=== PATIENT | female | born 1950 | race Two or more races ===

== ENCOUNTER 2020-05-21 09:17 | Emergency (ER) | payer OTHER, SELFPAY ==
[2020-05-21 11:45] VITALS: BP 158/92; PULSE 84; RESP 18; TEMP 36.9; O2SAT 98; BMI 30.7
--- NOTE | 2020-06-07 08:42 | ED.GENADULT ---
HPI - General Adult General Chief complaint: General Medical Stated complaint: PAIN EVERYWHERE Related Data Previous Rx's Medication Instructions Recorded calcium carbonate 600 mg (1,500 1 tab PO DAILY 90 Days #90 tab 02/18/21 mg)-vitamin D3 200 unit tablet (Calcium 600 + D(3)) Allergies Allergy/AdvReac Type Severity Reaction Status Date / Time lisinopril [LISINOPRIL] Allergy Intermediate SWELLING Verified 02/18/21 09:53 morphine [Morphine] Allergy Mild pruritus Verified 02/18/21 09:53 acetaminophen [Percocet] AdvReac Intermediate stomach Verified 02/18/21 09:53 upset, headaches amitriptyline AdvReac Intermediate dizziness Verified 02/18/21 09:53 celecoxib [From Celebrex] AdvReac Intermediate Dizziness Verified 02/18/21 09:53 codeine [Tylenol-Codeine] AdvReac Intermediate dizziness Verified 02/18/21 09:53 ibuprofen [IBUPROFEN] AdvReac Intermediate DIZZY Verified 02/18/21 09:53 oxycodone [Percocet] AdvReac Intermediate stomach Verified 02/18/21 09:53 upset, headaches tramadol [TRAMADOL] AdvReac Intermediate DIZZY, Verified 02/18/21 09:53 dizziness PMFSH Past Medical History Medical History Impaired glucose tolerance Knee osteoarthritis Mild depression AMBRIZ (nonalcoholic steatohepatitis) Obese Pure hypercholesterolemia Shoulder pain Surgical History History of arthroscopy of right knee History of section History of cholecystectomy History of hemorrhoidectomy Family History Family History Father Lung cancer Mother No problems noted. Social History Social History Household Members: Spouse Housing: House Do you presently have visiting nurse or other home services: No Alcohol intake: never Patient Tobacco Use Status: Never used Tobacco Tobacco use type: Cigarette e-Cigarette/Vaping Use: Never Used Second Hand Smoke Exposure: No service: No Current occupational status: retired Sexual orientation: Straight/Heterosexual Gender identity: Female Physical Exam Vital Signs: Vital Signs: Body Mass Index 30.7 Discharge Plan Discharge Patient Disposition: Left Without Being Seen Discharge Date/Time: 05/21/20 12:12
== END 2020-05-21 12:12 | disposition left against medical advice (07) ==
PROVIDERS: Emergency Provider Emergency Medicine; PCP Internal Medicine
DX: R52 Pain, unspecified (principal)
CPT/HCPCS: 99282

== ENCOUNTER 2020-05-26 09:30 | Outpatient (REF) | payer OTHER, SELFPAY ==
[2020-05-26 11:01] LABS: Alanine Aminotransferase 30 U/L (0-31); Albumin Level 4.2 g/dL (3.5-5.0); Alkaline Phosphatase 128 U/L (39-117); Anion Gap 13 (12-20); Aspartate Amino Transferase 27 U/L (5-31); Bilirubin Total 0.3 mg/dL (0.0-1.0); Blood Urea Nitrogen 17 mg/dL (9-16); Calcium 9.4 mg/dL (8.4-10.2); Carbon Dioxide 25 mmol/L (22-29); Chloride 105 mmol/L (96-108); Cholesterol 187 mg/dL; Estimated Glomerular Filt Rate > 60; Glucose Fasting 117 mg/dL (60-99); HDL Cholesterol 49 mg/dL; LDL Cholesterol Calculated 104 mg/dl; Potassium 4.4 mmol/l (3.3-5.1); Sodium 139 mmol/L (135-145); Total Protein 8.1 g/dL (6.5-8.0); Triglycerides 173 mg/dL
== END 2020-05-26 09:31 | disposition home or self-care (01) ==
LOC: HO.LAB 09:30
PROVIDERS: Visit Provider Internal Medicine
DX: E78.00 Pure hypercholesterolemia, unspecified (principal)
CPT/HCPCS: 80053; 80061

== ENCOUNTER 2020-08-14 07:56 | Outpatient (REF) | payer OTHER, SELFPAY ==
[2020-08-15 11:32] LABS: BV Int Neg Control Negative (Negative); BV Int Pos Control Positive (Positive)
[2020-08-15 13:52] LABS: C. trachomatis RNA TMA NOT DETECTED (NOT DETECTED); N. gonorrhoeae RNA TMA NOT DETECTED (NOT DETECTED)
== END 2020-08-14 07:57 | disposition home or self-care (01) ==
LOC: HO.LAB 07:56
PROVIDERS: PCP Internal Medicine; Visit Provider Obstetrics & Gynecology
DX: Z01.419 Encounter for gynecological examination (general) (routine) without abnormal findings (principal); Z11.3 Encounter for screening for infections with a predominantly sexual mode of transmission
CPT/HCPCS: 36415; 87480; 87491; 87510; 87591; 87660

== ENCOUNTER 2020-08-16 11:05 | Emergency (ER) | payer OTHER, SELFPAY ==
--- NOTE | 2020-08-16 11:10 | ECG_ITS ---
Test Reason : CHEST Blood Pressure : / mmHG Vent. Rate : 080 BPM Atrial Rate : 080 BPM P-R Int : 136 ms QRS Dur : 074 ms QT Int : 384 ms P-R-T Axes : 023 -02 047 degrees QTc Int : 442 ms Normal sinus rhythm Normal ECG No previous ECGs available Referred By: Katarzyna Willingham Electronically Signed By:ELSY TITUS MD
--- NOTE | 2020-08-16 11:10 | XR_ITS ---
EXAMINATION: XR CHEST CLINICAL INFORMATION: Cough COMPARISON: Chest radiograph from 08/16/2017 TECHNIQUE: Frontal view of the chest was obtained. FINDINGS: No focal consolidation. There is no pneumothorax. The trachea is midline. Cardiomediastinal silhouette is not enlarged. Aorta mildly tortuous. There is no pleural effusion. Osseous structures are intact. Soft tissues are unremarkable. XR/XR chest 1V IMPRESSION: No acute cardiopulmonary process.
[2020-08-16 11:12] VITALS: BP 137/56; PULSE 79; RESP 21; TEMP 37.3; O2SAT 96; BMI 32.1
--- NOTE | 2020-08-16 11:13 | ED_ITS ---
HPI - General Adult General Chief complaint: General Medical Stated complaint: weakness, cough, fever Time Seen by Provider: 08/16/20 11:09 Source: patient Mode of arrival: EMS Limitations: no limitations History of Present Illness HPI narrative: Patient comes emergency room complaining of 1 week of weakness, cough, subjective fever, nausea vomiting and diarrhea. States that she has an episode of diarrhea or vomiting almost daily. Patient had a decreased p.o. intake. Patient denies shortness of breath or chest pain. MD complaint: Vomiting, diarrhea, cough Onset (ago): week(s) Related Data Previous Rx's Medication Instructions Recorded diclofenac sodium 50 mg 50 mg PO TID 90 Days #270 tab 05/26/20 tablet,delayed release venlafaxine 37.5 mg 37.5 mg PO BEDTIME 90 Days #90 cap 06/07/20 capsule,extended release 24 hr calcium carbonate 600 mg (1,500 1 cap PO DAILY #90 cap 08/14/20 mg)-vitamin D3 500 unit capsule fluconazole 150 mg tablet 150 mg PO ONCE #1 tab 08/14/20 nystatin 100,000 unit/gram topical 1 appl TOPICAL BID 14 Days #30 g 08/14/20 ointment cefpodoxime 100 mg PO BID #14 tab 08/16/20 Allergies Allergy/AdvReac Type Severity Reaction Status Date / Time celecoxib [From Celebrex] Allergy Unknown Dizziness Verified 08/14/20 08:07 ibuprofen [IBUPROFEN] Allergy Unknown DIZZY Verified 08/14/20 08:07 lisinopril [LISINOPRIL] Allergy Unknown SWELLING Verified 08/14/20 08:07 morphine [Morphine] Allergy Unknown pruritus Verified 08/14/20 08:07 acetaminophen [Percocet] AdvReac Unknown stomach Verified 08/14/20 08:07 upset, headaches amitriptyline AdvReac Unknown dizziness Verified 08/14/20 08:07 codeine [Tylenol-Codeine] AdvReac Unknown dizziness Verified 08/14/20 08:07 oxycodone [Percocet] AdvReac Unknown stomach Verified 08/14/20 08:07 upset, headaches tramadol [TRAMADOL] AdvReac Unknown DIZZY, Verified 08/14/20 08:07 dizziness Review of Systems Review of Systems: Constitutional : Patient reporting subjective fever, chills, fatigue and generalized malaise ENT/Mouth : No Hearing loss, No Ear Pain, No Nasal Congestion, No Sinus Pain, No Hoarseness, No sore throat, No Rhinorrhea, No Swallowing Difficulty Eyes: No Eye Pain, No Swelling, No Redness, No Foreign Body, No Discharge, No Vision Changes Cardiovascular : No Chest Pain, No SOB, No Dyspnea on Exertion, No Orthopnea, No Edema, No Palpitations Respiratory : Complaining of dry cough, No Sputum, No Wheezing, No Smoke Exposu re, No Dyspnea Gastrointestinal : Complaining of nausea, vomiting, diarrhea, No Constipation, No abdominal Pain, No Hematochezia, No Melena Genitourinary : no irregular bleeding, No Dysuria, No Urinary Frequency, No Hematuria, No Urinary Incontinence, No Urgency, No Flank Pain, No Urinary Flow Changes, No Hesitancy Musculoskeletal : No joint pain, No Myalgias, No Joint Swelling Skin : No Skin Lesions, No rash Neuro : No Weakness, No Numbness, No Paresthesias, No Loss of Consciousness, No Dizziness, No Headache Psych : No Anxiety/Panic, No Depression, No SI/HI/AH/VH, No Social Issues, Heme/Lymph: No Bruising, No Bleeding,No Lymphadenopathy Endocrine : No Polyuria, No Polydipsia, No Temperature Intolerance [facility] Past Medical History Medical History (Updated 08/16/20 @ 12:55 by Katarzyna Willingham MD) Knee osteoarthritis Mild depression AMBRIZ (nonalcoholic steatohepatitis) Pure hypercholesterolemia Surgical History History of arthroscopy of right knee History of section History of cholecystectomy History of hemorrhoidectomy Family History Family History Father Lung cancer Mother No problems noted. Social History Social History (Updated 08/14/20 @ 08:07 by DANIELLE Bahena) Alcohol intake: never Smoking Status: Never smoker Use of substances other than those prescribed or required for medical reasons: No Advance Directives: No Advance Directives Information Provided: No Sexual orientation: Straight/Heterosexual Gender identity: female Physical Exam Vital Signs: Vital Signs: Last Vital Signs Temp 99.1 F 08/16/20 11:12 Pulse 79 08/16/20 11:12 Resp 21 H 08/16/20 11:12 BP 137/56 L 08/16/20 11:12 Pulse Ox 96 08/16/20 11:12 Body Mass Index 32.1 Course Course Course Narrative: Patient's nurse and I walked the patient around the [facility] hallway, patient's oxygen saturations stayed at 96%, patient was able to ambulate without assistance Patient's symptoms likely secondary to COVID-19. Patient does have a UTI, white blood cell count within normal limits, no fever, not tachycardic. At this time sepsis is not suspected. Patient's oxygen saturation remains at 99% on room air, respiratory rate 20 Given the patient's age, weakness due to UTI, and COVID-19, I offered and recommended for the patient to be admitted. However patient says that she does not want to stay, states that although she is weak, she can take care of herself, and her can help her as well. Medical Decision Making Lab Data Result diagrams: 08/16/20 11:47 08/16/20 11:46 Labs: Lab Results 08/16/20 08/16/20 08/16/20 Range/Units 11:46 11:46 11:47 WBC 6.5 (4.8-10.8) X10*3/uL RBC 4.68 (4.20-5.50) X10*6/uL Hgb 12.8 (12.0-16.0) g/dl Hct 39.7 (37-47) % MCV 84.8 (80-98) fL MCH 27.4 (27.0-33.0) pg MCHC 32.2 (31.0-35.0) g/dl RDW 13.1 (11.0-16.0) % Plt Count 186 (160-400) X10*3/uL MPV 10.6 (9.4-12.3) fL Immature Gran % (Auto) 0.2 (0.0-0.4) % Neut % (Auto) 57.1 (45-73) % Lymph % (Auto) 30.7 (20-40) % Dickenson % (Auto) 11.8 H (2-11) % Eos % (Auto) 0.0 (0-4) % Baso % (Auto) 0.2 (0-2) % Lymph # (Auto) 2.0 (1.2-4.9) X10*3/uL [place]enson # (Auto) 0.8 (0.1-1.2) X10*3/uL Eos # (Auto) 0.0 (0.0-0.4) X10*3/uL Baso # (Auto) 0.0 (0.0-0.2) X10*3/uL Abs Immat Gran (auto) 0.01 (0.00-0.03) X10*3/uL Absolute Neuts (auto) 3.7 (2.0-8.3) X10*3/uL Absolute Nucleated RBC 0.000 (0.0-0.012) X10*3/uL Nucleated RBC % (auto) 0.0 (0.0-0.2) /100WBC Sodium 141 (135-145) mmol/L Potassium 4.4 (3.3-5.1) mmol/l Chloride 106 (96-108) mmol/L Carbon Dioxide 22 (22-29) mmol/L Anion Gap 17 (12-20) BUN 18 H (9-16) mg/dL Creatinine 0.93 (0.5-1.4) mg/dL Estim Creat Clear Calc 54.3 Estimated GFR 60 Random Glucose 136 H (60-115) mg/dL Calcium 8.7 D (8.4-10.2) mg/dL Total Bilirubin 0.5 (0.0-1.0) mg/dL Direct Bilirubin 0.2 (0.0-0.5) mg/dL AST 74 H (5-31) U/L ALT 48 H (0-31) U/L Alkaline Phosphatase 72 D (39-117) U/L B-Natriuretic Peptide < 10 (<100) pg/mL Total Protein 8.2 H (6.5-8.0) g/dL Albumin 4.1 (3.5-5.0) g/dL Urine Color Urine Appearance Urine pH (5.0-8.0) Ur Specific Metaline (1.005-1.025) Urine Protein (NEG-TRACE) MG/DL Urine Glucose (UA) (NEG) MG/DL Urine Ketones (NEG) MG/DL Urine Blood (NEG) Urine Nitrite (NEG) Ur Leukocyte Esterase (NEG) Urine RBC (0) /HPF Urine WBC (0-4) /HPF Ur Squamous Epith Cells /LPF Urine Bacteria /LPF Urine Mucus /LPF Coronavirus (PCR) (Negative) Influenza Type A (PCR) (Negative) Influenza Type B (PCR) (Negative) RSV RNA Qual (PCR) (Negative) 08/16/20 08/16/20 Range/Units 11:47 11:47 WBC (4.8-10.8) X10*3/uL RBC (4.20-5.50) X10*6/uL Hgb (12.0-16.0) g/dl Hct (37-47) % MCV (80-98) fL MCH (27.0-33.0) pg MCHC (31.0-35.0) g/dl RDW (11.0-16.0) % Plt Count (160-400) X10*3/uL MPV (9.4-12.3) fL Immature Gran % (Auto) (0.0-0.4) % Neut % (Auto) (45-73) % Lymph % (Auto) (20-40) % Dickenson % (Auto) (2-11) % Eos % (Auto) (0-4) % Baso % (Auto) (0-2) % Lymph # (Auto) (1.2-4.9) X10*3/uL Dickenson # (Auto) (0.1-1.2) X10*3/uL Eos # (Auto) (0.0-0.4) X10*3/uL Baso # (Auto) (0.0-0.2) X10*3/uL Abs Immat Gran (auto) (0.00-0.03) X10*3/uL Absolute Neuts (auto) (2.0-8.3) X10*3/uL Absolute Nucleated RBC (0.0-0.012) X10*3/uL Nucleated RBC % (auto) (0.0-0.2) /100WBC Sodium (135-145) mmol/L Potassium (3.3-5.1) mmol/l Chloride (96-108) mmol/L Carbon Dioxide (22-29) mmol/L Anion Gap (12-20) BUN (9-16) mg/dL Creatinine (0.5-1.4) mg/dL Estim Creat Clear Calc Estimated GFR Random Glucose (60-115) mg/dL Calcium (8.4-10.2) mg/dL Total Bilirubin (0.0-1.0) mg/dL Direct Bilirubin (0.0-0.5) mg/dL AST (5-31) U/L ALT (0-31) U/L Alkaline Phosphatase (39-117) U/L B-Natriuretic Peptide (<100) pg/mL Total Protein (6.5-8.0) g/dL Albumin (3.5-5.0) g/dL Urine Color DARK YELLOW Urine Appearance CLOUDY Urine pH 6.0 (5.0-8.0) Ur Specific Metaline >= 1.030 H (1.005-1.025) Urine Protein 2+ H (NEG-TRACE) MG/DL Urine Glucose (UA) NEG (NEG) MG/DL Urine Ketones 5 (NEG) MG/DL Urine Blood TRACE (NEG) Urine Nitrite POS H (NEG) Ur Leukocyte Esterase 1+ H (NEG) Urine RBC 0-2 (0) /HPF Urine WBC 5-9 H (0-4) /HPF Ur Squamous Epith Cells 3+ /LPF Urine Bacteria 2+ /LPF Urine Mucus TRACE /LPF Coronavirus (PCR) POSITIVE A (Negative) Influenza Type A (PCR) NEGATIVE (Negative) Influenza Type B (PCR) NEGATIVE (Negative) RSV RNA Qual (PCR) NEGATIVE (Negative) Imaging Data Chest x-ray: Radiologist's impression: No focal consolidation Discharge Plan Discharge Clinical Impression: COVID-19, Acute UTI Patient Disposition: Home, Self-Care Instructions: Dysuria (ED), COVID-19 (Coronavirus Disease 2019) (ED) Additional Instructions: You tested positive for COVID-19. You need to self quarantine for 14 days. If you have any shortness of breath, worsening symptoms, please return to emergency room or call 911. Prescriptions: New cefpodoxime 100 mg tablet 100 mg PO BID Qty: 14 RF: 0 No Action venlafaxine 37.5 mg capsule,extended release 24hr 37.5 mg PO BEDTIME 90 Days Qty: 90 RF: 3 diclofenac sodium 50 mg tablet,delayed release (DR/EC) 50 mg PO TID 90 Days Qty: 270 RF: 2 calcium carbonate-vitamin D3 [Calcium 600 with Vitamin D3] 600 mg(1,500mg) - 500 unit capsule 1 cap PO DAILY Qty: 90 RF: 3 fluconazole 150 mg tablet 150 mg PO ONCE Qty: 1 RF: 0 nystatin 100,000 unit/gram ointment 1 appl topical BID 14 Days Qty: 30 RF: 0
[2020-08-16 11:53] LABS: Basophils Percent Auto 0.2 % (0-2); Hematocrit 39.7 % (37-47); Hemoglobin 12.8 g/dl (12.0-16.0); Imm Gran Abs Auto 0.01 X10*3/uL (0.00-0.03); Imm Gran Pct Auto 0.2 % (0.0-0.4); Lymphocytes Percent Auto 30.7 % (20-40); MANUAL DIFF FLAG NO; Mean Corpuscular HGB Conc 32.2 g/dl (31.0-35.0); Mean Corpuscular Hemoglobin 27.4 pg (27.0-33.0); Mean Corpuscular Volume 84.8 fL (80-98); Mean Platelet Volume 10.6 fL (9.4-12.3); Monocytes Absolute Auto 0.8 X10*3/uL (0.1-1.2); Monocytes Percent Auto 11.8 % (2-11); Neutrophils Absolute Auto 3.7 X10*3/uL (2.0-8.3); Neutrophils Percent Auto 57.1 % (45-73); Platelet Count 186 X10*3/uL (160-400); Red Blood Count 4.68 X10*6/uL (4.20-5.50); Red Cell Distribution Width 13.1 % (11.0-16.0); White Blood Count 6.5 X10*3/uL (4.8-10.8)
[2020-08-16] MEDS: 0.9 % Sodium Chloride 1,000 ML 999 ML IVCONT (11:53)
[2020-08-16] MEDS: ondansetron HCL 4 MG/2 ML VIAL IVPUSH (11:53)
[2020-08-16] MEDS: Loperamide HCl 2 MG CAPSULE 4 MG PO (11:53)
[2020-08-16 11:56] LABS: Glucose Urine UA NEG (NEG); Leukocyte Esterase Urine 1+ (NEG); Nitrite Urine POS (NEG); Specific Gravity - Urine >= 1.030 (1.005-1.025); Urine Blood TRACE (NEG); Urine Ketones 5 MG/DL (NEG); Urine Protein 2+ MG/DL (NEG-TRACE)
[2020-08-16 12:01] LABS: Appearance Urine CLOUDY; Color Urine DARK YELLOW
[2020-08-16 12:08] LABS: Bacteria Urine 2+ /LPF; Mucus Urine TRACE /LPF; RBC Urine 0-2 /HPF (0); Squamous Epithelial Cell Urine 3+ /LPF
[2020-08-16 12:32] LABS: Influenza A PCR NEGATIVE (Negative); Influenza B PCR NEGATIVE (Negative); Resp Syncy Virus RNA Qual PCR NEGATIVE (Negative); SARS COV2 PCR INHOUSE POSITIVE (Negative)
[2020-08-16 12:41] LABS: Alanine Aminotransferase 48 U/L (0-31); Albumin Level 4.1 g/dL (3.5-5.0); Alkaline Phosphatase 72 U/L (39-117); Anion Gap 17 (12-20); Aspartate Amino Transferase 74 U/L (5-31); Bilirubin Direct 0.2 mg/dL (0.0-0.5); Bilirubin Total 0.5 mg/dL (0.0-1.0); Blood Urea Nitrogen 18 mg/dL (9-16); Calcium 8.7 mg/dL (8.4-10.2); Carbon Dioxide 22 mmol/L (22-29); Chloride 106 mmol/L (96-108); Creatinine Clr Calc Pharmacy 54.3; Estimated Glomerular Filt Rate 60; Glucose Random 136 mg/dL (60-115); Potassium 4.4 mmol/l (3.3-5.1); Sodium 141 mmol/L (135-145); Total Protein 8.2 g/dL (6.5-8.0)
[2020-08-16 12:46] LABS: B Type Natriuretic Peptide < 10 pg/mL (<100)
[2020-08-16] MEDS: cefTRIAXone sodium 1 GM in 0.9 % Sodium Chloride 50 ML IV (12:57)
[2020-08-16] MEDS: dexAMETHasone sod phosphate 4 MG/ML VIAL 6 MG IVPUSH (12:57)
[2020-08-16 13:37] LABS: Procalcitonin 0.07 ng/mL
== END 2020-08-16 13:41 | disposition home or self-care (01) ==
PROVIDERS: Emergency Provider Emergency Medicine
DX: U07.1 COVID-19 (principal); N39.0 Urinary tract infection, site not specified; R50.9 Fever, unspecified; Z79.899 Other long term (current) drug therapy
CPT/HCPCS: 0241U; 36415; 71045; 80048; 80076; 81001; 81003; 83880; 84145; 85025; 87086; 93005; 96361; 96365; 96375; 99284; J0696; J1100; J2405

== ENCOUNTER 2020-08-18 18:08 | Inpatient (IN) | payer OTHER, SELFPAY ==
[2020-08-18 18:18] VITALS: BP 120/46; PULSE 69; RESP 18; TEMP 36.9; O2SAT 100; BMI 32.1
--- NOTE | 2020-08-18 18:23 | ED_ITS ---
HPI - SOB/Dyspnea General Chief Complaint: Upper Respiratory Symptoms Stated Complaint: DIFFICULTY BREATHING,COVID+ Time Seen by Provider: 08/18/20 18:23 Source: patient Mode of arrival: EMS Limitations: no limitations History of Present Illness HPI Narrative: Patient with no history of lung disease in the past was seen 2 days ago for cough subjective fever nausea vomiting diagnosed as UTI and COVID positive without significant lung infiltrate was saturating 96% at that time and discharged home on cefpodoxime for UTI comes back as continued cough and more shortness of breath and weakness patient was saturating 93% at room air with frequent dry cough when EMS arrived MD elicited complaint: shortness of breath and cough Timing: constant Severity: moderate Exacerbating factors: exertion and coughing Relieving factors: oxygen Related Data Previous Rx's Medication Instructions Recorded diclofenac sodium 50 mg 50 mg PO TID 90 Days #270 tab 05/26/20 tablet,delayed release venlafaxine 37.5 mg 37.5 mg PO BEDTIME 90 Days #90 cap 06/07/20 capsule,extended release 24 hr calcium carbonate 600 mg (1,500 1 cap PO DAILY #90 cap 08/14/20 mg)-vitamin D3 500 unit capsule fluconazole 150 mg tablet 150 mg PO ONCE #1 tab 08/14/20 nystatin 100,000 unit/gram topical 1 appl TOPICAL BID 14 Days #30 g 08/14/20 ointment cefpodoxime 100 mg PO BID #14 tab 08/16/20 Allergies Allergy/AdvReac Type Severity Reaction Status Date / Time celecoxib [From Celebrex] Allergy Unknown Dizziness Verified 08/14/20 08:07 ibuprofen [IBUPROFEN] Allergy Unknown DIZZY Verified 08/14/20 08:07 lisinopril [LISINOPRIL] Allergy Unknown SWELLING Verified 08/14/20 08:07 morphine [Morphine] Allergy Unknown pruritus Verified 08/14/20 08:07 acetaminophen [Percocet] AdvReac Unknown stomach Verified 08/14/20 08:07 upset, headaches amitriptyline AdvReac Unknown dizziness Verified 08/14/20 08:07 codeine [Tylenol-Codeine] AdvReac Unknown dizziness Verified 08/14/20 08:07 oxycodone [Percocet] AdvReac Unknown stomach Verified 08/14/20 08:07 upset, headaches tramadol [TRAMADOL] AdvReac Unknown DIZZY, Verified 08/14/20 08:07 dizziness Review of Systems Review of Systems: Constitutional : No Weight loss, + Fever, No Chills ,malaise+ ENT/Mouth : No sore throat, No Rhinorrhea Eyes: No Eye Pain, No Swelling Cardiovascular : No Chest Pain, no palpitations Respiratory : ++Cough, No Sputum, ++ shortness of breath Gastrointestinal : no Nausea, No Vomiting, No Diarrhea, No abdominal Pain, no black stools Genitourinary : No Dysuria, No Urinary Frequency Musculoskeletal : No joint pain, No Myalgias, No Joint Swelling Skin : No Skin Lesions, No rash Neuro : No Weakness, No Numbness, No Dizziness, No Headache Psych : No Anxiety/Panic, No Depression Heme/Lymph: No Bruising, No Lymphadenopathy Endocrine : No Polyuria, No Polydipsia All other systems reviewed and are negative PMF Past Medical History Medical History Knee osteoarthritis Mild depression AMBRIZ (nonalcoholic steatohepatitis) Pure hypercholesterolemia Surgical History History of arthroscopy of right knee History of section History of cholecystectomy History of hemorrhoidectomy Family History Family History Father Lung cancer Mother No problems noted. Social History Social History Alcohol intake: never Smoking Status: Never smoker Advance Directives: No Advance Directives Information Provided: No Sexual orientation: Straight/Heterosexual Gender identity: female Physical Exam Vital Signs: Vital Signs: Last Vital Signs Temp 98.4 F 08/18/20 18:18 Pulse 68 08/18/20 19:49 Resp 18 08/18/20 19:49 BP 133/59 L 08/18/20 19:49 Pulse Ox 88 L 08/18/20 21:43 Body Mass Index 32.1 Appearance: Alert. Oriented X3. No acute distress. Eyes: Pupils equal, round and reactive to light. ENT: Pharynx normal. Neck: Normal inspection. Neck supple. CVS: Normal heart rate and rhythm. Pulses normal. Respiratory: Mild respiratory distress. Tachypnea+, no crackles, prolonged ex piration++ frequent dry cough Abdomen: Soft and nontender. Bowel sounds are present, no mass palpable, no CVA tenderness Skin: Skin warm and dry. Normal skin color. Normal skin turgor. Extremities: No lower extremity edema. No calf tenderness Neuro: Oriented X 3. No motor deficit. No sensory deficit. Course Course Course Narrative: Patient with COVID-19 CT scan showed diffuse infiltrate pat ient pulse ox at home was 93% at room air in the ER did drop to 88% at room air improved on 4 L to 94% will admit patient for COVID 19 infection with hypoxia also patient troponin elevated without any EKG changes MDM - SOB/Dyspnea Differential Diagnosis Differential diagnosis: Likely pneumonia Medical Records Attestation: I reviewed the patient's medical records. Lab Data Attestation: I reviewed the patient's lab results. Result diagrams: 08/18/20 19:33 08/18/20 19:33 Labs: Lab Results 08/18/20 08/18/20 08/18/20 Range/Units 19:33 19:33 19:33 WBC 7.5 (4.8-10.8) X10*3/uL RBC 4.30 (4.20-5.50) X10*6/uL Hgb 11.7 L (12.0-16.0) g/dl Hct 36.5 L (37-47) % MCV 84.9 (80-98) fL MCH 27.2 (27.0-33.0) pg MCHC 32.1 (31.0-35.0) g/dl RDW 13.3 (11.0-16.0) % Plt Count 216 (160-400) X10*3/uL MPV 10.8 (9.4-12.3) fL Immature Gran % (Auto) 0.3 (0.0-0.4) % Neut % (Auto) 58.7 (45-73) % Lymph % (Auto) 31.1 (20-40) % [place] % (Auto) 9.8 (2-11) % Eos % (Auto) 0.0 (0-4) % Baso % (Auto) 0.1 (0-2) % Lymph # (Auto) 2.3 (1.2-4.9) X10*3/uL [place] # (Auto) 0.7 (0.1-1.2) X10*3/uL Eos # (Auto) 0.0 (0.0-0.4) X10*3/uL Baso # (Auto) 0.0 (0.0-0.2) X10*3/uL Abs Immat Gran (auto) 0.02 (0.00-0.03) X10*3/uL Absolute Neuts (auto) 4.4 (2.0-8.3) X10*3/uL Absolute Nucleated RBC 0.000 (0.0-0.012) X10*3/uL Nucleated RBC % (auto) 0.0 (0.0-0.2) /100WBC PT 14.0 H (10.8-13.0) SEC INR 1.2 H (0.9-1.1) APTT 28.1 (24.1-38.0) SEC D-Dimer 342 NG/ML Sodium 142 (135-145) mmol/L Potassium 3.7 (3.3-5.1) mmol/l Chloride 107 (96-108) mmol/L Carbon Dioxide 24 (22-29) mmol/L Anion Gap 15 (12-20) BUN 14 (9-16) mg/dL Creatinine 0.84 (0.5-1.4) mg/dL Estim Creat Clear Calc 60.2 Estimated GFR > 60 Random Glucose 125 H (60-115) mg/dL Lactic Acid (0.5-2.0) mmol/L Calcium 8.2 L (8.4-10.2) mg/dL Lactate Dehydrogenase 390 H (122-220) U/L Troponin I High Sens (<3.5-17.0) ng/L Procalcitonin ng/mL 08/18/20 08/18/20 08/18/20 Range/Units 19:33 19:33 19:50 WBC (4.8-10.8) X10*3/uL RBC (4.20-5.50) X10*6/uL Hgb (12.0-16.0) g/dl Hct (37-47) % MCV (80-98) fL MCH (27.0-33.0) pg MCHC (31.0-35.0) g/dl RDW (11.0-16.0) % Plt Count (160-400) X10*3/uL MPV (9.4-12.3) fL Immature Gran % (Auto) (0.0-0.4) % Neut % (Auto) (45-73) % Lymph % (Auto) (20-40) % [place] % (Auto) (2-11) % Eos % (Auto) (0-4) % Baso % (Auto) (0-2) % Lymph # (Auto) (1.2-4.9) X10*3/uL [place] # (Auto) (0.1-1.2) X10*3/uL Eos # (Auto) (0.0-0.4) X10*3/uL Baso # (Auto) (0.0-0.2) X10*3/uL Abs Immat Gran (auto) (0.00-0.03) X10*3/uL Absolute Neuts (auto) (2.0-8.3) X10*3/uL Absolute Nucleated RBC (0.0-0.012) X10*3/uL Nucleated RBC % (auto) (0.0-0.2) /100WBC PT (10.8-13.0) SEC INR (0.9-1.1) APTT (24.1-38.0) SEC D-Dimer NG/ML Sodium (135-145) mmol/L Potassium (3.3-5.1) mmol/l Chloride (96-108) mmol/L Carbon Dioxide (22-29) mmol/L Anion Gap (12-20) BUN (9-16) mg/dL Creatinine (0.5-1.4) mg/dL Estim Creat Clear Calc Estimated GFR Random Glucose (60-115) mg/dL Lactic Acid 1.4 (0.5-2.0) mmol/L Calcium (8.4-10.2) mg/dL Lactate Dehydrogenase (122-220) U/L Troponin I High Sens 55.8 H (<3.5-17.0) ng/L Procalcitonin 0.04 ng/mL ECG Data Attestation: I personally reviewed and interpreted this ECG as follows: Interpretation: Normal sinus rhythm with heart rate 69 beats per minute normal axis normal intervals no acute ST T wave changes impression normal EKG Discharge Plan Discharge Clinical Impression: COVID-19, Hypoxia Patient Disposition: Admitted As Inpatient
--- NOTE | 2020-08-18 18:32 | CT_ITS ---
EXAMINATION: CT CHEST WITHOUT CONTRAST CLINICAL INFORMATION: Hypoxia COMPARISON: Chest x-ray 08/16/2020 TECHNIQUE: Multidetector volumetric CT imaging of the chest was done. Axial MIP volume rendering provided. Sagittal and coronal reformatted images were obtained. This CT examination was performed using dose optimization techniques as appropriate, variously including the following: *Automated exposure control *Adjustment of mA and/or kV according to patient size (this includes techniques or standardized protocols for targeted exams where dose is matched to indication/reason for exam; i.e. extremities or head) *Use of iterative reconstruction technique DLP: 299 mGy-cm FINDINGS: PE MANAGER: Well-expanded lungs. LUNGS: The lungs are well-expanded with extensive bilateral ill-defined patchy opacities seen in upper middle and lower lobe suggestive of Covid infection. There is a 3 mm calcified nodule right upper lobe MEDIASTINUM: Thyroid lobes are symmetrical and normal. The central trachea and bronchi widely patent. The heart size and the great vessels are normal caliber. There is calcified right middle mediastinal lymph nodes PLEURA: There is no pleural effusion or thickening. AXILLA: No lymphadenopathy. UPPER ABDOMEN: Visualized liver, spleen, pancreas and bilateral adrenal glands are unremarkable. The gallbladder has been surgically removed. OSSEOUS STRUCTURES: No lytic or sclerotic process seen. There is mild spondylosis mid and lower dorsal spine. No lytic process. CT/CT chest wo con IMPRESSION: Bilateral extensive ill-defined patchy opacity consistent with Covid infection. Calcification the right pericardial region likely lymph node and adjacent calcified nodule right upper lobe.
--- NOTE | 2020-08-18 18:34 | ECG_ITS ---
Test Reason : COUGH Blood Pressure : / mmHG Vent. Rate : 069 BPM Atrial Rate : 069 BPM P-R Int : 140 ms QRS Dur : 082 ms QT Int : 392 ms P-R-T Axes : 011 -07 032 degrees QTc Int : 420 ms Normal sinus rhythm Normal ECG When compared with ECG of 16-AUG-2020 11:35, No significant change was found Referred By: Carrington Castelan Electronically Signed By:ELSY TITUS MD
[2020-08-18 19:45] LABS: MANUAL DIFF FLAG NO
[2020-08-18 19:47] LABS: Basophils Percent Auto 0.1 % (0-2); Hematocrit 36.5 % (37-47); Hemoglobin 11.7 g/dl (12.0-16.0); Imm Gran Abs Auto 0.02 X10*3/uL (0.00-0.03); Imm Gran Pct Auto 0.3 % (0.0-0.4); Lymphocytes Absolute Auto 2.3 X10*3/uL (1.2-4.9); Lymphocytes Percent Auto 31.1 % (20-40); Mean Corpuscular HGB Conc 32.1 g/dl (31.0-35.0); Mean Corpuscular Hemoglobin 27.2 pg (27.0-33.0); Mean Corpuscular Volume 84.9 fL (80-98); Mean Platelet Volume 10.8 fL (9.4-12.3); Monocytes Absolute Auto 0.7 X10*3/uL (0.1-1.2); Monocytes Percent Auto 9.8 % (2-11); Neutrophils Absolute Auto 4.4 X10*3/uL (2.0-8.3); Neutrophils Percent Auto 58.7 % (45-73); Platelet Count 216 X10*3/uL (160-400); Red Cell Distribution Width 13.3 % (11.0-16.0); White Blood Count 7.5 X10*3/uL (4.8-10.8)
[2020-08-18 19:49] VITALS: BP 133/59; PULSE 68; RESP 18; O2SAT 97
[2020-08-18 19:55] LABS: INTERNATIONAL NORM RATIO 1.2 (0.9-1.1)
[2020-08-18 19:58] LABS: D Dimer 342 NG/ML; Partial Thromboplastin Time 28.1 SEC (24.1-38.0)
[2020-08-18 20:03] LABS: Lactic Acid 1.4 mmol/L (0.5-2.0)
[2020-08-18 20:06] LABS: Anion Gap 15 (12-20); Blood Urea Nitrogen 14 mg/dL (9-16); Calcium 8.2 mg/dL (8.4-10.2); Carbon Dioxide 24 mmol/L (22-29); Chloride 107 mmol/L (96-108); Creatinine Clr Calc Pharmacy 60.2; Estimated Glomerular Filt Rate > 60; Glucose Random 125 mg/dL (60-115); Lactate Dehydrogenase 390 U/L (122-220); Potassium 3.7 mmol/l (3.3-5.1); Sodium 142 mmol/L (135-145)
[2020-08-18 20:14] VITALS: PULSE 67; O2SAT 97
[2020-08-18 20:16] LABS: Troponin-I High Sensitivity 55.8 ng/L (<3.5-17.0)
[2020-08-18 20:31] LABS: Procalcitonin 0.04 ng/mL
[2020-08-18 21:43] VITALS: O2SAT 88
--- NOTE | 2020-08-18 21:44 | PC.NURSE ---
PT REMOVED HE NC/OXYGEN 4 LPM. SPO2 88% ROOM AIR. O2 PLACED BACK ON PT BY MD, SPO2 IMPROVED TO HIGH 90'S.
[2020-08-18 22:10] VITALS: BP 117/56; PULSE 76; RESP 20; TEMP 37.9; O2SAT 97
[2020-08-18 23:03] LABS: Troponin-I High Sensitivity 52.9 ng/L (<3.5-17.0)
--- NOTE | 2020-08-18 23:21 | PM.IMHP ---
History of Present Illness Date of Service: 08/18/20 Chief Complaint: Shortness of breath This is a 70-year-old female with past medical history of AMBRIZ, hypercholesterolemia, depression who presents to the hospital with complaints of worsening shortness of breath. Patient is Hebrew-speaking, no staff interpreter on site and therefore history is obtained mostly from staff and EMR. It appears the patient was diagnosed with COVID-19 on recent visit to ED new [facility], returns today stating that her symptoms have worsened including shortness of breath, coughing, and sputum production. She also had nausea vomiting complain of urinary symptoms. She was satting in the high 90s and therefore was sent home on p.o. antibiotics for UTI and was told to follow-up with her symptoms worsened. She returns today stating worsening shortness of breath and cough and overall feeling worse. Patient found to be satting 88% on room air. Vitals on arrival are significant for temp of a 100.2?, heart rate of 76, respiratory rate of 20, blood pressure 117/56, satting 88% on room air, currently on 2 L satting 97% Labs are significant for WBC count 7.5, hemoglobin of 11.7, hematocrit of 36.5, PT of 14, INR 1.2, lactic acid of 1.4, high sensitivity troponin of 55 which trended down to 52.9, denies any chest pain. Procalcitonin of 0.[address] shows bilateral extensive ill-defined patchy opacities consistent with COVID infection Past medical history: Osteoarthritis, hyperlipidemia,AMBRIZ, depression Past surgical history: Knee arthroscopy, , cholecystectomy, hemorrhoidectomy Family history: Lung cancer in father Social history: Comes from home, denies any tobacco alcohol or illicit drugs Review of Systems Review of Systems: Yes all other systems are reviewed and are negative [facility] Medical History Knee osteoarthritis Mild depression AMBRIZ (nonalcoholic steatohepatitis) Pure hypercholesterolemia Family History Father Lung cancer Mother No problems noted. Surgical History History of arthroscopy of right knee History of section History of cholecystectomy History of hemorrhoidectomy Social History Alcohol intake: never Smoking Status: Never smoker Use of substances other than those prescribed or required for medical reasons: No Advance Directives: No Advance Directives Information Provided: No Sexual orientation: Straight/Heterosexual Gender identity: female Meds Allergies Allergy/AdvReac Type Severity Reaction Status Date / Time celecoxib [From Celebrex] Allergy Unknown Dizziness Verified 08/14/20 08:07 ibuprofen [IBUPROFEN] Allergy Unknown DIZZY Verified 08/14/20 08:07 lisinopril [LISINOPRIL] Allergy Unknown SWELLING Verified 08/14/20 08:07 morphine [Morphine] Allergy Unknown pruritus Verified 08/14/20 08:07 acetaminophen [Percocet] AdvReac Unknown stomach Verified 08/14/20 08:07 upset, headaches amitriptyline AdvReac Unknown dizziness Verified 08/14/20 08:07 codeine [Tylenol-Codeine] AdvReac Unknown dizziness Verified 08/14/20 08:07 oxycodone [Percocet] AdvReac Unknown stomach Verified 08/14/20 08:07 upset, headaches tramadol [TRAMADOL] AdvReac Unknown DIZZY, Verified 08/14/20 08:07 dizziness Physical Exam Vital Signs and Narrative: Vital Signs: Last Vital Signs Temp 100.2 F 08/18/20 22:10 Pulse 76 08/18/20 22:10 Resp 20 08/18/20 22:10 BP 117/56 L 08/18/20 22:10 Pulse Ox 97 08/18/20 22:10 Body Mass Index 32.1 Const: General: cooperative, no acute distress, ill appearing and tired appearing Orientation/consciousness: patient oriented x3 Eyes: General: appearance normal, both eyes and all related structures Resp: Other: Tachypneic Effort & Inspection: normal respiratory effort Auscultation: rhonchi Cardio: Rate: regular rate Rhythm: regular rhythm GI: Palpation (GI): Soft to palpation Auscultation: normal bowel sounds Skin: General skin exam: no rashes or lesions noted Neuro: General: patient oriented x3 Cognition (Neuro): normal cognition Extrem: General: Yes normal to inspection and Yes no pedal edema Results Labs CBC and Chem 7: 08/18/20 19:33 08/18/20 19:33 Labs: Laboratory Results - last 24 hr 08/18/20 08/18/20 08/18/20 19:33 19:33 19:33 MCV 84.9 MCH 27.2 MCHC 32.1 RDW 13.3 Plt Count 216 MPV 10.8 Immature Gran % (Auto) 0.3 Neut % (Auto) 58.7 Lymph % (Auto) 31.1 [place] % (Auto) 9.8 Eos % (Auto) 0.0 Baso % (Auto) 0.1 Lymph # (Auto) 2.3 [place] # (Auto) 0.7 Eos # (Auto) 0.0 Baso # (Auto) 0.0 Abs Immat Gran (auto) 0.02 Absolute Neuts (auto) 4.4 Absolute Nucleated RBC 0.000 Nucleated RBC % (auto) 0.0 PT 14.0 H INR 1.2 H APTT 28.1 D-Dimer 342 Anion Gap 15 Estim Creat Clear Calc 60.2 Estimated GFR > 60 Random Glucose 125 H Lactic Acid Calcium 8.2 L Lactate Dehydrogenase 390 H Troponin I High Sens Procalcitonin 08/18/20 08/18/20 08/18/20 19:33 19:33 19:50 MCV MCH MCHC RDW Plt Count MPV Immature Gran % (Auto) Neut % (Auto) Lymph % (Auto) [place] % (Auto) Eos % (Auto) Baso % (Auto) Lymph # (Auto) [place] # (Auto) Eos # (Auto) Baso # (Auto) Abs Immat Gran (auto) Absolute Neuts (auto) Absolute Nucleated RBC Nucleated RBC % (auto) PT INR APTT D-Dimer Anion Gap Estim Creat Clear Calc Estimated GFR Random Glucose Lactic Acid 1.4 Calcium Lactate Dehydrogenase Troponin I High Sens 55.8 H Procalcitonin 0.04 08/18/20 22:17 MCV MCH MCHC RDW Plt Count MPV Immature Gran % (Auto) Neut % (Auto) Lymph % (Auto) [place] % (Auto) Eos % (Auto) Baso % (Auto) Lymph # (Auto) [place] # (Auto) Eos # (Auto) Baso # (Auto) Abs Immat Gran (auto) Absolute Neuts (auto) Absolute Nucleated RBC Nucleated RBC % (auto) PT INR APTT D-Dimer Anion Gap Estim Creat Clear Calc Estimated GFR Random Glucose Lactic Acid Calcium Lactate Dehydrogenase Troponin I High Sens 52.9 H Procalcitonin Imaging Radiologist's Impressions: Impressions Chest CT 08/18/20 18:32 IMPRESSION: Bilateral extensive ill-defined patchy opacity consistent with Covid infection. Calcification the right pericardial region likely lymph node and adjacent calcified nodule right upper lobe. Assessment and Plan (1) Pneumonia due to COVID-19 virus: Status: Acute (2) Sepsis: Qualifiers: Acute respiratory failure type: with hypoxia Sepsis acute organ dysfunction status: with acute organ dysfunction Sepsis type: sepsis due to unspecified organism Severe sepsis acute organ dysfunction type: acute respiratory failure Severe sepsis shock status: without septic shock Qualified Code(s): A41.9 - Sepsis, unspecified organism; R65.20 - Severe sepsis without septic shock; J96.01 - Acute respiratory failure with hypoxia Status: Acute (3) UTI (urinary tract infection): Qualifiers: Hematuria presence: without hematuria Urinary tract infection type: acute cystitis Qualified Code(s): N30.00 - Acute cystitis without hematuria Status: Acute (4) Respiratory failure with hypoxia: Status: Acute 62-year-old female presents to the hospital with worsening symptoms of COVID-19 infection # sepsis - secondary to COVID-19 pneumonia - has tachypnea, fever, no leukocytosis, no lactic acid elevation Plan: - procalcitonin low therefore unlikely to be bacterial therefore will hold off starting on antibiotics for pneumonia - was started on Decadron 6 mg daily given hypoxia - follow cultures # COVID-19 pneumonia - most COVID-19 positive and 08/16 presents with worsening symptoms - chest CT demonstrates bilateral infiltrates suggestive of COVID-19 Plan: - Decadron 6 mg daily - oxygen supplement - monitor respiratory status # UTI - presented on 08/16 with urinary track symptoms found to have UTI/acute cystitis - sent home on cefpodoxime - will start her on ceftriaxone given the fact the patient is in the hospital, - follow urine and blood cultures drawn on 08/16 # acute hypoxic respiratory failure - secondary to above - will give oxygen supplement - monitor she respiratory status - wean off oxygen as tolerated DVT prophylaxis: Lovenox
[2020-08-19] VITALS (8 sets, daily range): BP systolic 96–133; BP diastolic 44–63; PULSE 54–75; RESP 16–26; TEMP 36.1–37.2; O2SAT 92–100
[2020-08-19] MEDS: Acetaminophen 325 MG TABLET 650 MG PO (00:19)
[2020-08-19] MEDS: Enoxaparin Sodium 40 MG/0.4 ML SYRINGE SUBCUT ×2 (00:19→22:17)
[2020-08-19] MEDS: 0.9 % Sodium Chloride Flush 3 ML SYRINGE IVFLUSH ×3 (01:14→16:33)
[2020-08-19 05:39] LABS: Hematocrit 35.5 % (37-47); Hemoglobin 11.5 g/dl (12.0-16.0); Imm Gran Abs Auto 0.01 X10*3/uL (0.00-0.03); Imm Gran Pct Auto 0.2 % (0.0-0.4); Lymphocytes Percent Auto 21.9 % (20-40); MANUAL DIFF FLAG SCAN; Mean Corpuscular HGB Conc 32.4 g/dl (31.0-35.0); Mean Corpuscular Hemoglobin 27.4 pg (27.0-33.0); Mean Corpuscular Volume 84.7 fL (80-98); Mean Platelet Volume 10.7 fL (9.4-12.3); Monocytes Absolute Auto 0.1 X10*3/uL (0.1-1.2); Monocytes Percent Auto 3.1 % (2-11); Neutrophils Absolute Auto 3.4 X10*3/uL (2.0-8.3); Neutrophils Percent Auto 74.8 % (45-73); Platelet Count 214 X10*3/uL (160-400); Red Blood Count 4.19 X10*6/uL (4.20-5.50); Red Cell Distribution Width 13.2 % (11.0-16.0); SCAN SMEAR FLAG 1; White Blood Count 4.6 X10*3/uL (4.8-10.8)
[2020-08-19 06:15] LABS: Anion Gap 14 (12-20); Blood Urea Nitrogen 16 mg/dL (9-16); Calcium 8.1 mg/dL (8.4-10.2); Carbon Dioxide 23 mmol/L (22-29); Chloride 107 mmol/L (96-108); Creatinine Clr Calc Pharmacy 65.7; Estimated Glomerular Filt Rate > 60; Glucose Random 193 mg/dL (60-115); Potassium 3.8 mmol/l (3.3-5.1); Sodium 140 mmol/L (135-145)
[2020-08-19 06:30] LABS: SLIDE REVIEW VERIFIED
[2020-08-19] MEDS: cefTRIAXone sodium 1 GM in 0.9 % Sodium Chloride 50 ML IV (06:53)
[2020-08-19] MEDS: dexAMETHasone sod phosphate 4 MG/ML VIAL 6 MG IVPUSH (08:13)
--- NOTE | 2020-08-19 11:31 | MHC.CM.PN ---
Attempted to meet with patient in regards to discharge planning. Patient currently sleeping. Reached out to patient's brother, Thang via telephone. Patient's grandson, Prashant Bar spoke to T/W because Thang is currently home with [place] as well. Prashant is trying to care for him. Claudia lives alone on [address]. Thang lives on another floor. Claudia was very weak when she was transported to the hospital. Anticipate STR will be needed at this discharge. Patient will need a physical therapy eval when medically stable. PCP verified as Dr Zachary Guevara. Prashant is not sure if patient has a HCP. IMM explained and left bedside. Continue to monitor for d/c needs.
--- NOTE | 2020-08-19 12:53 | PC.NURSE ---
REPORT GIVEN, PT TO BE TRANSFERRED SHORTLY
--- NOTE | 2020-08-19 15:44 | HO.PM.IMPN ---
Subjective Subjective Date of Service: 08/19/20 Interval History: Patient feels better less short of breath still requiring oxygen, patient recently diagnosed to have COVID-19 infection and urinary tract infection, patient denies fever chills, denies headache, has persistent cough, no chest pain. Review of Systems General no headache , no dizziness no fever chills. CVS no chest pain, no palpitation. Respiratory cough with sputum production, mild shortness of breath, no respiratory distress. Gastrointestinal no nausea,no vomiting, no abdominal pain Physical Exam Vital Signs: Vital Signs: Last Vital Signs Temp 98.0 F 08/19/20 15:23 Pulse 62 08/19/20 15:23 Resp 18 08/19/20 15:23 BP 119/48 L 08/19/20 15: Pulse Ox 94 08/19/20 15:23 Body Mass Index 32.1 General no acute distress. Neck supple no JVD. CVS regular rate rhythm, Respiratory bilateral expiratory rhonchi, no respiratory distress Gastrointestinal abdomen soft, nontender, bowel sounds audible, no guarding , no rigidity. Extremities no clubbing cyanosis or edema. Neuro nonfocal,speech clear. Skin no rash Objective Data Current Medications Generic Name Dose Route Start Last Admin Trade Name Freq PRN Reason Stop Dose Admin Acetaminophen 650 mg 08/18/20 23:17 Acetaminophen 325 Mg Tablet PO Q6H PRN Pain, Mild (Pain Scale 1-3) Dexamethasone Sodium Phosphate 6 mg 08/19/20 09:00 08/19/20 08:13 Dexamethasone Sod Phosphate 4 Mg/Ml Vial IVPUSH 6 mg DAILY KEN Administration Docusate Sodium 100 mg 08/18/20 23:17 Docusate Sodium 100 Mg Capsule PO DAILY PRN Constipation Enoxaparin Sodium 40 mg 08/18/20 23:17 08/19/20 00:19 Enoxaparin Sodium 40 Mg/0.4 Ml Syringe SUBCUT 40 mg Q24H KEN Administration Ceftriaxone Sodium 1 gm/ 50 mls @ 100 mls/hr 08/19/20 06:00 08/19/20 07:31 Sodium Chloride IV Infused Q24H KEN Infusion Ondansetron HCl 4 mg 08/18/20 23:17 Ondansetron Hcl 4 Mg/2 Ml Vial IVPUSH Q8H PRN Nausea and Vomiting Sodium Chloride 3 ml 08/19/20 00:00 08/19/20 08:13 0.9 % Sodium Chloride Flush 3 Ml Syringe IVFLUSH 3 ml QSHIFT KNE Administration Labs CBC & Chem 7: 08/19/20 05:33 08/19/20 05:33 Assessment and Plan (1) Respiratory failure with hypoxia: Status: Acute (2) UTI (urinary tract infection): Status: Acute (3) Sepsis: Status: Acute (4) Pneumonia due to COVID-19 virus: Status: Acute (5) COVID-19: Status: Acute (6) AMBRIZ (nonalcoholic steatohepatitis): Status: Acute (7) Pure hypercholesterolemia: Status: Acute Assessment and Plan: 62-year-old female presents to the hospital with worsening symptoms of COVID-19 infection # Sepsis secondary to COVID-19 pneumonia tachypnea, fever,on admission, no leukocytosis, mild leukopenia, no lactic acid elevation, procalcitonin low therefore unlikely to be bacterial therefore will hold antibiotics Continue IV Decadron 6 mg daily given hypoxia,wean oxygen gradually close clinical follow-up, follow blood cultures COVID-19 positive 08/[address] demonstrates bilateral infiltrates suggestive of COVID-19, LDH 390, troponin 55.8/52.9 remains flat, D-dimer 342 Add cough syrup, encourage incentive spirometry out of bed to chair as tolerated recommend to change position in bed frequently. # UTI - presented on 08/16 with urinary tract symptoms found to have UTI/acute cystitis, sent home on cefpodoxime Urine culture grew mixed bacterial yamileth agree contamination,on iv ceftriaxone follow blood culture if negative will discontinue antibiotics # acute hypoxic respiratory failure - secondary to COVID-19 continue oxygen supplement, monitor respiratory status closely DVT prophylaxis: Lovenox
[2020-08-19] MEDS: guaiFENesin DM 200/20/10 ML 10 ML SYRUP PO ×2 (16:33→20:00)
[2020-08-20] MEDS: 0.9 % Sodium Chloride Flush 3 ML SYRINGE IVFLUSH ×3 (00:03→15:39)
[2020-08-20 03:23] VITALS: BP 134/69; PULSE 76; RESP 20; TEMP 37; O2SAT 94
[2020-08-20] MEDS: guaiFENesin DM 200/20/10 ML 10 ML SYRUP PO ×4 (03:27→21:24)
[2020-08-20] MEDS: cefTRIAXone sodium 1 GM in 0.9 % Sodium Chloride 50 ML IV (05:01)
[2020-08-20 07:59] VITALS: BP 149/73; PULSE 65; RESP 17; TEMP 36.2; O2SAT 93
[2020-08-20] MEDS: dexAMETHasone sod phosphate 4 MG/ML VIAL 6 MG IVPUSH (08:16)
--- NOTE | 2020-08-20 11:23 | HO.PM.IMPN ---
Subjective Subjective Date of Service: 08/20/20 Interval History: Patient being followed for hypoxic respiratory failure due to COVID-19 patient continued to feel weak, short of breath requiring 2.5 L of oxygen at present, no acute issues overnight. Review of Systems General generalized weakness, fatigue, no headache , no dizziness no fever chills. CVS no chest pain, no palpitation. Respiratory cough with sputum production, mild shortness of breath, no respiratory distress. Gastrointestinal no nausea,no vomiting, no abdominal pain Physical Exam Vital Signs: Vital Signs: Last Vital Signs Temp 97.2 F 08/20/20 07:59 Pulse 65 08/20/20 07:59 Resp 17 08/20/20 07:59 BP 149/73 H 08/20/20 07:59 Pulse Ox 93 08/20/20 07:59 Body Mass Index 32.1 General no acute distress, appears ill. Neck supple no JVD. CVS regular rate rhythm, Respiratory diminished, with coarse breath sounds, no respiratory distress Gastrointestinal abdomen soft, nontender, bowel sounds audible, no guarding , no rigidity. Extremities no clubbing cyanosis or edema. Neuro nonfocal,speech clear. Skin no rash Objective Data Current Medications Generic Name Dose Route Start Last Admin Trade Name Freq PRN Reason Stop Dose Admin Acetaminophen 650 mg 08/18/20 23:17 Acetaminophen 325 Mg Tablet PO Q6H PRN Pain, Mild (Pain Scale 1-3) Dexamethasone Sodium Phosphate 6 mg 08/19/20 09:00 08/20/20 08:16 Dexamethasone Sod Phosphate 4 Mg/Ml Vial IVPUSH 6 mg DAILY KEN Administration Docusate Sodium 100 mg 08/18/20 23:17 Docusate Sodium 100 Mg Capsule PO DAILY PRN Constipation Enoxaparin Sodium 40 mg 08/18/20 23:17 08/19/20 22:17 Enoxaparin Sodium 40 Mg/0.4 Ml Syringe SUBCUT 40 mg Q24H KEN Administration Guaifenesin/Dextromethorphan 10 ml 08/19/20 16:00 08/20/20 08:16 Guaifenesin Dm 200/20/10 Ml 10 Ml Syrup PO 10 ml Q6H KEN Administration Ceftriaxone Sodium 1 gm/ 50 mls @ 100 mls/hr 08/19/20 06:00 08/20/20 05:36 Sodium Chloride IV Infused Q24H KEN Infusion Ondansetron HCl 4 mg 08/18/20 23:17 Ondansetron Hcl 4 Mg/2 Ml Vial IVPUSH Q8H PRN Nausea and Vomiting Sodium Chloride 3 ml 08/19/20 00:00 08/20/20 08:16 0.9 % Sodium Chloride Flush 3 Ml Syringe IVFLUSH 3 ml QSHIFT KEN Administration Labs CBC & Chem 7: 08/19/20 05:33 08/19/20 05:33 Microbiology Microbiology Results: Microbiology 08/19/20 05:33 Blood - Venous Blood Culture - Preliminary No growth after 24 hours. 08/19/20 05:33 Blood - Venous Blood Culture - Preliminary No growth after 24 hours. 08/18/20 19:44 Blood - Venous Blood Culture - Preliminary No growth after 24 hours. 08/18/20 19:35 Blood - Venous Blood Culture - Preliminary No growth after 24 hours. Assessment and Plan (1) Respiratory failure with hypoxia: Status: Acute (2) UTI (urinary tract infection): Status: Acute (3) Sepsis: Status: Acute (4) Pneumonia due to COVID-19 virus: Status: Acute (5) COVID-19: Status: Acute (6) AMBRIZ (nonalcoholic steatohepatitis): Status: Acute (7) Pure hypercholesterolemia: Status: Acute Assessment and Plan: 62-year-old female presents to the hospital with worsening symptoms of COVID-19 infection # Sepsis secondary to COVID-19 pneumonia Patient feels better since admission but still weak and shortness of breath with activity tachypnea, fever,on admission resolved, Continue IV Decadron 6 mg 10/14 given hypoxia,wean oxygen gradually not on home oxygen, close clinical follow-up, negative blood cultures COVID-19 positive 08/[address] demonstrates bilateral infiltrates suggestive of COVID-19, LDH 390, troponin 55.8/52.9 remains flat, D-dimer 342, low procalcitonin encourage incentive spirometry , out of bed to chair as tolerated recommend to change position in bed frequently. Spoke with and informed about progress # UTI - presented on 08/16 with urinary tract symptoms found to have UTI/acute cystitis, sent home on cefpodoxime Urine culture grew mixed bacterial yamileth likely contamination,on iv ceftriaxone , blood cultures negative will discontinue antibiotic # acute hypoxic respiratory failure - secondary to COVID-19 continue oxygen supplement, monitor respiratory status closely DVT prophylaxis: Lovenox
[2020-08-20 11:44] VITALS: BP 127/60; PULSE 63; RESP 25; TEMP 36.9; O2SAT 94
[2020-08-20 12:20] VITALS: BMI 32.1
--- NOTE | 2020-08-20 13:05 | MHC.CM.PN ---
Pt remains in the [facility] unit with COVID - weak and on 2.5 liters of O2. Pt may require STR prior to return to home. Discussed PT eval with MD at rounds. Order to be placed when pt is more medically stable and able to participate in assessment. D/C plan TBD: home with [facility] [employer] and RN visits vs STR.
[2020-08-20 15:50] VITALS: BP 155/69; PULSE 73; RESP 26; TEMP 36.2; O2SAT 91
[2020-08-20 19:19] VITALS: BP 132/61; PULSE 65; RESP 22; TEMP 37.1; O2SAT 92
[2020-08-20] MEDS: Enoxaparin Sodium 40 MG/0.4 ML SYRINGE SUBCUT (21:24)
[2020-08-20] MEDS: Acetaminophen 325 MG TABLET 650 MG PO (21:24)
[2020-08-21] VITALS (8 sets, daily range): BP systolic 102–157; BP diastolic 52–83; PULSE 47–64; RESP 14–26; TEMP 36.1–36.6; O2SAT 92–96
[2020-08-21] MEDS: 0.9 % Sodium Chloride Flush 3 ML SYRINGE IVFLUSH ×4 (00:07→19:41)
[2020-08-21] MEDS: guaiFENesin DM 200/20/10 ML 10 ML SYRUP PO ×4 (04:14→19:40)
[2020-08-21 06:46] LABS: MANUAL DIFF FLAG NO
[2020-08-21 07:17] LABS: Basophils Percent Auto 0.1 % (0-2); Hematocrit 34.3 % (37-47); Imm Gran Abs Auto 0.05 X10*3/uL (0.00-0.03); Imm Gran Pct Auto 0.6 % (0.0-0.4); Lymphocytes Absolute Auto 1.5 X10*3/uL (1.2-4.9); Lymphocytes Percent Auto 17.9 % (20-40); Mean Corpuscular HGB Conc 32.1 g/dl (31.0-35.0); Mean Corpuscular Volume 84.3 fL (80-98); Mean Platelet Volume 11.1 fL (9.4-12.3); Monocytes Absolute Auto 0.8 X10*3/uL (0.1-1.2); Monocytes Percent Auto 9.5 % (2-11); Neutrophils Percent Auto 71.9 % (45-73); Platelet Count 293 X10*3/uL (160-400); Red Blood Count 4.07 X10*6/uL (4.20-5.50); Red Cell Distribution Width 13.1 % (11.0-16.0); White Blood Count 8.4 X10*3/uL (4.8-10.8)
[2020-08-21 07:18] LABS: Anion Gap 14 (12-20); Blood Urea Nitrogen 24 mg/dL (9-16); Calcium 8.3 mg/dL (8.4-10.2); Carbon Dioxide 22 mmol/L (22-29); Chloride 111 mmol/L (96-108); Creatinine Clr Calc Pharmacy 68.3; Estimated Glomerular Filt Rate > 60; Glucose Random 172 mg/dL (60-115); Potassium 3.8 mmol/l (3.3-5.1); Sodium 143 mmol/L (135-145)
[2020-08-21] MEDS: dexAMETHasone sod phosphate 4 MG/ML VIAL 6 MG IVPUSH (08:59)
--- NOTE | 2020-08-21 13:02 | PC.NURSE ---
Pt is up to chair, had difficulty following directions to use incentive spirometer. Reinforced directions, had pt practice. She continues to make poor effort with device. Will continue to reeducate, reinforce and monitor
--- NOTE | 2020-08-21 13:19 | HO.PM.IMPN ---
Subjective Subjective Date of Service: 08/21/20 Interval History: Patient seen and examined at bedside patient reported feeling weak and short of breath Review of Systems General generalized weakness, fatigue, no headache , no dizziness no fever chills. CVS no chest pain, no palpitation. Respiratory cough with sputum production, mild shortness of breath, no respiratory distress. Gastrointestinal no nausea,no vomiting, no abdominal pain Physical Exam Vital Signs: Vital Signs: Last Vital Signs Temp 96.9 F 08/21/20 11:51 Pulse 64 08/21/20 11:51 Resp 17 08/21/20 11:51 BP 102/63 08/21/20 11:51 Pulse Ox 94 08/21/20 11:51 Body Mass Index 32.1 Const: General: cooperative, no acute distress, ill appearing and tired appearing Orientation/consciousness: patient oriented x3 Eyes: General: appearance normal, both eyes and all related structures Resp: Other: Tachypneic Effort & Inspection: normal respiratory effort Auscultation: rhonchi Cardio: Rate: regular rate Rhythm: regular rhythm GI: Palpation (GI): Soft to palpation Auscultation: normal bowel sounds Skin: General skin exam: no rashes or lesions noted Neuro: General: patient oriented x3 Cognition (Neuro): normal cognition Extrem: General: Yes normal to inspection and Yes no pedal edema Objective Data Current Medications Generic Name Dose Route Start Last Admin Trade Name Freq PRN Reason Stop Dose Admin Acetaminophen 650 mg 08/18/20 23:17 08/20/20 21:24 Acetaminophen 325 Mg Tablet PO 650 mg Q6H PRN Administration Pain, Mild (Pain Scale 1-3) Dexamethasone Sodium Phosphate 6 mg 08/19/20 09:00 08/21/20 08:59 Dexamethasone Sod Phosphate 4 Mg/Ml Vial IVPUSH 6 mg DAILY KEN Administration Docusate Sodium 100 mg 08/18/20 23:17 Docusate Sodium 100 Mg Capsule PO DAILY PRN Constipation Enoxaparin Sodium 40 mg 08/18/20 23:17 08/20/20 21:24 Enoxaparin Sodium 40 Mg/0.4 Ml Syringe SUBCUT 40 mg Q24H KEN Administration Guaifenesin/Dextromethorphan 10 ml 08/19/20 16:00 08/21/20 11:10 Guaifenesin Dm 200/20/10 Ml 10 Ml Syrup PO 10 ml Q6H KEN Administration Ondansetron HCl 4 mg 08/18/20 23:17 Ondansetron Hcl 4 Mg/2 Ml Vial IVPUSH Q8H PRN Nausea and Vomiting Sodium Chloride 3 ml 08/19/20 00:00 08/21/20 08:59 0.9 % Sodium Chloride Flush 3 Ml Syringe IVFLUSH 3 ml QSHIFT KEN Administration Labs CBC & Chem 7: 08/21/20 06:37 08/21/20 06:37 Microbiology Microbiology Results: Microbiology 08/19/20 05:33 Blood - Venous Blood Culture - Preliminary No growth after 48 hours. 08/19/20 05:33 Blood - Venous Blood Culture - Preliminary No growth after 48 hours. 08/18/20 19:44 Blood - Venous Blood Culture - Preliminary No growth after 48 hours. 08/18/20 19:35 Blood - Venous Blood Culture - Preliminary No growth after 48 hours. Assessment and Plan (1) Respiratory failure with hypoxia: Status: Acute (2) UTI (urinary tract infection): Status: Acute (3) Sepsis: Status: Acute (4) Pneumonia due to COVID-19 virus: Status: Acute (5) COVID-19: Status: Acute (6) AMBRIZ (nonalcoholic steatohepatitis): Status: Acute (7) Pure hypercholesterolemia: Status: Acute Assessment and Plan: 62-year-old female presents to the hospital with worsening symptoms of COVID-19 infection Sepsis secondary to COVID-19 pneumonia Patient reported weakness and shortness of breath with activity Continue IV Decadron 6 mg 11/14 given hypoxia,wean oxygen gradually not on home oxygen, close clinical follow-up, negative blood cultures COVID-19 positive 08/[address] demonstrates bilateral infiltrates suggestive of COVID-19, LDH 390, troponin 55.8/52.9 remains flat, D-dimer 342, low procalcitonin Encourage incentive spirometry , out of bed to chair as tolerated recommend to change position in bed frequently. UTI - presented on 08/16 with urinary tract symptoms found to have UTI/acute cystitis, sent home on cefpodoxime Urine culture grew mixed bacterial yamileth likely contamination,on iv ceftriaxone , blood cultures negative antibiotic discontinued Acute hypoxic respiratory failure Secondary to COVID-19 continue oxygen supplement, currently requiring 3-4 L of oxygen DVT prophylaxis: Lovenox
[2020-08-21] MEDS: Enoxaparin Sodium 40 MG/0.4 ML SYRINGE SUBCUT (19:40)
[2020-08-22] VITALS (7 sets, daily range): BP systolic 122–167; BP diastolic 42–86; PULSE 47–84; RESP 14–22; TEMP 36.4–37.1; O2SAT 94–98
--- NOTE | 2020-08-22 00:15 | PC.NURSE ---
Patients heart rate has noted to be kyrie in the 50's and occasionally 40's since admission. At around 0000, the patients heart rate dropped to a rate of 38-39. Upon assessment patient was asymptomatic and resting comfortably. Hospitalist was made aware of patients decrease in heart rate and no further orders placed.
--- NOTE | 2020-08-22 07:41 | PC.NURSE ---
worked with pt on incentive spirometry. She was able to return demonstrate proper use of device and has done 5 rounds, able to get voulme of 750ml on device and oxygen saturation of 97. will continue to encourage and supervise use.
[2020-08-22] MEDS: 0.9 % Sodium Chloride Flush 3 ML SYRINGE IVFLUSH ×3 (07:43→19:53)
[2020-08-22] MEDS: guaiFENesin DM 200/20/10 ML 10 ML SYRUP PO ×3 (11:15→19:50)
--- NOTE | 2020-08-22 11:42 | P.PNIM_ITS ---
Subjective Subjective Date of Service: 08/22/20 Interval History: Patient seen and examined at bedside patient reported feeling weak and short of breath little improved Review of Systems General generalized weakness, fatigue, no headache , no dizziness no fever chills. CVS no chest pain, no palpitation. Respiratory cough with sputum production, mild shortness of breath, no respiratory distress. Gastrointestinal no nausea,no vomiting, no abdominal pain Physical Exam Vital Signs: Vital Signs: Last Vital Signs Temp 98.3 F 08/22/20 07:36 Pulse 55 08/22/20 07:36 Resp 22 H 08/22/20 07:36 BP 133/72 08/22/20 07:36 Pulse Ox 95 08/22/20 03:08 Body Mass Index 32.1 Const: General: cooperative, no acute distress, ill appearing and tired appearing Orientation/consciousness: patient oriented x3 Eyes: General: appearance normal, both eyes and all related structures Resp: Other: Tachypneic Effort & Inspection: normal respiratory effort Auscultation: rhonchi Cardio: Rate: regular rate Rhythm: regular rhythm GI: Palpation (GI): Soft to palpation Auscultation: normal bowel sounds Skin: General skin exam: no rashes or lesions noted Neuro: General: patient oriented x3 Cognition (Neuro): normal cognition Extrem: General: Yes normal to inspection and Yes no pedal edema Objective Data Current Medications Generic Name Dose Route Start Last Admin Trade Name Freq PRN Reason Stop Dose Admin Acetaminophen 650 mg 08/18/20 23:17 08/20/20 21:24 Acetaminophen 325 Mg Tablet PO 650 mg Q6H PRN Administration Pain, Mild (Pain Scale 1-3) Dexamethasone Sodium Phosphate 6 mg 08/23/20 09:00 Dexamethasone Sod Phosphate/Pf 10 Mg/Ml Vial IVPUSH DAILY KEN Docusate Sodium 100 mg 08/18/20 23:17 Docusate Sodium 100 Mg Capsule PO DAILY PRN Constipation Enoxaparin Sodium 40 mg 08/18/20 23:17 08/21/20 19:40 Enoxaparin Sodium 40 Mg/0.4 Ml Syringe SUBCUT 40 mg Q24H KEN Administration Guaifenesin/Dextromethorphan 10 ml 08/19/20 16:00 08/22/20 11:15 Guaifenesin Dm 200/20/10 Ml 10 Ml Syrup PO 10 ml Q6H KEN Administration Ondansetron HCl 4 mg 08/18/20 23:17 Ondansetron Hcl 4 Mg/2 Ml Vial IVPUSH Q8H PRN Nausea and Vomiting Sodium Chloride 3 ml 08/19/20 00:00 08/22/20 07:43 0.9 % Sodium Chloride Flush 3 Ml Syringe IVFLUSH 3 ml QSHIFT KEN Administration Labs CBC & Chem 7: 08/21/20 06:37 08/21/20 06:37 Microbiology Microbiology Results: Microbiology 08/19/20 05:33 Blood - Venous Blood Culture - Preliminary No growth after 48 hours. 08/19/20 05:33 Blood - Venous Blood Culture - Preliminary No growth after 48 hours. 08/18/20 19:44 Blood - Venous Blood Culture - Preliminary No growth after 48 hours. 08/18/20 19:35 Blood - Venous Blood Culture - Preliminary No growth after 48 hours. Assessment and Plan (1) Respiratory failure with hypoxia: Status: Acute (2) UTI (urinary tract infection): Status: Acute (3) Sepsis: Status: Acute (4) Pneumonia due to COVID-19 virus: Status: Acute (5) COVID-19: Status: Acute (6) AMBRIZ (nonalcoholic steatohepatitis): Status: Acute (7) Pure hypercholesterolemia: Status: Acute Assessment and Plan: 62-year-old female presents to the hospital with worsening symptoms of COVID-19 infection Sepsis secondary to COVID-19 pneumonia Patient reported weakness and shortness of breath with activity Continue IV Decadron 6 mg 11/14 given hypoxia,wean oxygen gradually not on home oxygen, close clinical follow-up, negative blood cultures COVID-19 positive 08/[address] demonstrates bilateral infiltrates suggestive of COVID-19, LDH 390, troponin 55.8/52.9 remains flat, D-dimer 342, low procalci tonin Encourage incentive spirometry , out of bed to chair as tolerated recommend to change position in bed frequently. UTI - presented on 08/16 with urinary tract symptoms found to have UTI/acute cystitis, sent home on cefpodoxime Urine culture grew mixed bacterial yamileth likely contamination,on iv ceftriaxone , blood cultures negative antibiotic discontinued Acute hypoxic respiratory failure Secondary to COVID-19 continue oxygen supplement, currently requiring 3-4 L of oxygen Continue aggressive incentive spirometry DVT prophylaxis: Lovenox Likely discharge tomorrow if improved further
[2020-08-22] MEDS: Docusate Sodium 100 MG CAPSULE PO (18:16)
[2020-08-22] MEDS: Enoxaparin Sodium 40 MG/0.4 ML SYRINGE SUBCUT (19:51)
[2020-08-23 02:55] VITALS: BP 141/71; PULSE 63; RESP 20; TEMP 36.6; O2SAT 93
[2020-08-23] MEDS: guaiFENesin DM 200/20/10 ML 10 ML SYRUP PO ×2 (03:06→09:30)
[2020-08-23 08:00] VITALS: BP 121/69; PULSE 63; RESP 16; TEMP 36.4; O2SAT 93
--- NOTE | 2020-08-23 08:42 | MHC.CM.PN ---
dc plan is home c mix chemist and vna - rn visits vs. str pending a PT eval. cm to cont to follow.
[2020-08-23] MEDS: 0.9 % Sodium Chloride Flush 3 ML SYRINGE IVFLUSH (09:30)
--- NOTE | 2020-08-23 10:44 | PM.DS ---
DS: Providers Provider Date of Service: 08/24/20 Date of admission: 08/18/20 23:17 Primary care physician: Unknown Physician DS: Diagnosis Discharge Diagnosis (1) Respiratory failure with hypoxia: Status: Resolved (2) UTI (urinary tract infection): Status: Resolved (3) Sepsis: Status: Resolved (4) Pneumonia due to COVID-19 virus: Status: Resolved (5) COVID-19: Status: Resolved (6) AMBRIZ (nonalcoholic steatohepatitis): Status: Acute (7) Pure hypercholesterolemia: Status: Acute DS: Medications Discharge Medications Home Medications: Home Medications Medication Instructions Recorded Confirmed calcium carbonate-vitamin D3 1 tab PO DAILY 08/19/20 08/19/20 [Calcium 600 + D(3)] Previous Rx's Medication Instructions Recorded diclofenac sodium 50 mg 50 mg PO TID 90 Days #270 tab 05/26/20 tablet,delayed release venlafaxine 37.5 mg 37.5 mg PO BEDTIME 90 Days #90 cap 06/07/20 capsule,extended release 24 hr nystatin 100,000 unit/gram topical 1 appl TOPICAL BID 14 Days #30 g 08/14/20 ointment cefpodoxime 100 mg PO BID #14 tab 08/16/20 DS: Summary Hospital Course Hospital Course: HPI 70-year-old female with past medical history of AMBRIZ, hypercholesterolemia, depression who presents to the hospital with complaints of worsening shortness of breath. Patient is Turkmen-speaking, no academic program specialist on site and therefore history is obtained mostly from staff and EMR. It appears the patient was diagnosed with COVID-19 on recent visit to ED new 110, returns today stating that her symptoms have worsened including shortness of breath, coughing, and sputum production. She also had nausea vomiting complain of urinary symptoms. She was satting in the high 90s and therefore was sent home on p.o. antibiotics for UTI and was told to follow-up with her symptoms worsened. She returns today stating worsening shortness of breath and cough and overall feeling worse. Patient found to be satting 88% on room air. Vitals on arrival are significant for temp of a 100.2?, heart rate of 76, respiratory rate of 20, blood pressure 117/56, satting 88% on room air, currently on 2 L satting 97% Labs are significant for WBC count 7.5, hemoglobin of 11.7, hematocrit of 36.5, PT of 14, INR 1.2, lactic acid of 1.4, high sensitivity troponin of 55 which trended down to 52.9, denies any chest pain. Procalcitonin of 0.[address] shows bilateral extensive ill-defined patchy opacities consistent with COVID infection Hospital course 70-year-old female admitted with COVID pneumonia and acute hypoxic respiratory failure patient was started on dexamethasone and supportive management and oxygen supplemental, patient's symptoms improved slowly patient was weaned down to room air and was saturating well, patient was evaluated for home oxygen and patient did not qualify for home oxygen, patient was stable and discharged home. Time Spent with Patient Time attestation: Total time spent providing and/or coordinating discharge services: Discharge coordination time: Greater than 30 minutes Physical Exam Vital Signs: Vital Signs: Last Vital Signs Temp 97.6 F 08/23/20 08:00 Pulse 63 08/23/20 08:00 Resp 16 08/23/20 08:00 BP 121/69 08/23/20 08:00 Pulse Ox 93 08/23/20 08:00 Body Mass Index 32.1 DS: Data Data Completed and Pending Labs on day of discharge: Laboratory Tests 08/18/20 08/18/20 08/18/20 19:33 19:33 19:33 WBC 7.5 RBC 4.30 Hgb 11.7 L Hct 36.5 L MCV 84.9 MCH 27.2 MCHC 32.1 RDW 13.3 Plt Count 216 MPV 10.8 Immature Gran % (Auto) 0.3 Neut % (Auto) 58.7 Lymph % (Auto) 31.1 [place] % (Auto) 9.8 Eos % (Auto) 0.0 Baso % (Auto) 0.1 Lymph # (Auto) 2.3 [place] # (Auto) 0.7 Eos # (Auto) 0.0 Baso # (Auto) 0.0 Abs Immat Gran (auto) 0.02 Absolute Neuts (auto) 4.4 Absolute Nucleated RBC 0.000 Nucleated RBC % (auto) 0.0 Smear Tech's Comments PT 14.0 H INR 1.2 H APTT 28.1 D-Dimer 342 Sodium 142 Potassium 3.7 Chloride 107 Carbon Dioxide 24 Anion Gap 15 BUN 14 Creatinine 0.84 Estim Creat Clear Calc 60.2 Estimated GFR > 60 Random Glucose 125 H Lactic Acid Calcium 8.2 L Lactate Dehydrogenase 390 H Troponin I High Sens Procalcitonin 08/18/20 08/18/20 08/18/20 19:33 19:33 19:50 WBC RBC Hgb Hct MCV MCH MCHC RDW Plt Count MPV Immature Gran % (Auto) Neut % (Auto) Lymph % (Auto) Jess[place] % (Auto) Eos % (Auto) Baso % (Auto) Lymph # (Auto) [place] # (Auto) Eos # (Auto) Baso # (Auto) Abs Immat Gran (auto) Absolute Neuts (auto) Absolute Nucleated RBC Nucleated RBC % (auto) Smear Tech's Comments PT INR APTT D-Dimer Sodium Potassium Chloride Carbon Dioxide Anion Gap BUN Creatinine Estim Creat Clear Calc Estimated GFR Random Glucose Lactic Acid 1.4 Calcium Lactate Dehydrogenase Troponin I High Sens 55.8 H Procalcitonin 0.04 08/18/20 08/19/20 08/19/20 22:17 05:33 05:33 WBC 4.6 L RBC 4.19 L Hgb 11.5 L Hct 35.5 L MCV 84.7 MCH 27.4 MCHC 32.4 RDW 13.2 Plt Count 214 MPV 10.7 Immature Gran % (Auto) 0.2 Neut % (Auto) 74.8 H Lymph % (Auto) 21.9 Jess[place] % (Auto) 3.1 Eos % (Auto) 0.0 Baso % (Auto) 0.0 Lymph # (Auto) 1.0 L [place] # (Auto) 0.1 Eos # (Auto) 0.0 Baso # (Auto) 0.0 Abs Immat Gran (auto) 0.01 Absolute Neuts (auto) 3.4 Absolute Nucleated RBC 0.000 Nucleated RBC % (auto) 0.0 Smear Tech's Comments VERIFIED PT INR APTT D-Dimer Sodium 140 Potassium 3.8 Chloride 107 Carbon Dioxide 23 Anion Gap 14 BUN 16 Creatinine 0.77 Estim Creat Clear Calc 65.7 Estimated GFR > 60 Random Glucose 193 H D Lactic Acid Calcium 8.1 L Lactate Dehydrogenase Troponin I High Sens 52.9 H Procalcitonin 08/21/20 08/21/20 06:37 06:37 WBC 8.4 RBC 4.07 L Hgb 11.0 L Hct 34.3 L MCV 84.3 MCH 27.0 MCHC 32.1 RDW 13.1 Plt Count 293 D MPV 11.1 Immature Gran % (Auto) 0.6 H Neut % (Auto) 71.9 Lymph % (Auto) 17.9 L [place] % (Auto) 9.5 Eos % (Auto) 0.0 Baso % (Auto) 0.1 Lymph # (Auto) 1.5 [place] # (Auto) 0.8 Eos # (Auto) 0.0 Baso # (Auto) 0.0 Abs Immat Gran (auto) 0.05 H Absolute Neuts (auto) 6.0 Absolute Nucleated RBC 0.000 Nucleated RBC % (auto) 0.0 Smear Tech's Comments PT INR APTT D-Dimer Sodium 143 Potassium 3.8 Chloride 111 H Carbon Dioxide 22 Anion Gap 14 BUN 24 H Creatinine 0.74 Estim Creat Clear Calc 68.3 Estimated GFR > 60 Random Glucose 172 H Lactic Acid Calcium 8.3 L Lactate Dehydrogenase Troponin I High Sens Procalcitonin Preliminary micro results at discharge 08/19/20 05:33 Blood Culture - Preliminary Blood - Venous No growth after 48 hours. 08/19/20 05:33 Blood Culture - Preliminary Blood - Venous No growth after 48 hours. 08/18/20 19:44 Blood Culture - Preliminary Blood - Venous No growth after 48 hours. 08/18/20 19:35 Blood Culture - Preliminary Blood - Venous No growth after 48 hours. Discharge Plan Discharge Anticipated Discharge Date/Time: 08/23/20 10:10 Patient Disposition: Home, Self-Care Referrals: Physician,Unknown [Primary Care Provider] - Discharge Medications: New dexamethasone 6 mg tablet 6 mg PO DAILY Qty: 4 RF: 0 Continued venlafaxine 37.5 mg capsule,extended release 24hr 37.5 mg PO BEDTIME 90 Days Qty: 90 RF: 3 cefpodoxime 100 mg tablet 100 mg PO BID Qty: 14 RF: 0 calcium carbonate-vitamin D3 [Calcium 600 + D(3)] 600 mg(1,500mg) -200 unit Tablet 1 tab PO DAILY RF: 0 diclofenac sodium 50 mg tablet,delayed release (DR/EC) 50 mg PO TID 90 Days Qty: 270 RF: 2 nystatin 100,000 unit/gram ointment 1 appl topical BID 14 Days Qty: 30 RF: 0 Discharge Orders: Discharge Order (Routine); Ordered 08/23/20 Ordered By: Jose M Allen Diet: advance to usual diet Activity on Discharge: As tolerated Discharge Date/Time: 08/23/20 13:39 Visit Report Forms: Patient Portal Discharge page Care Plan Goals: treat covid Health Concerns: covid pneumonia Plan of Treatment: po steroids
[2020-08-23 11:39] VITALS: PULSE 765; PULSE 86; PULSE 90; O2SAT 90; O2SAT 91; O2SAT 92
[2020-08-23 12:00] VITALS: BP 111/58; PULSE 61; RESP 18; TEMP 36.6; O2SAT 96
== END 2020-08-23 13:39 | disposition home or self-care (01) | DRG 871 ==
LOC: HO.ED 21:57 → HO.EDOVER 23:36 → HO.ISO 08-19 12:35
PROVIDERS: Hospitalist; Admitting Provider Internal Medicine; Emergency Provider Internal Medicine; PCP Internal Medicine; Visit Provider Internal Medicine
DX: A41.9 Sepsis, unspecified organism (principal); U07.1 COVID-19; J12.82 Pneumonia due to coronavirus disease 2019; J96.01 Acute respiratory failure with hypoxia; N39.0 Urinary tract infection, site not specified; R65.20 Severe sepsis without septic shock; K75.81 Nonalcoholic steatohepatitis (NASH); E78.00 Pure hypercholesterolemia, unspecified; F32.9 Major depressive disorder, single episode, unspecified; Z88.5 Allergy status to narcotic agent; Z88.6 Allergy status to analgesic agent; Z79.899 Other long term (current) drug therapy
CPT/HCPCS: 0241U; 11104; 36415; 71045; 71250; 80048; 80076; 81001; 83605; 83615; 83880; 84145; 84484; 85025; 85379; 85610; 85730; 87040; 87086; 93005; 96361; 96365; 96374; 96375; 97162; 99284; 99285; J0696; J1100; J1650; J2405

== ENCOUNTER 2020-11-09 10:25 | Outpatient (REF) | payer MEDICARE, SELFPAY ==
[2020-11-09 11:38] LABS: MANUAL DIFF FLAG NO
[2020-11-09 11:47] LABS: Basophils Percent Auto 0.6 % (0-2); Eosinophils Absolute Auto 0.1 X10*3/uL (0.0-0.4); Eosinophils Percent Auto 1.3 % (0-4); Hemoglobin 13.1 g/dl (12.0-16.0); Imm Gran Abs Auto 0.02 X10*3/uL (0.00-0.03); Imm Gran Pct Auto 0.3 % (0.0-0.4); Lymphocytes Absolute Auto 3.2 X10*3/uL (1.2-4.9); Lymphocytes Percent Auto 45.3 % (20-40); Mean Corpuscular HGB Conc 32.8 g/dl (31.0-35.0); Mean Corpuscular Hemoglobin 28.1 pg (27.0-33.0); Mean Corpuscular Volume 85.8 fL (80-98); Mean Platelet Volume 11.1 fL (9.4-12.3); Monocytes Absolute Auto 0.5 X10*3/uL (0.1-1.2); Monocytes Percent Auto 7.7 % (2-11); Neutrophils Absolute Auto 3.1 X10*3/uL (2.0-8.3); Neutrophils Percent Auto 44.8 % (45-73); Platelet Count 272 X10*3/uL (160-400); Red Blood Count 4.66 X10*6/uL (4.20-5.50); Red Cell Distribution Width 12.8 % (11.0-16.0)
[2020-11-09 12:24] LABS: Alanine Aminotransferase 28 U/L (0-31); Albumin Level 4.2 g/dL (3.5-5.0); Alkaline Phosphatase 94 U/L (39-117); Anion Gap 14 (12-20); Aspartate Amino Transferase 25 U/L (5-31); Bilirubin Total 0.7 mg/dL (0.0-1.0); Blood Urea Nitrogen 19 mg/dL (9-16); Calcium 9.6 mg/dL (8.4-10.2); Carbon Dioxide 22 mmol/L (22-29); Chloride 107 mmol/L (96-108); Cholesterol 185 mg/dL; Estimated Glomerular Filt Rate > 60; Glucose Fasting 111 mg/dL (60-99); HDL Cholesterol 54 mg/dL; LDL Cholesterol Calculated 101 mg/dl; Potassium 4.2 mmol/L (3.3-5.1); Sodium 139 mmol/L (135-145); Total Protein 7.6 g/dL (6.5-8.0); Triglycerides 153 mg/dL
== END 2020-11-09 10:26 | disposition home or self-care (01) ==
LOC: HO.LAB 10:25
PROVIDERS: PCP Internal Medicine; Visit Provider Internal Medicine
DX: R73.02 Impaired glucose tolerance (oral) (principal); E78.5 Hyperlipidemia, unspecified; D64.9 Anemia, unspecified; M25.519 Pain in unspecified shoulder
CPT/HCPCS: 36415; 80053; 80061; 85025

== ENCOUNTER 2020-11-13 10:52 | Outpatient (REF) | payer MEDICARE, SELFPAY ==
--- NOTE | ~2020-11-13 | MM_ITS ---
EXAMINATION: MM SCREENING DIGITAL BREAST TOMOSYNTHESIS, BILATERAL CLINICAL INFORMATION: Screening. Asymptomatic. The lifetime risk of breast cancer based on the Tyrer-Cuzick Model is 3%. COMPARISON: Mammography: 08/14/2019, 05/15/2018, 04/21/2017 TECHNIQUE: Digital breast tomosynthesis is performed in both the craniocaudal and mediolateral oblique views along with computer-aided detection (CAD). Synthesized 2D images are generated from the tomosynthesis. FINDINGS: There are scattered areas of fibroglandular density (ACR BI-RADS breast composition Category b). There are no significant masses, abnormal calcifications, or other abnormalities. Parenchymal pattern is similar to prior studies. No significant changes. MM/MM tomosynthesis screening BI IMPRESSION: No mammographic evidence of malignancy. ASSESSMENT: BI-RADS 1: Negative RECOMMENDATION: Routine annual mammography screening. This patient's information was entered into a reminder system with a target due date for their next mammogram.
== END 2020-11-13 10:53 | disposition home or self-care (01) ==
LOC: HO.MAMMO 10:52
PROVIDERS: Visit Provider Internal Medicine
DX: Z12.31 Encounter for screening mammogram for malignant neoplasm of breast (principal)
CPT/HCPCS: 77063; 77067

== ENCOUNTER 2020-12-11 08:35 | Outpatient (REF) | payer MEDICARE, SELFPAY ==
--- NOTE | ~2020-12-11 | MM_ITS ---
EXAMINATION: BONE DENSITOMETRY CLINICAL INDICATION: Other specified personal risk factors. Screening for osteoporosis. COMPARISON: Previous BD dated 12/18/2012 and baseline BD dated 09/12/2006. TECHNIQUE: Using a [employer]boundWriter DXA System (software version: 13.1) manufactured by [employer], dual-energy x-ray absorptiometry was performed of the lumbar spine and left hip. The images are of good technical quality. Summary results are attached. FINDINGS: AP SPINE L1-L3 (excluding L4): The data of L1-L4 has been changed to exclude the L4 vertebral body, because degenerative changes at this level may cause overestimation of lumbar spine density. Current: BMD 1.145 g/cm2, Z-score 1.1, T-score -0.2, normal, 1.6% increase from previous, 2.7% decrease from baseline (<5% change is not significant). Prior: BMD 1.127 g/cm2. Baseline: BMD 1.177 g/cm2. LEFT FEMUR, NECK: Current: BMD 0.835 g/cm2, Z-score -0.1, T-score -1.5, osteopenia. Prior: BMD 0.945 g/cm2. Baseline: BMD 0.941 g/cm2. LEFT FEMUR, TOTAL: Current: BMD 0.865 g/cm2, Z-score 0.0, T-score -1.1, osteopenia, 7.8% decrease from previous, 18.1% decrease from baseline (<5% change is not significant). Prior: BMD 0.938 g/cm2. Baseline: BMD 1.056 g/cm2. IDENTIFIED RISK FACTORS: Early menopause, secondary osteoporosis, rheumatoid arthritis. HISTORY OF FRACTURE: None listed. MEDICATIONS: Calcium supplements or multivitamin. MM/XR DEXA axial skeleton IMPRESSION: 1. DIAGNOSIS: Osteopenia based on the lowest T-score value of -1.5 in the femoral neck applying World Health Organization criteria. 2. 10-YEAR FRACTURE RISK PREDICTION, FRAX: Major osteoporotic fracture (clinical spine, forearm, hip or shoulder) 6.7%. Hip fracture 0.9%. 3. Treatment Recommendations: NOF guidelines recommend consideration for treatment in postmenopausal women and men age 50 and older presenting with the following: -A hip or vertebral (clinical or morphometric) fracture. -T-score less than or equal to -2.5 at the femoral neck or spine after appropriate evaluation to exclude secondary causes. -Low bone mass at the hip or spine and a 10-year fracture probability by FRAX of greater than or equal to 3% for hip fracture or greater than or equal to 20% for major osteoporotic fracture based on the [place] adapted WHO algorithm. 4. Other Recommendations: All treatment decisions require clinical judgment and consideration of individual patient factors, including patient preferences, comorbidities, previous drug use, risk factors not captured in the FRAX model (e.g. frailty, falls, vitamin D deficiency, increased bone turnover, interval significant decline in bone density) and possible under or overestimation of fracture risk by FRAX. Additional medical evaluation for secondary cause of low bone mineral density may be appropriate. FUTURE SCAN RECOMMENDATION: People with diagnosed cases of osteoporosis or at high risk for fracture should have regular bone mineral density tests. For patients eligible for Medicare, routine testing is allowed once every 2 years. The testing frequency can be increased to one year for patients who have rapidly progressing disease, those who are receiving or discontinuing medical therapy to restore bone mass, or have additional risk factors.
== END 2020-12-11 08:36 | disposition home or self-care (01) ==
LOC: HO.MAMMO 08:35
PROVIDERS: PCP Internal Medicine; Visit Provider Obstetrics & Gynecology
DX: Z13.820 Encounter for screening for osteoporosis (principal); M85.80 Other specified disorders of bone density and structure, unspecified site; M06.9 Rheumatoid arthritis, unspecified; Z78.0 Asymptomatic menopausal state; Z91.89 Other specified personal risk factors, not elsewhere classified; Z79.899 Other long term (current) drug therapy
CPT/HCPCS: 77080

== ENCOUNTER 2020-12-23 11:00 | Outpatient (RCR) | payer MEDICARE, SELFPAY ==
[2020-11-10 11:01] VITALS: BP 138/74
--- NOTE | 2020-11-10 12:52 | MHC.PT.EP ---
[facility] [place] Office [place] Office [place] Office [address] Shavonne Sullivan [address] [phone] F: [phone] F: [phone] F: [phone] F: [phone] Physical Therapy Plan of Care Date of Evaluation: 11/10/20 Date of Surgery: N/A Diagnosis: Unilateral Primary Osteoarthritis Knees Assessment: Claudia is a 70-year-old female presenting to physical therapy with a diagnosis of BL knee osteoarthritis. She demonstrates impaired BL LE strength, BL knee ROM, impaired gait mechanics, and impaired posture. Claudia would benefit from skilled physical therapy to address the aforementioned impairments and increase her tolerance to sitting, standing, walking, squatting, dressing, and bathing as needed for ADLs and IADLs. Claudia is motivated to participate in physical therapy to reduce her pain and return to her PLOF. Frequency and Duration: The patient will be seen 2 visits per week for 6 weeks Short Term Goals: -Pt will reports <2/10 pain at rest to allow her to sleep through the night without pain within 3 weeks. -Pt will be independent with HEP to allow her to progress towards functional goals and increase independence with ADLs and IADLs within 3 weeks. Senior Living Goals: -Pt will demonstrate >110 degrees of B Knee Flexion in order for her to be able to get into the tub within 6 weeks. -Pt will be able to dress lower body with less than 20% help from her within 6 weeks. -Pt will be independent with HEPs for symptom management and maintenance following discharge in 6 weeks. Treatment Plan: Modalities to reduce pain, spasms and effusion. Manual therapy to restore motion and function. Therapeutic exercise to improve strength and flexibility. Neuromuscular re-education for posture and balance. Therapeutic activities to return to functional activities of daily living. Electronically signed by: Komal Truong PT, DPT Please sign and return to therapist. Thank you for your referral.
--- NOTE | 2020-12-23 12:21 | MHC.PT.DC ---
[facility] [place] Office [place] Office [place] Office [address] Shavonne Sullivan [address] [phone] F: [phone] F: [phone] F: [phone] F: [phone] Physical Therapy Discharge Report Diagnosis: Unilateral Primary Osteoarthritis Knees Date of Surgery: N/A Date of Evaluation: 11/10/20 Date of Discharge: 12/23/20 Treatments to Date: 12 Cancellations to Date: 0 No Shows to Date: 0 Discharge Status: Improved Function Independent with HEP Discharge Summary: 12/23/20- Claudia arrived stating she feels good in her knees but has pain in R shoulder for which she would coming in as a new eval in January. She has completed 12 PT visits and shown improved function, met STG, LTG and is independent with all HEPs. Due to this Claudia was d/c from therapy. She was in agreement with the plan. Today's session was focused on reviewing all HEPs. Standing exercises were trailed. They were discontinued due to increased knee pain with standing exercises. She was advised to perform OKC exercises only as HEP. Pt distributed updated HEP and TB. Electronically signed by: Komal Truong, PT, DPT Please sign and return to therapist. Thank you for your referral.
== END 2020-12-23 12:23 | disposition other institution (70) ==
LOC: HO.PT 11:00
PROVIDERS: PCP Internal Medicine; Visit Provider Internal Medicine
DX: M17.10 Unilateral primary osteoarthritis, unspecified knee (principal)
CPT/HCPCS: 97110; 97140; 97161; 97530

== ENCOUNTER 2021-02-11 11:00 | Outpatient (RCR) | payer MEDICARE, SELFPAY ==
--- NOTE | 2021-01-12 11:58 | MHC.PT.EP ---
[facility] [place] Office [place] Office [place] Office [address] [phone] F: [phone] F: [phone] F: [phone] F: [phone] Physical Therapy Plan of Care Date of Evaluation: Date of Surgery: NA Diagnosis: bilateral shoulder pain Assessment: The patient arrived reporting generalized shoulder pain. She demonstrates decreased ROM, strength, poor sitting and sleeping posture and generally poor activity tolerance. She would benefit from general shoulder and scapular strengthening, postural education, and general exercise to help with activity tolerance. She was educated on use of lumbar roll and to avoid recliner use for extended periods of time to improve spine support. Frequency and Duration: The patient will be seen 2x/week x 4 weeks Short Term Goals: . Pt to be able to report 50% improvement in functional reaching. - Pt to be able to report 50% less pain with getting dressed. Custodial Goals: weeks - The patient to have greater than 160 degrees of flexion and abduction to show improved functional ROM. 4 weeks ? The patient to have 5/5 strength with flexion and abduction to demonstrate functional strength 4 weeks ? The patient to be able to return to all functional reaching, self care ADL's without any limitation from pain or loss of ROM. Treatment Plan: Modalities to reduce pain, spasms and effusion. Manual therapy to restore motion and function. Therapeutic exercise to improve strength and flexibility. Neuromuscular re-education for posture and balance. Therapeutic activities to return to functional activities of daily living. Electronically signed by: Sharee Johns PT DPT Please sign and return to therapist. Thank you for your referral.
== END 2021-03-08 08:40 | disposition home or self-care (01) ==
LOC: HO.PT 11:00
PROVIDERS: PCP Internal Medicine; Visit Provider Internal Medicine
DX: M25.511 Pain in right shoulder (principal); M25.512 Pain in left shoulder
CPT/HCPCS: 97110; 97112; 97140; 97162

== ENCOUNTER → 2021-02-16 11:34 | Outpatient (BNVA) | payer MEDICARE, SELFPAY | PROVIDERS: PCP Internal Medicine; Visit Provider Obstetrics & Gynecology | DX: M85.80 Other specified disorders of bone density and structure, unspecified site (principal) | CPT/HCPCS: Q3014 ==

== ENCOUNTER 2021-04-14 13:06 | Emergency (ER) | payer MEDICARE, SELFPAY ==
[2021-04-14 13:24] VITALS: BP 146/65; PULSE 68; RESP 16; TEMP 36.3; O2SAT 98; BMI 31.7
--- NOTE | 2021-04-14 15:08 | ED.BACK ---
HPI - Back Pain/Injury General Chief Complaint: Back Pain/Injury Stated Complaint: BODY PAIN Time Seen by Provider: 04/14/21 13:58 Source: patient Mode of arrival: ambulatory Limitations: no limitations History of Present Illness HPI Narrative: 71 y/o female with history of osteoarthritis, AMBRIZ, HLD, obesity, depression, chronic joint pain who presents to the ER with acute on chronic pain in her joints as well as well as lower back pain. 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 She has allergies to multiple pain medications and is limited on what she can take. She has had joint injections before with adverse side effects. She denies any new injury to her shoulders or knees. No numbness, tingling, weakness or incontinence. MD elicited complaint: back pain and other (multiple joint aches) Pertinent past history: prior back pain Onset (ago): day(s) (3) Timing: progressively worsening Severity: moderate Similar Symptoms Previously: Yes Quality: aching and spasming Location: right lower back and left lower back Radiation: none Exacerbating factors: movement and lifting Relieving factors: none Context: turning/twisting Associated symptoms: denies other symptoms Treatments prior to arrival: acetaminophen Work related injury: Yes Related Data Previous Rx's Medication Instructions Recorded calcium carbonate 600 mg (1,500 1 tab PO DAILY 90 Days #90 tab 02/18/21 mg)-vitamin D3 200 unit tablet (Calcium 600 + D(3)) cyclobenzaprine 5 mg tablet 5 mg PO TID PRN #14 tab 04/14/21 Allergies Allergy/AdvReac Type Severity Reaction Status Date / Time lisinopril [LISINOPRIL] Allergy Intermediate SWELLING Verified 02/18/21 09:53 morphine [Morphine] Allergy Mild pruritus Verified 02/18/21 09:53 amitriptyline AdvReac Intermediate dizziness Verified 02/18/21 09:53 celecoxib [From Celebrex] AdvReac Intermediate Dizziness Verified 02/18/21 09:53 codeine [Tylenol-Codeine] AdvReac Intermediate dizziness Verified 02/18/21 09:53 ibuprofen [IBUPROFEN] AdvReac Intermediate DIZZY Verified 02/18/21 09:53 oxycodone [Percocet] AdvReac Intermediate stomach Verified 02/18/21 09:53 upset, headaches tramadol [TRAMADOL] AdvReac Intermediate DIZZY, Verified 02/18/21 09:53 dizziness Review of Systems Review of Systems: Constitutional: No Fever, No Chills ENT/Mouth: No sore throat, No Rhinorrhea, No Swallowing Difficulty Cardiovascular: No Chest Pain, No SOB Respiratory: No Cough, No Sputum Gastrointestinal: No Nausea, No Vomiting, No Diarrhea, No abdominal Pain Genitourinary: No Dysuria, No Urinary Frequency, No Hematuria Musculoskeletal: + joint pain, + Myalgias Skin: No Skin Lesions, No rash Neuro: No Weakness, No Numbness, No Dizziness, No Headache Psych: No Anxiety/Panic, No Depression Heme/Lymph: No Bruising, No Lymphadenopathy PMFSH Past Medical History Medical History Impaired glucose tolerance Knee osteoarthritis Mild depression AMBRIZ (nonalcoholic steatohepatitis) Obese Pure hypercholesterolemia Shoulder pain Surgical History History of arthroscopy of right knee History of section History of cholecystectomy History of hemorrhoidectomy Family History Family History Father Lung cancer Mother No problems noted. Social History Social History Household Members: Spouse Housing: House Do you presently have visiting nurse or other home services: No Alcohol intake: never Patient Tobacco Use Status: Never used Tobacco Tobacco use type: Cigarette e-Cigarette/Vaping Use: Never Used Second Hand Smoke Exposure: No Advance Directives: Yes Advance Directives Information Provided: Yes Advance Directives on File: No service: No Current occupational status: retired Sexual orientation: Straight/Heterosexual Gender identity: Female Physical Exam Vital Signs: Vital Signs: Last Vital Signs Temp 97.4 F 04/14/21 13:24 Pulse 68 04/14/21 13:24 Resp 16 04/14/21 13:24 BP 146/65 H 04/14/21 13:24 Pulse Ox 98 04/14/21 13:24 Body Mass Index 31.7 Appearance: Alert. Oriented X3. No acute distress. HEENT: Normal inspection Neck: Normal inspection. Neck supple. CVS: Normal heart rate and rhythm. Pulses normal. Respiratory: No respiratory distress. Breath sounds normal. Abdomen: Soft and nontender. +BS x4 Skin: Skin warm and dry. Normal skin color. Normal skin turgor. No rashes. Extremities: No lower extremity edema. Normal inspection and palpation of bilateral knees. Tender bilateral shoulder joints anteriorly and posteriorly without swelling or effusion Neuro: Oriented X 3. No motor deficit. No sensory deficit. Ambulates with steady gait Course Course Course Narrative: 71 y/o female presenting wtih acute on chronic joint pains. She has not called her PCP yet and is not due to see her until next year. We discussed the importance of close outpatient follow up. Her back pains are somewhat new and exacerbated by twisting episode. No red flag symptoms of LBP. Will give short course of low dose muscle relaxer. She agrees with plan. Referral to Pain Management made. Stable for d/c. Critical Care Time Critical Care Time Critical Care Time: No Discharge Plan Discharge Clinical Impression: Strain of lumbar region Qualifiers: Encounter type: initial encounter Qualified Code(s): S39.012A - Strain of muscle, fascia and tendon of lower back, initial encounter Shoulder pain Qualifiers: Chronicity: chronic Laterality: bilateral Qualified Code(s): M25.511 - Pain in right shoulder Chronic knee pain Qualifiers: Laterality: bilateral Qualified Code(s): M25.561 - Pain in right knee Patient Disposition: Home, Self-Care Instructions: Pain Management in Older Adults (DC), Chronic Pain (ED), Chronic Back Pain (DC) Additional Instructions: Recommend taking Tylenol 975 mg every 6 hours for the next 2 days. Do not exceed 4,000 mg in a 24 hour period. Follow up with Dr. Sharma this week. Recommend following up with Dr. Jo in Pain Management as well given your chronic symptoms. No bending, lifting or twisting. Use ice several times per day for 20 minutes at a time for the next 48 hours and then change to heat. Take medications as prescribed to help with pain and discomfort. If your pain worsens, if you develop new numbness, tingling, weakness, loss of function or incontinence call 911 or come back to the ER right away for evaluation. Prescriptions: New cyclobenzaprine 5 mg tablet 5 mg PO TID PRN (Reason: muscle spasm) Qty: 14 RF: 0 No Action calcium carbonate-vitamin D3 [Calcium 600 + D(3)] 600 mg(1,500mg) -200 unit tablet 1 tab PO DAILY 90 Days Qty: 90 RF: 3 Referrals: Maciej Jo MD [Physician] - 2 days (chronic pain)
== END 2021-04-14 15:34 | disposition home or self-care (01) ==
PROVIDERS: Emergency Provider Emergency Medicine Emergency Medical Services; PCP Internal Medicine
DX: S39.012A Strain of muscle, fascia and tendon of lower back, initial encounter (principal); M25.511 Pain in right shoulder; M25.561 Pain in right knee; F17.210 Nicotine dependence, cigarettes, uncomplicated; X50.0XXA Overexertion from strenuous movement or load, initial encounter; Y93.F2 Activity, caregiving, lifting; Y92.009 Unspecified place in unspecified non-institutional (private) residence as the place of occurrence of the external cause; Y99.9 Unspecified external cause status; Z71.6 Tobacco abuse counseling; Z79.899 Other long term (current) drug therapy
CPT/HCPCS: 99283

== ENCOUNTER 2021-08-17 08:43 | Outpatient (REF) | payer MEDICARE, SELFPAY ==
[2021-08-17 11:23] LABS: Alanine Aminotransferase 44 U/L (0-31); Albumin Level 4.2 g/dL (3.5-5.0); Alkaline Phosphatase 119 U/L (39-117); Anion Gap 12 (12-20); Aspartate Amino Transferase 35 U/L (5-31); Bilirubin Total 0.5 mg/dL (0.0-1.0); Blood Urea Nitrogen 18 mg/dL (9-16); Calcium 9.9 mg/dL (8.4-10.2); Carbon Dioxide 23 mmol/L (22-29); Chloride 110 mmol/L (96-108); Estimated Glomerular Filt Rate > 60; Glucose Fasting 141 mg/dL (60-99); Potassium 4.2 mmol/L (3.3-5.1); Sodium 141 mmol/L (135-145); Total Protein 7.8 g/dL (6.5-8.0)
[2021-08-17 13:38] LABS: CT PCR NOT DETECTED (Not Detect.); NG PCR NOT DETECTED (Not Detect.)
[2021-08-19 22:52] LABS: HPV mRNA E6/E7 rflx Not Detected (Not Detected)
== END 2021-08-17 08:44 | disposition home or self-care (01) ==
LOC: HO.LAB 08:43
PROVIDERS: Absent Provider Internal Medicine; PCP Internal Medicine; Visit Provider Advanced Practice Midwife
DX: Z01.419 Encounter for gynecological examination (general) (routine) without abnormal findings (principal); Z11.51 Encounter for screening for human papillomavirus (HPV); Z20.2 Contact with and (suspected) exposure to infections with a predominantly sexual mode of transmission; M17.10 Unilateral primary osteoarthritis, unspecified knee
CPT/HCPCS: 36415; 80053; 87491; 87591; 87624; 88142

== ENCOUNTER 2021-10-06 12:22 | Outpatient (REF) | payer MEDICARE, SELFPAY ==
[2021-10-06 13:56] LABS: Alanine Aminotransferase 49 U/L (0-31); Albumin Level 4.1 g/dL (3.5-5.0); Alkaline Phosphatase 120 U/L (39-117); Anion Gap 13 (12-20); Aspartate Amino Transferase 41 U/L (5-31); Bilirubin Total 0.7 mg/dL (0.0-1.0); Blood Urea Nitrogen 16 mg/dL (9-16); Calcium 9.9 mg/dL (8.4-10.2); Carbon Dioxide 26 mmol/L (22-29); Chloride 106 mmol/L (96-108); Cholesterol 187 mg/dL; Estimated Glomerular Filt Rate > 60; Glucose Fasting 131 mg/dL (60-99); HDL Cholesterol 49 mg/dL; LDL Cholesterol Calculated 107 mg/dl; Potassium 4.2 mmol/L (3.3-5.1); Sodium 141 mmol/L (135-145); Total Protein 7.5 g/dL (6.5-8.0); Triglycerides 156 mg/dL
== END 2021-10-06 12:23 | disposition home or self-care (01) ==
LOC: HO.LAB 12:22
PROVIDERS: PCP Internal Medicine; Visit Provider Internal Medicine
DX: R73.02 Impaired glucose tolerance (oral) (principal); E78.5 Hyperlipidemia, unspecified
CPT/HCPCS: 36415; 80053; 80061

== ENCOUNTER → 2021-10-27 09:03 | Outpatient (BNVA) | payer MEDICARE, SELFPAY | PROVIDERS: PCP Internal Medicine; Visit Provider Advanced Practice Midwife | DX: N95.1 Menopausal and female climacteric states (principal) | CPT/HCPCS: 99212 ==

== ENCOUNTER 2021-11-15 12:39 | Outpatient (REF) | payer OTHER, SELFPAY ==
--- NOTE | ~2021-11-15 | MM_ITS ---
EXAMINATION: MM SCREENING DIGITAL BREAST TOMOSYNTHESIS, BILATERAL CLINICAL INFORMATION: Screening. Asymptomatic. The lifetime risk of breast cancer based on the Tyrer-Cuzick Model is 3%. COMPARISON: Mammography: 11/13/2020, 08/14/2019, 05/15/2018 TECHNIQUE: Digital breast tomosynthesis is performed in both the craniocaudal and mediolateral oblique views along with computer-aided detection (CAD). Synthesized 2D images are generated from the tomosynthesis. FINDINGS: There are scattered areas of fibroglandular density (ACR BI-RADS breast composition Category b). There are no significant masses, abnormal calcifications, or other abnormalities. There is no significant change from prior exams. No developing density. Skin contours are smooth. MM/MM tomosynthesis screening BI IMPRESSION: No mammographic evidence of malignancy. ASSESSMENT: BI-RADS 1: Negative RECOMMENDATION: Routine annual mammography screening. This patient's information was entered into a reminder system with a target due date for their next mammogram.
== END 2021-11-15 12:40 | disposition home or self-care (01) ==
LOC: HO.MAMMO 12:39
PROVIDERS: PCP Internal Medicine; Visit Provider Advanced Practice Midwife
DX: Z12.31 Encounter for screening mammogram for malignant neoplasm of breast (principal)
CPT/HCPCS: 77063; 77067

== ENCOUNTER 2021-12-24 07:13 | Outpatient (REF) | payer OTHER, SELFPAY ==
--- NOTE | ~2021-12-24 | XR_ITS ---
EXAMINATION: XR KNEE-BILATERAL CLINICAL INFORMATION: Bilateral knee pain. COMPARISON: Radiographs of both knees done on 10/20/2019. TECHNIQUE: AP upright frontal views of both knees and lateral and patellofemoral views of both knees were obtained. FINDINGS: Right knee: Marked decreased joint space, subchondral sclerosis, osteophyte formations, consistent with moderate to severe medial compartmental and patellofemoral compartmental and mild lateral compartmental osteoarthrosis is present, similar to prior study. No evidence of any joint effusion. Left knee: Marked decrease joint space, subchondral sclerosis, osteophyte formation, consistent with moderate to severe medial and patellofemoral compartmental osteoarthrosis is present. Mild osteoarthrosis is noted at the lateral compartment. No evidence of any joint effusion. No evidence of any acute fracture and/or subluxation. Overall, no significant change. XR/XR knee RT 2V IMPRESSION: Persistent stable moderate to severe bilateral medial and patellofemoral compartmental osteoarthrosis and mild osteoarthrosis of the lateral compartment, appears relatively stable since 10/19/2021.
--- NOTE | ~2021-12-24 | XR_ITS ---
EXAMINATION: XR KNEE-BILATERAL CLINICAL INFORMATION: Bilateral knee pain. COMPARISON: Radiographs of both knees done on 10/20/2019. TECHNIQUE: AP upright frontal views of both knees and lateral and patellofemoral views of both knees were obtained. FINDINGS: Right knee: Marked decreased joint space, subchondral sclerosis, osteophyte formations, consistent with moderate to severe medial compartmental and patellofemoral compartmental and mild lateral compartmental osteoarthrosis is present, similar to prior study. No evidence of any joint effusion. Left knee: Marked decrease joint space, subchondral sclerosis, osteophyte formation, consistent with moderate to severe medial and patellofemoral compartmental osteoarthrosis is present. Mild osteoarthrosis is noted at the lateral compartment. No evidence of any joint effusion. No evidence of any acute fracture and/or subluxation. Overall, no significant change. XR/XR knee standing BI IMPRESSION: Persistent stable moderate to severe bilateral medial and patellofemoral compartmental osteoarthrosis and mild osteoarthrosis of the lateral compartment, appears relatively stable since 10/19/2021.
--- NOTE | ~2021-12-24 | XR_ITS ---
EXAMINATION: XR KNEE-BILATERAL CLINICAL INFORMATION: Bilateral knee pain. COMPARISON: Radiographs of both knees done on 10/20/2019. TECHNIQUE: AP upright frontal views of both knees and lateral and patellofemoral views of both knees were obtained. FINDINGS: Right knee: Marked decreased joint space, subchondral sclerosis, osteophyte formations, consistent with moderate to severe medial compartmental and patellofemoral compartmental and mild lateral compartmental osteoarthrosis is present, similar to prior study. No evidence of any joint effusion. Left knee: Marked decrease joint space, subchondral sclerosis, osteophyte formation, consistent with moderate to severe medial and patellofemoral compartmental osteoarthrosis is present. Mild osteoarthrosis is noted at the lateral compartment. No evidence of any joint effusion. No evidence of any acute fracture and/or subluxation. Overall, no significant change. XR/XR knee LT 2V IMPRESSION: Persistent stable moderate to severe bilateral medial and patellofemoral compartmental osteoarthrosis and mild osteoarthrosis of the lateral compartment, appears relatively stable since 10/19/2021.
== END 2021-12-24 07:14 | disposition home or self-care (01) ==
LOC: HO.HOSX 07:13
PROVIDERS: Visit Provider Physician Assistant
DX: M17.0 Bilateral primary osteoarthritis of knee (principal)
CPT/HCPCS: 20610; 73560; 73565; 99202; J1020

== ENCOUNTER 2022-02-15 09:51 | Outpatient (REF) | payer OTHER, SELFPAY ==
[2022-02-15 11:06] LABS: Alanine Aminotransferase 40 U/L (0-31); Albumin Level 4.2 g/dL (3.5-5.0); Alkaline Phosphatase 107 U/L (39-117); Anion Gap 14 (12-20); Aspartate Amino Transferase 34 U/L (5-31); Bilirubin Total 0.7 mg/dL (0.0-1.0); Blood Urea Nitrogen 18 mg/dL (9-16); Calcium 9.3 mg/dL (8.4-10.2); Carbon Dioxide 22 mmol/L (22-29); Chloride 107 mmol/L (96-108); Cholesterol 195 mg/dL; Estimated Glomerular Filt Rate > 60; Glucose Fasting 131 mg/dL (60-99); HDL Cholesterol 51 mg/dL; LDL Cholesterol Calculated 108 mg/dl; Potassium 4.2 mmol/L (3.3-5.1); Sodium 139 mmol/L (135-145); Total Protein 7.5 g/dL (6.5-8.0); Triglycerides 182 mg/dL
[2022-02-15 11:25] LABS: Vitamin D 25-OH Total 31.9 ng/mL (>30)
[2022-02-15 13:56] LABS: Creatinine Urine 231.72 mg/dL; Microalbum/Creatinine Ratio Ur 9.9 ug/mg cr
== END 2022-02-15 09:52 | disposition home or self-care (01) ==
LOC: HO.LAB 09:51
PROVIDERS: PCP Internal Medicine; Visit Provider Internal Medicine
DX: Z00.00 Encounter for general adult medical examination without abnormal findings (principal); E55.9 Vitamin D deficiency, unspecified; M85.89 Other specified disorders of bone density and structure, multiple sites; E11.9 Type 2 diabetes mellitus without complications; E78.5 Hyperlipidemia, unspecified
CPT/HCPCS: 36415; 80053; 80061; 82043; 82306

== ENCOUNTER → 2022-04-01 09:15 | Outpatient (BNVA) | payer OTHER, SELFPAY | PROVIDERS: PCP Internal Medicine; Visit Provider Orthopaedic Surgery | DX: M17.0 Bilateral primary osteoarthritis of knee (principal); E11.9 Type 2 diabetes mellitus without complications | CPT/HCPCS: 20610; 99212; J1100 ==

== ENCOUNTER 2022-04-14 13:10 | Emergency (ER) | payer OTHER, SELFPAY ==
[2022-04-14 13:28] VITALS: BP 160/75; PULSE 92; RESP 16; TEMP 37.3; O2SAT 99; BMI 34.2
[2022-04-14 14:05] LABS: MANUAL DIFF FLAG NO
[2022-04-14 14:07] LABS: Basophils Percent Auto 0.4 % (0-2); Eosinophils Percent Auto 0.4 % (0-4); Hematocrit 36.1 % (37.0-47.0); Hemoglobin 11.9 g/dl (12.0-16.0); Imm Gran Abs Auto 0.03 X10*3/uL (0.00-0.03); Imm Gran Pct Auto 0.3 % (0.0-0.4); Lymphocytes Absolute Auto 1.8 X10*3/uL (1.2-4.9); Lymphocytes Percent Auto 17.8 % (20-40); Mean Corpuscular Hemoglobin 27.9 pg (27.0-33.0); Mean Corpuscular Volume 84.5 fL (80.0-98.0); Mean Platelet Volume 10.6 fL (9.4-12.3); Monocytes Percent Auto 10.5 % (2-11); Neutrophils Percent Auto 70.6 % (45-73); Platelet Count 205 X10*3/uL (160-400); Red Blood Count 4.27 X10*6/uL (4.20-5.50); Red Cell Distribution Width 12.8 % (11.0-16.0); White Blood Count 9.9 X10*3/uL (4.8-10.8)
[2022-04-14 14:23] LABS: Anion Gap 17 (12-20); Blood Urea Nitrogen 12 mg/dL (9-16); Calcium 8.6 mg/dL (8.4-10.2); Carbon Dioxide 22 mmol/L (22-29); Chloride 104 mmol/L (96-108); Estimated Glomerular Filt Rate > 60; Glucose Random 194 mg/dL (60-115); Potassium 3.7 mmol/L (3.3-5.1); Sodium 139 mmol/L (135-145)
== END 2022-04-14 21:24 | disposition left against medical advice (07) ==
PROVIDERS: Emergency Provider Emergency Medicine; PCP Internal Medicine
DX: R50.9 Fever, unspecified (principal); R05.9 Cough, unspecified; Z79.899 Other long term (current) drug therapy
CPT/HCPCS: 36415; 80048; 85025; 99281; 99283

== ENCOUNTER 2022-04-15 11:02 | Outpatient (REF) | payer OTHER, SELFPAY ==
[2022-04-15 11:31] LABS: COVID-19 Test Positive (Negative); IDNOW Serial# 16C4AD1C
== END 2022-04-15 11:03 | disposition home or self-care (01) ==
LOC: HO.LAB 11:02
PROVIDERS: Visit Provider Internal Medicine
DX: Z20.822 Contact with and (suspected) exposure to COVID-19 (principal)
CPT/HCPCS: 87635; C9803

== ENCOUNTER 2022-06-21 12:59 | Outpatient (REF) | payer OTHER, SELFPAY ==
[2022-06-21 14:34] LABS: Creatinine Urine 206.42 mg/dL; Microalbum/Creatinine Ratio Ur 21.8 ug/mg cr
[2022-06-21 14:37] LABS: Alanine Aminotransferase 47 U/L (0-31); Albumin Level 4.1 g/dL (3.5-5.0); Alkaline Phosphatase 129 U/L (39-117); Anion Gap 14 (12-20); Aspartate Amino Transferase 37 U/L (5-31); Bilirubin Total 0.7 mg/dL (0.0-1.0); Blood Urea Nitrogen 16 mg/dL (9-16); Calcium 9.8 mg/dL (8.4-10.2); Carbon Dioxide 25 mmol/L (22-29); Chloride 106 mmol/L (96-108); Cholesterol 166 mg/dL; Estimated Glomerular Filt Rate > 60; Glucose Fasting 115 mg/dL (60-99); HDL Cholesterol 47 mg/dL; LDL Cholesterol Calculated 93 mg/dl; Potassium 4.4 mmol/L (3.3-5.1); Sodium 141 mmol/L (135-145); Total Protein 7.7 g/dL (6.5-8.0); Triglycerides 133 mg/dL
== END 2022-06-21 13:00 | disposition home or self-care (01) ==
LOC: HO.LAB 12:59
PROVIDERS: PCP Internal Medicine; Visit Provider Internal Medicine
DX: E11.9 Type 2 diabetes mellitus without complications (principal); E78.5 Hyperlipidemia, unspecified
CPT/HCPCS: 36415; 80053; 80061; 82043

== ENCOUNTER 2022-12-02 10:59 | Outpatient (REF) | payer OTHER, SELFPAY ==
--- NOTE | ~2022-12-02 | MM_ITS ---
EXAMINATION: MM SCREENING DIGITAL BREAST TOMOSYNTHESIS, BILATERAL CLINICAL INFORMATION: Screening. Asymptomatic. The lifetime risk of breast cancer based on the Tyrer-Cuzick Model is 3%. COMPARISON: Mammography: 11/15/2021, 11/13/2020, 08/14/2019 TECHNIQUE: Digital breast tomosynthesis is performed in both the craniocaudal and mediolateral oblique views along with computer-aided detection (CAD). Synthesized 2D images are generated from the tomosynthesis. FINDINGS: There are scattered areas of fibroglandular density (ACR BI-RADS breast composition Category b). There are no significant masses, abnormal calcifications, or other abnormalities. Parenchymal pattern is similar to prior studies. There is no developing density or architectural abnormality. The axilla and skin contours are unremarkable. No significant changes. MM/MM tomosynthesis screening BI IMPRESSION: No mammographic evidence of malignancy. ASSESSMENT: BI-RADS 1: Negative RECOMMENDATION: Routine annual mammography screening. This patient's information was entered into a reminder system with a target due date for their next mammogram.
== END 2022-12-02 11:00 | disposition home or self-care (01) ==
LOC: HO.MAMMO 10:59
PROVIDERS: PCP Internal Medicine; Visit Provider Advanced Practice Midwife
DX: Z12.31 Encounter for screening mammogram for malignant neoplasm of breast (principal)
CPT/HCPCS: 77063; 77067

== ENCOUNTER 2022-12-12 10:32 | Outpatient (REF) | payer OTHER, SELFPAY ==
--- NOTE | ~2022-12-12 | MM_ITS ---
EXAMINATION: BONE DENSITOMETRY CLINICAL INDICATION: Unspecified menopausal and perimenopausal disorder. COMPARISON: Previous BD dated 12/11/2020 and baseline BD dated 09/12/2006. TECHNIQUE: Using a [employer] DXA system (software version: 14.10) manufactured by [employer], dual-energy x-ray absorptiometry was performed of the lumbar spine and left hip. The images are of good technical quality. Summary results are attached. FINDINGS: AP SPINE L1-L3 (excluding L4): The data of L1-L4 has been changed to exclude the L4 vertebral body, because degenerative changes at this level may cause overestimation of lumbar spine density. Current: BMD 1.190 g/cm2, Z-score 1.5, T-score 0.2, normal, 3.9% increase from previous, 1.1% increase from baseline (<5% change is not significant). Prior: BMD 1.145 g/cm2. Baseline: BMD 1.177 g/cm2. LEFT FEMUR, NECK: Current: BMD 0.801 g/cm2, Z-score -0.2, T-score -1.7, osteopenia. Prior: BMD 0.835 g/cm2. Baseline: BMD 0.941 g/cm2. LEFT FEMUR, TOTAL: Current: BMD 0.855 g/cm2, Z-score 0.0, T-score -1.2, osteopenia, 1.2% decrease from previous, 19.0% decrease from baseline (<5% change is not significant). Prior: BMD 0.865 g/cm2. Baseline: BMD 1.056 g/cm2. IDENTIFIED RISK FACTORS: Early menopause, secondary osteoporosis, hysterectomy. HISTORY OF FRACTURE: None listed. MEDICATIONS: Calcium supplements or multivitamin, vitamin D. MM/XR DEXA axial skeleton IMPRESSION: 1. DIAGNOSIS: Osteopenia based on the lowest T-score value of -1.7 in the femoral neck applying World Health Organization criteria. 2. 10-YEAR FRACTURE RISK PREDICTION, FRAX: Major osteoporotic fracture (clinical spine, forearm, hip or shoulder) 5.7%. Hip fracture 0.9%. 3. Treatment Recommendations: NOF guidelines recommend consideration for treatment in postmenopausal women and men age 50 and older presenting with the following: -A hip or vertebral (clinical or morphometric) fracture. -T-score less than or equal to -2.5 at the femoral neck or spine after appropriate evaluation to exclude secondary causes. -Low bone mass at the hip or spine and a 10-year fracture probability by FRAX of greater than or equal to 3% for hip fracture or greater than or equal to 20% for major osteoporotic fracture based on the [place] adapted WHO algorithm. 4. Other Recommendations: All treatment decisions require clinical judgment and consideration of individual patient factors, including patient preferences, comorbidities, previous drug use, risk factors not captured in the FRAX model (e.g. frailty, falls, vitamin D deficiency, increased bone turnover, interval significant decline in bone density) and possible under or overestimation of fracture risk by FRAX. Additional medical evaluation for secondary cause of low bone mineral density may be appropriate. FUTURE SCAN RECOMMENDATION: People with diagnosed cases of osteoporosis or at high risk for fracture should have regular bone mineral density tests. For patients eligible for Medicare, routine testing is allowed once every 2 years. The testing frequency can be increased to one year for patients who have rapidly progressing disease, those who are receiving or discontinuing medical therapy to restore bone mass, or have additional risk factors.
== END 2022-12-12 10:33 | disposition home or self-care (01) ==
LOC: HO.MAMMO 10:32
PROVIDERS: PCP Internal Medicine; Visit Provider Internal Medicine
DX: Z13.820 Encounter for screening for osteoporosis (principal); Z78.0 Asymptomatic menopausal state
CPT/HCPCS: 77080

== ENCOUNTER 2023-03-22 10:44 | Outpatient (AMB) | payer OTHER, SELFPAY ==
--- NOTE | 2023-03-22 10:59 | A.OFFPC_ITS ---
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 Accompanied by: Self / Same As Patient Allergies lisinopril [LISINOPRIL] Allergy (Intermediate, Verified 03/22/23 11:14) SWELLING morphine [Morphine] Allergy (Mild, Verified 03/22/23 11:14) pruritus amitriptyline Adverse Reaction (Intermediate, Verified 03/22/23 11:14) dizziness celecoxib [From Celebrex] Adverse Reaction (Intermediate, Verified 03/22/23 11:14) Dizziness codeine [Tylenol-Codeine] Adverse Reaction (Intermediate, Verified 03/22/23 11:14) dizziness ibuprofen [IBUPROFEN] Adverse Reaction (Intermediate, Verified 03/22/23 11:14) DIZZY oxycodone [Percocet] Adverse Reaction (Intermediate, Verified 03/22/23 11:14) stomach upset, headaches tramadol [TRAMADOL] Adverse Reaction (Intermediate, Verified 03/22/23 11:14) DIZZY, dizziness Medication List - Last Reconciled 03/22/23 by June Guevara MD [adult diapers pull-ups As directed] blood sugar diagnostic (FreeStyle Lite Strips) Use 1 test strip once a day blood-glucose meter (FreeStyle Lite Meter kit) As directed calcium carbonate-vitamin D3 600 mg-5 mcg (200 unit) (Calcium 600 + D(3)) 1 tab PO DAILY 90 days diclofenac sodium 1% (Arthritis Pain (diclofenac)) 2 grams topical QID PRN 30 days lancets (FreeStyle Lancets) Use 1 lancet once a day losartan 25 mg PO DAILY 90 days metformin 1,000 mg PO BID 90 days rosuvastatin 20 mg PO DAILY 90 days underpads (Certainty Underpads) As directed Tobacco use date assessed: 11/09/22 Fall risk assessment: No Falls in past year Last assessed Fall Risk: 03/22/23 Dental Screening Dental Screen Date: 03/22/23 Did you have a dental visit in the last 12 months?: No Did you have a dental problem in the last 6 months where you did not have access to dental care?: No Was dental information given to patient?: Yes HPI HPI Comments History of Present Illness Details This is a 72-year-old female with diabetes mellitus type 2, hypertension, hyperlipidemia and mild major depression and osteopenia comes today for follow-up on her conditions. A1c slightly elevated and I will add Actos to control her diabetes. Blood pressure borderline normal to elevated and blood pressure will be recheck in 3 weeks by nurse navigator. Lipid panel will be order and her LDL goal should be less than 70. Has mild major depression that has been in remission. Bone density done December 2022 shows osteopenia and her treatment is calcium with vitamin-D which she has been taking it. No chest pain or shortness of breath. [facility] Medical History (Updated 11/09/22 @ 10:55 by June Guevara MD) Diabetes mellitus Knee osteoarthritis Mild depression AMBRIZ (nonalcoholic steatohepatitis) Obese Physical exam Pure hypercholesterolemia Shoulder pain Urge urinary incontinence Surgical History H/O arthroscopy of left knee History of arthroscopy of right knee History of section History of cholecystectomy History of hemorrhoidectomy Family History Father Lung cancer Mother No problems noted. Social History Household Members: Spouse Housing: House Do you presently have visiting nurse or other home services: No Alcohol intake: never Patient Tobacco Use Status: Never used Tobacco e-Cigarette/Vaping Use: Never Used Second Hand Smoke Exposure: No service: No Current occupational status: retired Sexual orientation: Straight/Heterosexual Gender identity: Female Cognitive needs: No Hearing needs: No Vision needs: Yes (reading glasses) Questionnaire Thrive Questionnaire Date Thrive assessed: 11/09/22 MINNIE-7 AMB Questionnaire MINNIE-7 Date MINNIE - 7 assessed: 11/09/22 Source: Developed by Drs. Krish Anderson, Jenae Pelaez, Dwight Johns and colleagues, with an educational deirdre from [employer] Review of Systems Const All systems reviewed & are unremarkable except as noted in HPI and below Eyes Reports no additional complaints, Denies change in vision and Denies other visual disturbances Card Denies chest pain at rest, Denies chest pain with activity, Denies edema, Denies irregular heart rhythm, Denies claudication, Denies dyspnea, Denies dyspnea on exertion, Denies orthopnea, Denies paroxysmal nocturnal dyspnea and Denies slow heart rate Resp Denies cough, Denies dyspnea and Denies dyspnea on exertion GI Denies abdominal pain, Denies change in bowel habits, Denies excessive flatus, Denies nausea and Denies vomiting Denies urinary incontinence, Denies urinary hesitancy and Denies urinary urgency Musc Reports abnormal gait, Denies atrophy, Denies deformity, Reports arthralgias and Reports limited range of motion Skin/Breast Denies bleeding lesions, Denies changing lesions and Denies rash Neuro Reports abnormal gait and Denies lack of coordination Physical exam (Primary Care) Vital Signs: Last Vital Signs Pulse 65 03/22/23 11:00 BP 140/96 H 03/22/23 11:00 Pulse Ox 98 03/22/23 11:00 Oxygen Delivery Method Room Air 03/22/23 11:00 BMI result Body Mass Index 34.8 Tobacco/Smoking Status: Tobacco use Status Tobacco use date assessed 11/09/22 03/22/23 10:59 Patient Tobacco Use Status Never used Tobacco 03/22/23 10:59 Tobacco use type 11/11/21 13:16 e-Cigarette/Vaping Use Never Used 03/22/23 10:59 Thrive Assessment: Date of Thrive Assessment Date Thrive assessed 11/09/22 03/22/23 10:59 Eyes General: appearance normal, both eyes and all related structures Eyelids: Yes eyelids normal Conjunctivae: conjunctivae normal Neck Neck: Yes normal visual inspection and Yes supple Resp Effort & Inspection: normal respiratory effort Auscultation: clear to auscultation bilaterally Cardio Jugular venous distension: no JVD Rate: regular rate Rhythm: regular rhythm Heart sounds: S1 normal heart sound present and S2 normal heart sound present Results AMB Hemoglobin A1c AMB Hemoglobin A1c 7.1 % Last Edit by LINDA Cardenas on 03/22/23 11:24 Assessment and Plan Assessment & Plan (1) Diabetes mellitus: Code(s): E11.9 - Type 2 diabetes mellitus without complications Plan: Continue metformin. Start Actos. A1c goal is equal or less than 7%. (2) Mild depression: Code(s): F32.0 - Major depressive disorder, single episode, mild Plan: In remission. (3) Essential hypertension: Code(s): I10 - Essential (primary) hypertension Plan: Continue losartan. Blood pressure goal is equal or less than 130/80. Recheck blood pressure with nurse navigator in 3 weeks. (4) Hyperlipidemia LDL goal <70: Code(s): E78.5 - Hyperlipidemia, unspecified Plan: Continue statins. LDL goal is less than 70. (5) Osteopenia: Code(s): M85.80 - Other specified disorders of bone density and structure, unspecified site Qualifiers: Osteopenia location: multiple sites Qualified Code(s): M85.89 - Other specified disorders of bone density and structure, multiple sites Plan: Continue calcium with vitamin-D. Repeat bone density 2024. Orders: Orders Lipid Panel Today E78.5 - Hyperlipidemia, unspecified Microalbumin, Random (w Creat) Today E11.9 - Type 2 diabetes mellitus without complications Vitamin D 25-OH Total Today E55.9 - Vitamin D deficiency, unspecified Comprehensive [place]. Panel Fast Today E78.5 - Hyperlipidemia, unspecified AMB Hemoglobin A1c Today E11.9 - Type 2 diabetes mellitus without complications Medications: New doxycycline hyclate 100 mg PO BID 5 days 10 tabs 0RF pioglitazone 15 mg PO DAILY 90 days 90 tabs 1RF E11.9 - Type 2 diabetes mellitus without complications Refilled blood sugar diagnostic (FreeStyle Lite Strips) Use 1 test strip once a day 100 ea 3RF E11.9 - Type 2 diabetes mellitus without complications Coding Level of Care Code Est Pt Level 4 (55844) Diagnoses Diabetes mellitus E11.9 Mild depression F32.0 Essential hypertension I10 Hyperlipidemia LDL goal <70 E78.5 Osteopenia M85.89 Osteopenia location: multiple sites Time Spent (min) 23
[2023-03-22 11:00] VITALS: BP 140/96; PULSE 65; O2SAT 98; BMI 34.8
[2023-03-22 11:30] VITALS: BP 140/90
== END 2023-03-22 11:29 | disposition home or self-care (01) ==
PROVIDERS: Visit Provider Internal Medicine
DX: E11.9 Type 2 diabetes mellitus without complications (principal); F32.0 Major depressive disorder, single episode, mild; I10 Essential (primary) hypertension; E78.5 Hyperlipidemia, unspecified; M85.89 Other specified disorders of bone density and structure, multiple sites
CPT/HCPCS: 83036; 99214

== ENCOUNTER 2023-07-20 10:31 | Outpatient (REF) | payer OTHER, SELFPAY ==
[2023-07-20 11:52] LABS: Alanine Aminotransferase 46 U/L (0-31); Albumin Level 4.1 g/dL (3.5-5.0); Alkaline Phosphatase 112 U/L (39-117); Anion Gap 14 (12-20); Aspartate Amino Transferase 46 U/L (5-31); Bilirubin Total 0.7 mg/dL (0.0-1.0); Blood Urea Nitrogen 15 mg/dL (9-16); Calcium 9.7 mg/dL (8.4-10.2); Carbon Dioxide 23 mmol/L (22-29); Chloride 106 mmol/L (96-108); Cholesterol 183 mg/dL (<200); Estimated Glomerular Filt Rate > 60; Glucose Fasting 155 mg/dL (60-99); HDL Cholesterol 53 mg/dL (>40); LDL Cholesterol Calculated 104 mg/dL (<100); Potassium 3.9 mmol/L (3.3-5.1); Sodium 139 mmol/L (135-145); Total Protein 8.2 g/dL (6.5-8.0); Triglycerides 130 mg/dL (<150)
[2023-07-20 12:08] LABS: Vitamin D 25-OH Total 37.8 ng/mL (>30)
[2023-07-20 13:10] LABS: Microalbum/Creatinine Ratio Ur 39.4 ug/mg cr (<30)
== END 2023-07-20 10:32 | disposition home or self-care (01) ==
LOC: HO.LAB 10:31
PROVIDERS: PCP Internal Medicine; Visit Provider Internal Medicine
DX: E55.9 Vitamin D deficiency, unspecified (principal); I10 Essential (primary) hypertension; E78.5 Hyperlipidemia, unspecified; E11.9 Type 2 diabetes mellitus without complications
CPT/HCPCS: 36415; 80053; 80061; 82043; 82306; 82570

== ENCOUNTER 2023-07-25 12:54 | Outpatient (AMB) | payer OTHER, SELFPAY ==
--- NOTE | 2023-07-25 12:58 | A.OFFPC_ITS ---
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 Accompanied by: Self / Same As Patient Allergies lisinopril [LISINOPRIL] Allergy (Intermediate, Verified 07/25/23 13:19) SWELLING morphine [Morphine] Allergy (Mild, Verified 07/25/23 13:19) pruritus amitriptyline Adverse Reaction (Intermediate, Verified 07/25/23 13:19) dizziness celecoxib [From Celebrex] Adverse Reaction (Intermediate, Verified 07/25/23 13:19) Dizziness codeine [Tylenol-Codeine] Adverse Reaction (Intermediate, Verified 07/25/23 13:19) dizziness ibuprofen [IBUPROFEN] Adverse Reaction (Intermediate, Verified 07/25/23 13:19) DIZZY oxycodone [Percocet] Adverse Reaction (Intermediate, Verified 07/25/23 13:19) stomach upset, headaches tramadol [TRAMADOL] Adverse Reaction (Intermediate, Verified 07/25/23 13:19) DIZZY, dizziness Medication List - Last Reconciled 07/25/23 by June Guevara MD [adult diapers pull-ups As directed] blood sugar diagnostic (FreeStyle Lite Strips) Use 1 test strip once a day blood-glucose meter (FreeStyle Lite Meter kit) As directed calcium carbonate-vitamin D3 600 mg-5 mcg (200 unit) (Calcium 600 + D(3)) 1 tab PO DAILY 90 days diclofenac sodium 1% (Arthritis Pain (diclofenac)) 2 grams topical QID PRN 30 days lancets (FreeStyle Lancets) Use 1 lancet once a day losartan 25 mg PO DAILY 90 days metformin 1,000 mg PO BID 90 days pioglitazone 15 mg PO DAILY 90 days rosuvastatin 20 mg PO DAILY 90 days underpads (Certainty Underpads) As directed Tobacco use date assessed: 11/09/22 Fall risk assessment: No Falls in past year Last assessed Fall Risk: 07/25/23 Dental Screening Dental Screen Date: 07/25/23 Did you have a dental visit in the last 12 months?: Yes Did you have a dental problem in the last 6 months where you did not have access to dental care?: No Was dental information given to patient?: Patient has dentist HPI HPI Comments History of Present Illness Details This is a 73-year-old female with diabetes mellitus type 2, hypertension, hyperlipidemia and osteopenia that comes today for follow-up on her conditions. A1c elevated and I will increase Actos to 30 mg. Blood pr essure stable. LDL not on goal and I will increase statins. Bone density done showing osteopenia and she is on calcium with vitamin-D. No chest pain or shortness of breath. Has urge urinary incontinence and use diapers. No need for gloves or wipes for this matter because she cleans herself. [facility] Medical History (Updated 11/09/22 @ 10:55 by June Guevara MD) Diabetes mellitus Physical exam Urge urinary incontinence Shoulder pain Obese Mild depression Knee osteoarthritis AMBRIZ (nonalcoholic steatohepatitis) Pure hypercholesterolemia Surgical History H/O arthroscopy of left knee History of hemorrhoidectomy History of arthroscopy of right knee History of cholecystectomy History of section Family History Father Lung cancer Mother No problems noted. Social History Household Members: Spouse Housing: House Do you presently have visiting nurse or other home services: No Alcohol intake: never Patient Tobacco Use Status: Never used Tobacco e-Cigarette/Vaping Use: Never Used Second Hand Smoke Exposure: No service: No Current occupational status: retired Sexual orientation: Straight/Heterosexual Gender identity: Female Cognitive needs: No Hearing needs: No Vision needs: Yes (reading glasses) Questionnaire Thrive Questionnaire Date Thrive assessed: 11/09/22 MINNIE-7 AMB Questionnaire MINNIE-7 Date MINNIE - 7 assessed: 11/09/22 Source: Developed by Drs. Krish Anderson, Jenae Pelaez, Dwight Johns and colleagues, with an educational deirdre from [employer]. Review of Systems Const All systems reviewed & are unremarkable except as noted in HPI and below Eyes Reports no additional complaints, Denies change in vision and Denies other visual disturbances Card Denies chest pain at rest, Denies chest pain with activity, Denies edema, Denies irregular heart rhythm, Denies claudication, Denies dyspnea, Denies dyspnea on exertion, Denies orthopnea, Denies paroxysmal nocturnal dyspnea and Denies slow heart rate Resp Denies cough, Denies dyspnea and Denies dyspnea on exertion GI Denies abdominal pain, Denies change in bowel habits, Denies excessive flatus, Denies nausea and Denies vomiting Denies urinary incontinence, Denies urinary hesitancy and Denies urinary urgency Musc Denies abnormal gait, Denies atrophy, Denies deformity and Denies limited range of motion Skin/Breast Denies bleeding lesions, Denies changing lesions and Denies rash Neuro Denies abnormal gait, Denies behavioral changes, Denies confusion and Denies lack of coordination Psych Denies behavioral changes and Denies confusion Physical exam (Primary Care) Vital Signs: Last Vital Signs BP 118/80 07/25/23 13:01 BMI result Body Mass Index 34.5 Tobacco/Smoking Status: Tobacco use Status Tobacco use date assessed 11/09/22 07/25/23 13:00 Patient Tobacco Use Status Never used Tobacco 07/25/23 13:00 Tobacco use type 11/11/21 13:16 e-Cigarette/Vaping Use Never Used 07/25/23 13:00 Thrive Assessment: Date of Thrive Assessment Date Thrive assessed 11/09/22 07/25/23 13:00 Const General: No confusion Orientation/consciousness: patient oriented x3 and No confusion HENMT Head: Yes normal to inspection, Yes normocephalic and Yes atraumatic Ears: external ears normal Eyes General: appearance normal, both eyes and all related structures Eyelids: Yes eyelids normal Conjunctivae: conjunctivae normal Neck Neck: Yes normal visual inspection and Yes supple Resp Effort & Inspection: normal respiratory effort Auscultation: clear to auscultation bilaterally Cardio Jugular venous distension: no JVD Rate: regular rate Rhythm: regular rhythm Heart sounds: S1 normal heart sound present and S2 normal heart sound present GI Inspection: Yes normal to inspection Palpation (GI): Soft to palpation and nontender Auscultation: normal bowel sounds Skin General skin exam: no rashes or lesions noted Neuro General: patient oriented x3, no focal motor deficits and No confusion Extrem General: Yes full ROM Psych Appearance: grossly normal Office Procedures Flu Questionnaire Does the patient have a severe egg allergy?: No Results AMB Hemoglobin A1c AMB Hemoglobin A1c 8.2 % Last Edit by DANIELLE Huggins on 07/25/23 13:0 8 Immunizations flu vacc [id number] 6mos up(PF) 60 mcg(15 mcgx4)/0.5 mL IM syringe Performing Provider: June Guevara MD [facility] Documented (not given) by: DANIELLE Huggins on 07/25/23 13:05 Reason Not Given: Patient Refused Results Reviewed Results Reviewed: Laboratory Last Values Hgb A1c (Clinic) 8.2 % (4.0-6.0) H 07/25/23 12:58 Assessment and Plan Assessment & Plan (1) Diabetes mellitus: Code(s): E11.9 - Type 2 diabetes mellitus without complications Plan: Continue metformin. Increase Actos. A1c goal is equal or less than 7%. (2) Essential hypertension: Code(s): I10 - Essential (primary) hypertension Plan: Continue losartan. Blood pressure goal is equal or less than 130/80. (3) Hyperlipidemia LDL goal <70: Code(s): E78.5 - Hyperlipidemia, unspecified Plan: Continue statins. LDL goal is less than 70. (4) Osteopenia: Code(s): M85.80 - Other specified disorders of bone density and structure, unspecified site Qualifiers: Osteopenia location: multiple sites Qualified Code(s): M85.89 - Other specified disorders of bone density and structure, multiple sites Plan: Continue calcium with vitamin-D. Orders: Orders AMB Hemoglobin A1c Today E11.9 - Type 2 diabetes mellitus without complications Lipid Panel 4 Months E78.5 - Hyperlipidemia, unspecified Microalbumin, Random (w Creat) 4 Months E11.9 - Type 2 diabetes mellitus without complications Vitamin D 25-OH Total 4 Months E55.9 - Vitamin D deficiency, unspecified Influenza [id number] Immunization Today Z23 - Encounter for immunization Comprehensive [place]. Panel Fast 4 Months E78.5 - Hyperlipidemia, unspecified Medications: New pioglitazone 30 mg PO DAILY 90 tabs 1RF 90 days rosuvastatin 40 mg PO DAILY 90 tabs 1RF 90 days Refilled metformin 1,000 mg PO BID 180 tabs 1RF 90 days E11.9 - Type 2 diabetes mellitus without complications blood sugar diagnostic (FreeStyle Lite Strips) Use 1 test strip once a day 100 ea 3RF E11.9 - Type 2 diabetes mellitus without complications lancets (FreeStyle Lancets) Use 1 lancet once a day 100 ea 3RF E11.9 - Type 2 diabetes mellitus without complications [adult diapers pull-ups] As directed 240 ea 11RF N39.41 - Urge incontinence Discontinued rosuvastatin Discontinued Reason: Patient Completed Course 20 mg PO DAILY 90 days 90 tabs 0RF Coding Level of Care Code Est Pt Level 4 (07960) Diagnoses Diabetes mellitus E11.9 Essential hypertension I10 Hyperlipidemia LDL goal <70 E78.5 Osteopenia of multiple sites M85.89 Osteopenia location: multiple sites Time Spent (min) 24
[2023-07-25 13:01] VITALS: BP 118/80; BMI 34.5
== END 2023-07-25 13:26 | disposition home or self-care (01) ==
PROVIDERS: PCP Internal Medicine; Visit Provider Internal Medicine
DX: E11.9 Type 2 diabetes mellitus without complications (principal); I10 Essential (primary) hypertension; E78.5 Hyperlipidemia, unspecified; M85.89 Other specified disorders of bone density and structure, multiple sites
CPT/HCPCS: 83036; 99214

== ENCOUNTER 2023-12-08 09:02 | Outpatient (REF) | payer OTHER, SELFPAY | END 2023-12-08 09:03 | disposition home or self-care (01) | LOC: HO.MAMMO 09:02 | PROVIDERS: PCP Internal Medicine; Visit Provider Internal Medicine | DX: Z12.31 Encounter for screening mammogram for malignant neoplasm of breast (principal) | CPT/HCPCS: 77063; 77067 ==

== ENCOUNTER → 2023-12-08 10:45 | Outpatient (BNV) | payer OTHER, SELFPAY | PROVIDERS: PCP Internal Medicine; Visit Provider Radiology Diagnostic Radiology | DX: Z12.31 Encounter for screening mammogram for malignant neoplasm of breast (principal) | CPT/HCPCS: 77063; 77067 ==

== ENCOUNTER 2024-03-29 11:53 | Outpatient (REF) | payer OTHER, SELFPAY ==
[2024-03-29 13:09] LABS: Alanine Aminotransferase 60 U/L (0-31); Albumin Level 4.1 g/dL (3.5-5.0); Alkaline Phosphatase 118 U/L (39-117); Anion Gap 15 (12-20); Aspartate Amino Transferase 44 U/L (5-31); Bilirubin Total 0.6 mg/dL (0.0-1.0); Blood Urea Nitrogen 15 mg/dL (9-16); Calcium 9.9 mg/dL (8.4-10.2); Carbon Dioxide 20 mmol/L (22-29); Chloride 109 mmol/L (96-108); Cholesterol 181 mg/dL (<200); Estimated Glomerular Filt Rate > 60; Glucose Fasting 180 mg/dL (60-99); HDL Cholesterol 52 mg/dL (>40); LDL Cholesterol Calculated 101 mg/dL (<100); Sodium 140 mmol/L (135-145); Total Protein 7.9 g/dL (6.5-8.0); Triglycerides 144 mg/dL (<150)
[2024-03-29 13:24] LABS: Vitamin D 25-OH Total 36.7 ng/mL (>30)
[2024-03-29 13:32] LABS: Creatinine Urine 222.73 mg/dL; Microalbum/Creatinine Ratio Ur 15.7 ug/mg cr (<30)
== END 2024-03-29 11:54 | disposition home or self-care (01) ==
LOC: HO.LAB 11:53
PROVIDERS: PCP Internal Medicine; Visit Provider Internal Medicine
DX: E55.9 Vitamin D deficiency, unspecified (principal); E11.9 Type 2 diabetes mellitus without complications; I10 Essential (primary) hypertension; E78.5 Hyperlipidemia, unspecified
CPT/HCPCS: 36415; 80053; 80061; 82043; 82306; 82570

== ENCOUNTER 2024-04-03 12:59 | Outpatient (AMB) | payer OTHER, SELFPAY ==
[2024-04-03 13:11] VITALS: BP 120/80; BMI 34.9
--- NOTE | 2024-04-03 13:11 | A.OFFPC_ITS ---
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 Accompanied by: Self / Same As Patient Allergies lisinopril [LISINOPRIL] Allergy (Intermediate, Verified 04/03/24 13:29) SWELLING morphine [Morphine] Allergy (Mild, Verified 04/03/24 13:29) pruritus amitriptyline Adverse Reaction (Intermediate, Verified 04/03/24 13:29) dizziness celecoxib [From Celebrex] Adverse Reaction (Intermediate, Verified 04/03/24 13:29) Dizziness codeine [Tylenol-Codeine] Adverse Reaction (Intermediate, Verified 04/03/24 13:29) dizziness ibuprofen [IBUPROFEN] Adverse Reaction (Intermediate, Verified 04/03/24 13:29) DIZZY oxycodone [Percocet] Adverse Reaction (Intermediate, Verified 04/03/24 13:29) stomach upset, headaches tramadol [TRAMADOL] Adverse Reaction (Intermediate, Verified 04/03/24 13:29) DIZZY, dizziness Medication List - Last Reconciled 04/03/24 by June Guevara MD [adult diapers pull-ups As directed] blood sugar diagnostic (FreeStyle Lite Strips) Use 1 test strip once a day blood-glucose meter (FreeStyle Lite Meter kit) As directed lancets (FreeStyle Lancets) Use 1 lancet once a day losartan 25 mg PO DAILY 90 days metformin 1,000 mg PO BID 90 days pioglitazone 30 mg PO DAILY 90 days rosuvastatin 40 mg PO DAILY 90 days underpads (Certainty Underpads) As directed Tobacco use date assessed: 04/03/24 Fall risk assessment: No Falls in past year Last assessed Fall Risk: 04/03/24 Dental Screening Dental Screen Date: 04/03/24 Did you have a dental visit in the last 12 months?: No Did you have a dental problem in the last 6 months where you did not have access to dental care?: No Was dental information given to patient?: Patient has dentist HPI HPI Comments History of Present Illness Details This is a 73-year-old female with mild depression and diabetes mellitus type 2 that comes for her physical exam. Depression is in remission. A1c elevated and I will add Jardiance. Mammogram done 2023 was normal. Pap smear done 2021 was normal. DEXA scan done 2022 showing osteopenia and she has with calcium with vitamin-D. Colonoscopy done less than 10 years ago and was normal. No chest pain or shortness on breath. [facility] Medical History (Updated 04/03/24 @ 20:01 by June Guevara MD) Diabetes mellitus Physical exam Urge urinary incontinence Shoulder pain Obese Mild depression Knee osteoarthritis AMBRIZ (nonalcoholic steatohepatitis) Pure hypercholesterolemia Surgical History H/O arthroscopy of left knee History of hemorrhoidectomy History of arthroscopy of right knee History of cholecystectomy History of section Family History Father Lung cancer Mother No problems noted. Social History Household Members: Spouse Housing: House Do you presently have visiting nurse or other home services: No Alcohol intake: never Patient Tobacco Use Status: Never used Tobacco e-Cigarette/Vaping Use: Never Used Second Hand Smoke Exposure: No service: No Current occupational status: retired Sexual orientation: Straight/Heterosexual Gender identity: Female Cognitive needs: No Hearing needs: No Vision needs: Yes (reading glasses) Questionnaire PHQ-9 Over the last 2 weeks, how often have you been bothered by any of the following problems? 1. Little interest or pleasure in doing things: not at all 2. Feeling down, depressed, or hopeless: not at all 3. Trouble falling or staying asleep, or sleeping too much: not at all 4. Feeling tired or having little energy: not at all 5. Poor appetite or overeating: not at all 6. Feeling bad about yourself - or that you are a failure or have let yourself or your family down: not at all 7. Trouble concentrating on things, such as reading the newspaper or watching television: not at all 8. Moving or speaking so slowly that other people could have noticed. Or the opposite - being so fidgety or restless that you have been moving around a lot more than usual: not at all 9. Thoughts that you would be better off or of hurting yourself in some way: not at all Total score: 0 Depression Screening Interpretation: Negative Depression Screening Done: Yes 69659 - PHQ-9 Billing: Yes Source: Developed by Drs. Krish Anderson, Jenae Pelaez, Dwight Johns and colleagues, with an educational deirdre from [employer]. Thrive Questionnaire Date Thrive assessed: 11/09/22 I am a: Patient What is your living situation today?: I have a steady place to live Within the past 12 months, did the food you bought not last and you didn't have the money to get more?: I choose not to answer this question Within the past 12 months, did you worry whether your food would run out before you got money to buy more?: I choose not to answer this question Do you have trouble paying for medicines?: No Do you have trouble getting transportation to medical appointments?: No Do you have trouble paying your heating and electricity bill?: No Do you have trouble taking care of your child, family member or friend?: No Do you have trouble with day-to-day activities such as bathing, preparing meals, shopping, managing finances, etc.?: No Are you currently unemployed and looking for a job?: Yes Are you interested in more education?: No Please select the resources that you would like help with: None Currently or been in a relationship where the following occur: No concerns repo rted THRIVE Score: 0 AUDIT C Alcohol Use Questionnaire (AUDIT-C) 1. How often do you have a drink containing alcohol?: Never Total Score: 0 Score Reviewed/Action Taken: No MINNIE-7 AMB Questionnaire MINNIE-7 Date MINNIE - 7 assessed: 11/09/22 Feeling nervous, anxious, or on edge: 0 = Not at all Not being able to stop or control worryin = Not at all Worrying too much about different things: 0 = Not at all Trouble relaxin = Not at all Being so restless that it is hard to sit still: 0 = Not at all Becoming easily annoyed or irritable: 0 = Not at all Feeling afraid as if something awful might happen: 0 = Not at all Total MINNIE-7 score (0-4 normal; 5-9 mild; 10-14 moderate; 15-21 severe): 0 Source: Developed by Drs. Krish Anderson, Jenae Pelaez, Dwight Johns and colleagues, with an educational deirdre from [employer]. MINNIE-7 Assessment Billing MINNIE-7 Assessment Tool: MINNIE-7 Assessment 83718 Review of Systems Const All systems reviewed & are unremarkable except as noted in HPI and below Card Denies chest pain at rest, Denies chest pain with activity, Denies edema, Denies irregular heart rhythm, Denies claudication, Denies dyspnea, Denies dyspnea on exertion, Denies orthopnea, Denies paroxysmal nocturnal dyspnea and Denies slow heart rate Resp Denies cough, Denies dyspnea and Denies dyspnea on exertion GI Denies abdominal pain, Denies change in bowel habits, Denies excessive flatus, Denies nausea and Denies vomiting Denies urinary incontinence, Denies urinary hesitancy and Denies urinary urgency Musc Denies abnormal gait, Denies atrophy, Denies deformity and Denies limited range of motion Skin/Breast Denies bleeding lesions, Denies changing lesions and Denies rash Neuro Denies abnormal gait, Denies behavioral changes and Denies lack of coordination Psych Denies behavioral changes Physical exam (Primary Care) Vital Signs: Last Vital Signs BP 120/80 04/03/24 13:11 BMI result Body Mass Index 34.9 Tobacco/Smoking Status: Tobacco use Status Tobacco use date assessed 04/03/24 04/03/24 13:15 Patient Tobacco Use Status Never used Tobacco 04/03/24 13:15 Tobacco use type 11/11/21 13:16 e-Cigarette/Vaping Use Never Used 04/03/24 13:15 PHQ-9: PHQ-9 Score PHQ-9: Total score 0 04/03/24 13:47 Depression Screening Interpretation: Negative Thrive Assessment: Date of Thrive Assessment Date Thrive assessed 11/09/22 04/03/24 13:15 Currently or been in a relationship where the following occur: No concerns reported HENMT Head: Yes normal to inspection, Yes normocephalic and Yes atraumatic Ears: external ears normal Eyes General: appearance normal, both eyes and all related structures Eyelids: Yes eyelids normal Conjunctivae: conjunctivae normal Neck Neck: Yes normal visual inspection and Yes supple Resp Effort & Inspection: normal respiratory effort Auscultation: clear to auscultation bilaterally Cardio Jugular venous distension: no JVD Rate: regular rate Rhythm: regular rhythm Heart sounds: S1 normal heart sound present and S2 normal heart sound present GI Inspection: Yes normal to inspection Palpation (GI): Soft to palpation and nontender Auscultation: normal bowel sounds Skin General skin exam: no rashes or lesions noted Neuro General: no focal motor deficits Extrem General: Yes full ROM Psych Appearance: grossly normal Results AMB Hemoglobin A1c AMB Hemoglobin A1c 8.3 % Last Edit by DANIELLE Huggins on 04/03/24 13:2 7 Immunizations pneumoc 20-yunier conj-dip cr(PF) 0.5 mL IM syringe Performing Provider: June Guevara MD [facility] Administered by: DANIELLE Huggins on 04/03/24 13:48 Dose Route Admin Location Dispensed Lot Number Expiration Date [employer] 0.5 mL IM Left Deltoid 0.5 mL [id number] 04/07/25 5587-4715-02 [employer] VIS Given Date VIS Provided VIS Publication Date 04/03/24 Single Vaccine 21 Eligibility Eligibility Date Funding Source Not VFC Eligible 04/03/24 Private Results Reviewed Results Reviewed: Laboratory Last Values Hgb A1c (Clinic) 8.3 % (4.0-6.0) H 04/03/24 13:20 Assessment and Plan Assessment & Plan (1) Physical exam: Code(s): Z00.00 - Encounter for general adult medical examination without abnormal fin dings Plan: Repeat in a year. (2) Diabetes mellitus: Code(s): E11.9 - Type 2 diabetes mellitus without complications Plan: Continue pioglitazone and metformin. A1c goal is equal or less than 7%. (3) Mild depression: Code(s): F32.0 - Major depressive disorder, single episode, mild Plan: In remission. Orders: Orders AMB Hemoglobin A1c Today E11.9 - Type 2 diabetes mellitus without complications Pneumococcal 20 Immunization Today Z23 - Encounter for immunization Medications: New ezetimibe 10 mg PO DAILY 90 days 90 tabs 1RF E78.5 - Hyperlipidemia, unspecified empagliflozin (Jardiance) 10 mg PO DAILY 90 days 90 tabs 1RF Refilled 2 losartan 25 mg PO DAILY 90 days 90 tabs 1RF I10 - Essential (primary) hypertension rosuvastatin 40 mg PO DAILY 90 days 90 tabs 1RF pioglitazone 30 mg PO DAILY 90 days 90 tabs 1RF metformin 1,000 mg PO BID 90 days 180 tabs 1RF E11.9 - Type 2 diabetes mellitus without complications Coding Level of Care Code Est Pt Prev Care >65y(55338) Diagnoses Physical exam Z00.00 Diabetes mellitus E11.9 Mild depression F32.0 Additional Codes MINNIE-7 Assessment Billing - MINNIE-7 Assessment Tool: MINNIE-7 Assessment 86223 ([id number]) Time Spent (min) 31
== END 2024-04-03 13:44 | disposition home or self-care (01) ==
PROVIDERS: PCP Internal Medicine; Visit Provider Internal Medicine
DX: Z00.00 Encounter for general adult medical examination without abnormal findings (principal); E11.9 Type 2 diabetes mellitus without complications; F32.0 Major depressive disorder, single episode, mild; Z23 Encounter for immunization
CPT/HCPCS: 83036; 90471; 90677; 99397

== ENCOUNTER 2025-04-09 12:22 | Outpatient (AMB) | payer MEDICARE, MEDICAID, SELFPAY ==
--- NOTE | 2025-04-09 12:44 | A.OFFVIS_ITS ---
Intake Vital Signs 04/09/25 12:46 04/09/25 13:10 Height 4 ft 11 in Weight 178 lb 6 oz BMI 36.0 BP 140/68 H 135/70 Blood Pressure Location Lt brachial Lt brachial Position Sitting Sitting Pulse 64 Pulse Source Pulse Oximeter Temp 97.1 F Temp Source Temporal Artery Scan Pulse Oximetry (%) 97 Oxygen Delivery Method Room Air Intake Visit Reasons: AWV Intake Note: Patient is here for an Annual Wellness Visit. Explosives Detonator Required: Yes Explosives Detonator Language: Marine Diesel Technician Services: Explosives Detonator Present Information Interpreted: non-clinical & clinical Neurocritical Care Physician: Neurocritical Care Physician offered & declined Accompanied by: Self / Same As Patient Allergies lisinopril (LISINOPRIL) Allergy (Intermediate, Verified 04/09/25 13:10) SWELLING morphine (Morphine) Allergy (Mild, Verified 04/09/25 13:10) pruritus amitriptyline Adverse Reaction (Intermediate, Verified 04/09/25 13:10) dizziness celecoxib (From Celebrex) Adverse Reaction (Intermediate, Verified 04/09/25 13:10) Dizziness codeine (Tylenol-Codeine) Adverse Reaction (Intermediate, Verified 04/09/25 13:10) dizziness ibuprofen (IBUPROFEN) Adverse Reaction (Intermediate, Verified 04/09/25 13:10) DIZZY oxycodone (Percocet) Adverse Reaction (Intermediate, Verified 04/09/25 13:10) stomach upset, headaches tramadol (TRAMADOL) Adverse Reaction (Intermediate, Verified 04/09/25 13:10) DIZZY, dizziness Medication List - Last Reconciled 04/09/25 by June Guevara MD [adult diapers pull-ups As directed] blood sugar diagnostic (FreeStyle Lite Strips) Use 1 test strip once a day blood-glucose meter (FreeStyle Lite Meter kit) As directed empagliflozin (Jardiance) 10 mg PO DAILY 90 days ezetimibe 10 mg PO DAILY 90 days lancets (FreeStyle Lancets) Use 1 lancet once a day losartan 25 mg PO DAILY 90 days metformin 1,000 mg PO BID 90 days pioglitazone 30 mg PO DAILY 90 days rosuvastatin 40 mg PO DAILY 90 days underpads (Certainty Underpads) As directed HPI HPI Comments History of Present Illness Details The patient is a 75-year-old female presenting with a Medicare wellness exam. PPP handed to patient. [place] of care reviewed and updated. She has a history of osteopenia, as indicated by a bone density test conducted i n 2022, and requires another test. The patient has diabetes mellitus type 2 with a recent hemoglobin A1c level of 10.1%, indicating poor glycemic control. She is currently prescribed Jardiance 10 mg for diabetes management, although there is uncertainty regarding her adherence to this medication. The patient experiences urinary incontinence and uses diapers for management, although she needs to reorder them. She reports a history of depression and is currently under the care of a mental health provider. Preventative care measures include a colonoscopy performed in 2016 with the next one scheduled for 2026, a pneumonia vaccine received after the age of 65, a mammogram conducted last year, and a bone density test in 2022. Declines Tdap vaccine. [facility] Medical History Diabetes mellitus Physical exam Urge urinary incontinence Shoulder pain Obese Mild depression Knee osteoarthritis AMBRIZ (nonalcoholic steatohepatitis) Pure hypercholesterolemia Surgical History H/O arthroscopy of left knee History of hemorrhoidectomy History of arthroscopy of right knee History of cholecystectomy History of section Family History Father Lung cancer Mother No problems noted. Social History Household Members: Spouse Housing: House Do you presently have visiting nurse or other home services: No Alcohol intake: never Patient Tobacco Use Status: Never used Tobacco e-Cigarette/Vaping Use: Never Used Second Hand Smoke Exposure: No service: No Current occupational status: retired Sexual orientation: Straight/Heterosexual Gender identity: Female Cognitive needs: No Hearing needs: No Vision needs: Yes (reading glasses) Questionnaire Medicare Wellness Checkup [age] What gender do you identify with?: female During the past 4 weeks, how much have you been bothered by emotional problems such as feeling anxious, depressed, irritable, sad or downhearted, and blue?: extremely During the past 4 weeks, has your physical & emotional health limited your social activities with family, friends, neighbors, or groups?: quite a bit During the past 4 weeks, how much bodily pain have you generally had?: severe pain During the past 4 weeks, was someone available to help you if you needed & wanted help?: yes, as much as I wanted Can you get to places out of walking distance without help? (For eg., can you travel alone on buses, taxis or drive your car?): Yes Can you go shopping for groceries or clothes without someone's help?: Yes Can you prepare your own meals?: Yes Can you do your housework without help?: Yes Because of any health problems, do you need the help of another person with your personal care needs such as eating, bathing, dressing or getting around the house?: No Can you handle your own money without help?: Yes During the past 4 weeks, how would you rate your health in general?: poor During the past 4 weeks how have things been going for you?: very bad; could hardly be worse Are you having difficulties driving your car?: no Do you always fasten your seat belt when you are in a car?: yes, usually During past 4 weeks, have you been bothered by the following: never: Falling or dizzy when standing up, Sexual problems?, Trouble eating well?, Teeth or denture problems?, Problems using the telephone? and Tiredness or fatigue? Have you fallen 2 or more times in the past year?: No Are you afraid of falling?: Yes Are you a smoker?: no During the past 4 weeks, how many drinks of wine, beer, or other alcoholic beverages did you have?: no alcohol at all Do you exercise for about 20 minutes 3 or more times a week?: yes, some of the time Have you been given information to help with the following?: yes: Keeping track of your medications? and no: Hazards in your house that might hurt you? How often do you have trouble taking medicines the way you have been told to take them?: I always take medicine as prescribed How confident are you that you can control & manage most of your health problems?: somewhat confident What is your race?: or origin or descent Mini Mental State Exam (MMSE) Orientation What is the (year) (season) (date) (day) (month)?: year, season, date, day and month Where are we (state) (county) (town or city) (hospital) (floor)?: state, county, town or city, hospital/clinic and floor Registration Name of 3 unrelated objects clearly and slowly, then ask patient to repeat all 3 of them. (1st repeat determines score. Make sure they can repeat all three): object 1, object 2 and object 3 Attention & Calculation (CHOOSE ONE) Spell WORLD backwards (DLROW): 3 letters Recall Ask patient to repeat the 3 items from question #3.: object 1, object 2 and object 3 Language Show patient a wristwatch & ask what it is. Repeat for pencil.: watch and pencil Ask the patient to repeat the phrase 'No ifs, ands, or buts' after you.: correct Ask the patient to 'take a piece of paper with their right hand' 'fold paper in half' 'place paper on floor': take paper in right hand, fold paper in half and place paper on floor Print the sentence 'CLOSE YOUR EYES' on a piece. If patient actually closes eyes then score.: followed written direction Score Score: 26 Activity of Daily Living Bathing - sponge bath, tub bath or shower: receives help in bathing more than one body part (or not bathed) Dressing - getting clothes from closets & drawers, including inner/outer garments & fasteners.: receives help getting clothes or getting dressed, or stays undressed Toileting - going to the 'toilet room' for urine/bowel elimination & cleaning self/arranging clothes: goes to toilet room, cleans self, arranges clothes without help Transfer: moves in & out of bed or chair with help Continence: has occasional 'accidents' Feeding: feeds self without help Total Score: 2 Information obtained from: patient Using telephone: independent Traveling: independent Shopping: needs assistance Preparing meals: needs assistance Housework: needs assistance Taking medicine: independent Managing money: independent PHQ-9 Over the last 2 weeks, how often have you been bothered by any of the following problems? 1. Little interest or pleasure in doing things: several days 2. Feeling down, depressed, or hopeless: several days 3. Trouble falling or staying asleep, or sleeping too much: several days 4. Feeling tired or having little energy: several days 5. Poor appetite or overeating: several days 6. Feeling bad about yourself - or that you are a failure or have let yourself or your family down: not at all 7. Trouble concentrating on things, such as reading the newspaper or watching television: not at all 8. Moving or speaking so slowly that other people could have noticed. Or the opposite - being so fidgety or restless that you have been moving around a lot more than usual: not at all 9. Thoughts that you would be better off or of hurting yourself in some way: not at all Total score: 5 Depression Screening Interpretation: Positive Depression Screening Follow-up: Existing condition, Community Mental Health Worker F/U and Follow-up Visit Requested Depression Screening Done: Yes 06182 - PHQ-9 Billing: Yes Source: Developed by Drs. Krish Anderson, Jenae Pelaez, Dwight Johns and colleagues, with an educational deirdre from [employer]. Thrive Questionnaire Date Thrive assessed: 04/09/25 I am a: Patient What is your living situation today?: I have a steady place to live Within the past 12 months, did the food you bought not last and you didn't have the money to get more?: Never true Within the past 12 months, did you worry whether your food would run out before you got money to buy more?: Never true Do you have trouble paying for medicines?: No Do you have trouble getting transportation to medical appointments?: No Do you have trouble paying your heating and electricity bill?: No Do you have trouble taking care of your child, family member or friend?: No Do you have trouble with day-to-day activities such as bathing, preparing meals, shopping, managing finances, etc.?: Yes Are you currently unemployed and looking for a job?: No Are you interested in more education?: No Please select the resources that you would like help with: None Currently or been in a relationship where the following occur: No concerns reported THRIVE Score: 0 MINNIE-7 AMB Questionnaire MINNIE-7 Date MINNIE - 7 assessed: 04/09/25 Feeling nervous, anxious, or on edge: 0 = Not at all Not being able to stop or control worryin = Not at all Worrying too much about different things: 0 = Not at all Trouble relaxin = Not at all Being so restless that it is hard to sit still: 0 = Not at all Becoming easily annoyed or irritable: 0 = Not at all Feeling afraid as if something awful might happen: 0 = Not at all Total MINNIE-7 score (0-4 normal; 5-9 mild; 10-14 moderate; 15-21 severe): 0 Source: Developed by Drs. Krish Anderson, Jenae Pelaez, Dwight Johns and colleagues, with an educational deirdre from [employer]. AUDIT C Alcohol Use Questionnaire (AUDIT-C) 1. How often do you have a drink containing alcohol?: Never Total Score: 0 Score Reviewed/Action Taken: No Review of Systems Const All systems reviewed & are unremarkable except as noted in HPI and below Card Denies chest pain at rest, Denies chest pain with activity, Denies edema, Denies irregular heart rhythm, Denies claudication, Denies dyspnea, Denies dyspnea on exertion, Denies orthopnea, Denies paroxysmal nocturnal dyspnea and Denies slow heart rate Resp Denies cough, Denies dyspnea and Denies dyspnea on exertion GI Denies abdominal pain, Denies change in bowel habits, Denies excessive flatus, Denies nausea and Denies vomiting Denies urinary incontinence, Denies urinary hesitancy and Denies urinary urgency Neuro Denies behavioral changes and Denies lack of coordination Psych Denies behavioral changes Physical Exam Vital Signs: Last Vital Signs Temp 97.1 F 04/09/25 12:46 Pulse 64 04/09/25 12:46 BP 140/68 H 04/09/25 12:46 Pulse Ox 97 04/09/25 12:46 Oxygen Delivery Method Room Air 04/09/25 12:46 BMI result Body Mass Index 36.0 Resp Effort & Inspection: normal respiratory effort Auscultation: clear to auscultation bilaterally Cardio Jugular venous distension: no JVD Rate: regular rate Rhythm: regular rhythm Heart sounds: S1 normal heart sound present and S2 normal heart sound present Neuro Romberg Test: Negative Extrem General: Yes full ROM Results AMB Hemoglobin A1c AMB Hemoglobin A1c 10.1 % Last Edit by DANIELLE Pruitt on 04/09/25 13:0 9 Assessment & Plan Assessment & Plan (1) Encounter for Medicare annual wellness exam: Code(s): Z00.00 - Encounter for general adult medical examination without abnormal findings (2) Mild depression: Code(s): F32.0 - Major depressive disorder, single episode, mild (3) Diabetes mellitus: Code(s): E11.9 - Type 2 diabetes mellitus without complications (4) Osteoarthritis of knees, bilateral: Code(s): M17.0 - Bilateral primary osteoarthritis of knee Plan Plan Patient was informed and verbally consented to the use of an ambient scribe for clinic note documentation during this visit. 1. Type 2 diabetes mellitus without complications E11.9 HCC 19 The patient's diabetes management includes Jardiance 10 mg, but adherence is uncertain, necessitating further evaluation and possible adjustment of her treatment plan. 2. Major depressive disorder, recurrent, mild F33.0 HCC 59 The patient is under the care of a mental health provider for depression management. 3. Encounter for general adult medical examination without abnormal findings Z00.00 Orders: Orders AMB Hemoglobin A1c Today E11.9 - Type 2 diabetes mellitus without complications MM tomosynthesis screening BI Today Z12.31 - Encounter for screening mammogram for malignant neoplasm of breast XR DEXA axial skeleton Today Z78.0 - Asymptomatic menopausal state Lipid Panel Today E78.5 - Hyperlipidemia, unspecified Microalbumin, Random (w Creat) Today R80.9 - Proteinuria, unspecified Vitamin D 25-OH Total Today E55.9 - Vitamin D deficiency, unspecified Comprehensive [place]. Panel Fast Today E11.9 - Type 2 diabetes mellitus without complications Referrals Orthopedics Referral M17.0 - Bilateral primary osteoarthritis of knee Quality Reporting (2019) Depression/Bipolar (159/160/161/177) PHQ-9: Total score: 5 Coding Level of Care Code Medicare First (G0438) Est Pt Level 3 (29178) Diagnoses Encounter for Medicare annual wellness exam Z00.00 Mild depression F32.0 Diabetes mellitus E11.9 Osteoarthritis of knees, bilateral M17.0 Additional Codes PHQ-9 - 02392 - PHQ-9 Billing: Yes ([id number]) Time Spent (min) 36
[2025-04-09 12:46] VITALS: BP 140/68; PULSE 64; TEMP 36.2; O2SAT 97; BMI 36.0
[2025-04-09 13:10] VITALS: BP 135/70
--- OUTSIDE RECORDS SUMMARY | 2025-04-09 14:55 | XMS_ITS | Patient Health Record ---
Author Organization [facility] Address [address] [place] [address] Care Team Providers Care Crayon Grader Name Role Phone June Lagos Primary Care Provider Adalberto Nguyễn Jr Unavailable [phone] Allergies Allergen (clinical drug ingredient) Drug/Non Drug Allergy documented on EMR Reaction Allergy Type Onset Date Status tramadol Tramadol HCl Unknown Drug Allergy Acti ve acetaminophen / oxycodone Percocet Unknown Drug Allergy Active Motrin Unknown Drug Allergy Active morphine Morphine Sulfate Unknown Drug Allergy Active meperidine Demerol Unknown Drug Allergy Active Reason For Referral No Information Medications Medication SIG (Take, Route, Frequency, Duration) Notes Start Date End Date Status Colyte with Flavor Packs 240 GM As directed Orally Over the specified time. for 1 day(s) Active Social History Tobacco Use: Social History Observation Description Date Details (start date - stop date) Never Smoker NA - NA Tobacco Use/Smoking Question Answer Notes Patient is a nonsmoker Alcohol Screen Question Answer Notes Did you have a drink containing alcohol in the p ast year? No Points 0 Interpretation Negative Problems Problem Type SNOMED Code ICD Code Onset Dates Problem Status W/U Status Risk Notes Problem [id number] Colon cancer screening (Z12.11) Active confirmed Plan Of Treatment Future Test Test Name Order Date COLONOSCOPY 03/23/2017 Insurance Providers Payer Name Payer Address Payer Phone Subscriber Number Group Number Insured Name Patient Relationship to Insured Coverage Start Date Coverage End Date [facility] [address] [place] [address] [id number] JOSELINE TASHIA Self - patient is the insured MEDICAID OF [place] [address] [place] [phone] [id number] TASHIA TREVIZO Self - patient is the insured Medical (General) History Medical History History ICD Code Arthritis both knees Denies SC,DM,CVA,Lung disease,renal dise ase
== END 2025-04-09 13:31 | disposition home or self-care (01) ==
LOC: HO.HMCH 12:23
PROVIDERS: PCP Internal Medicine; Visit Provider Internal Medicine
DX: Z00.00 Encounter for general adult medical examination without abnormal findings (principal); F32.0 Major depressive disorder, single episode, mild; E11.9 Type 2 diabetes mellitus without complications; M17.0 Bilateral primary osteoarthritis of knee

== ENCOUNTER → 2025-04-09 12:22 | Outpatient (BNVA) | payer OTHER, SELFPAY | PROVIDERS: PCP Internal Medicine; Visit Provider Internal Medicine | DX: Z00.00 Encounter for general adult medical examination without abnormal findings (principal); M85.80 Other specified disorders of bone density and structure, unspecified site; E11.9 Type 2 diabetes mellitus without complications; R32 Unspecified urinary incontinence; F32.0 Major depressive disorder, single episode, mild; M17.0 Bilateral primary osteoarthritis of knee; E78.5 Hyperlipidemia, unspecified; R80.9 Proteinuria, unspecified; E55.9 Vitamin D deficiency, unspecified; Z78.0 Asymptomatic menopausal state | CPT/HCPCS: 83036; 96127; 99212 ==

== ENCOUNTER 2025-04-22 12:17 | Emergency (ER) | payer OTHER, SELFPAY ==
--- NOTE | 2025-04-22 | ECG_ITS ---
Test Reason : CHEST PAIN Blood Pressure : */* mmHG Vent. Rate : 66 BPM Atrial Rate : 66 BPM P-R Int : 146 ms QRS Dur : 78 ms QT Int : 422 ms P-R-T Axes : 12 -14 31 degrees QTcB Int : 442 ms Normal sinus rhythm Normal ECG When compared with ECG of 18-Aug-2020 20:29, No significant change was found Referred By: Augusta Mistry Electronically Signed By: RENATO ALVA
--- NOTE | ~2025-04-22 | XR_ITS ---
EXAMINATION: XR CHEST CLINICAL INFORMATION: cp/cough COMPARISON: August 16, 2020. Correlated to CT chest dated August 18, 2020. TECHNIQUE: 2 views of the chest were obtained. FINDINGS: No consolidation, pleural effusion or pneumothorax. No hyperinflation. Mild pulmonary reticular pattern. Cardiomediastinal silhouette size is normal with a round cardiac apex. There is a calcification in the right pulmonary hilum. Multilevel thoracic spondylosis. Vascular clips right upper quadrant abdomen. Patient's large body habitus. Degenerative changes in the acromioclavicular joints. XR/XR chest 2V IMPRESSION: Probable chronic interstitial lung disease without acute airspace disease. Focal calcification right perihilar probably calcified lymph node. Electronically signed by: Ramses Hardy MD 04/22/2025 01:12 PM EDT
[2025-04-22 12:24] VITALS: BP 160/80; BP 162/57; PULSE 68; PULSE 74; RESP 18; TEMP 37.1; O2SAT 95; O2SAT 99; BMI 33.3
[2025-04-22 12:54] LABS: MANUAL DIFF FLAG NO
[2025-04-22 12:55] LABS: Hematocrit 36.0 % (37.0-47.0); Hemoglobin 12.1 g/dl (12.0-16.0); Imm Gran Abs Auto 0.01 X10*3/uL (0.00-0.03); Imm Gran Pct Auto 0.2 % (0.0-0.4); Lymphocytes Absolute Auto 2.5 X10*3/uL (1.2-4.9); Mean Corpuscular HGB Conc 33.6 g/dl (31.0-35.0); Mean Corpuscular Hemoglobin 27.7 pg (27.0-33.0); Mean Corpuscular Volume 82.4 fL (80.0-98.0); NRBC Abs Auto 0.000 X10*3/uL (0.0-0.012); NRBC Pct Auto 0.0 /100WBC (0.0-0.2); Platelet Count 197 X10*3/uL (160-400); Red Blood Count 4.37 X10*6/uL (4.20-5.50); White Blood Count 5.7 X10*3/uL (4.8-10.8)
--- NOTE | 2025-04-22 12:55 | ED.URI ---
HPI - URI/Sore Throat General Chief Complaint: Upper Respiratory Symptoms Stated Complaint: DRY COUGH,LETHARGY X3D PER EMS Source: patient, EMS and old records reviewed Mode of arrival: EMS Limitations: no limitations History of Present Illness ED Provider: VANIA MAIER Narrative: 75 yo female with PMH of HLD, HTN, DM, AMBRIZ, arthritis, DM on oral medications but poorly controlled and last hemoglobin A1c was 10 she is here with c/o dry non productive cough, feeling cold, no sputum. She denies CP/SOB. She notes her sugar is high and she laughs because she ate corn flakes with sugar. She denies any body aches. She thinks this all started after being at her day program and the air conditioning was too cold. She has felt a chill since then. The program provider reports she needed to get a COVID test MD elicited complaint: cough and rhinorrhea Onset (ago): day(s) (5) Consistency: constant Severity: mild Description of mucous: clear Able to tolerate fluids by mouth: Yes Exacerbating factors: nothing Relieving factors: nothing Context: other Associated symptoms: chills, rhinorrhea and cough Treatments prior to arrival: none Related Data Previous Rx's ?Medication ?Instructions ?Recorded adult diapers pull-ups #240 04/09/25 blood sugar diagnostic (FreeStyle #100 04/09/25 Lite Strips) blood-glucose meter (FreeStyle #1 04/09/25 Lite Meter kit) empagliflozin 10 mg tablet 10 mg PO DAILY 90 days #90 tabs 04/09/25 (Jardiance) ezetimibe 10 mg tablet 10 mg PO DAILY 90 days #90 tabs 04/09/25 lancets 28 gauge (FreeStyle #100 ea 04/09/25 Lancets) losartan 25 mg tablet 25 mg PO DAILY 90 days #90 tabs 04/09/25 metformin 1,000 mg tablet 1,000 mg PO BID 90 days #180 tabs 04/09/25 pioglitazone 30 mg tablet 30 mg PO DAILY 90 days #90 tabs 04/09/25 rosuvastatin 40 mg tablet 40 mg PO DAILY 90 days #90 tabs 04/09/25 underpads 30 X 36 (Certainty #48 04/09/25 Underpads) walker (Ultra-Light Rollator misc) #1 04/17/25 Allergies Allergy/AdvReac Type Severity Reaction Status Date / Time lisinopril (LISINOPRIL) Allergy Intermediate SWELLING Verified 04/22/25 12:27 morphine (Morphine) Allergy Mild pruritus Verified 04/22/25 12:27 amitriptyline AdvReac Intermediate dizziness Verified 04/22/25 12:27 celecoxib (From Celebrex) AdvReac Intermediate Dizziness Verified 04/22/25 12:27 codeine (Tylenol-Codeine) AdvReac Intermediate dizziness Verified 04/22/25 12:27 ibuprofen (IBUPROFEN) AdvReac Intermediate DIZZY Verified 04/22/25 12:27 oxycodone (Percocet) AdvReac Intermediate stomach Verified 04/22/25 12:27 upset, headaches tramadol (TRAMADOL) AdvReac Intermediate DIZZY, Verified 04/22/25 12:27 dizziness Review of Systems Review of Systems: Constitutional : No Fever, No Chills, pos Fatigue ENT/Mouth : No sore throat, pos Rhinorrhea Eyes: No Eye Pain, No Swelling, No Redness Cardiovascular : No Chest Pain, No SOB, No Dyspnea on Exertion Respiratory : pos Cough, No Sputum Gastrointestinal : No Nausea, No Vomiting, No Diarrhea, No abdominal Pain Genitourinary : No Dysuria, No Urinary Frequency, No Hematuria, Musculoskeletal : No joint pain, No Myalgias, No Joint Swelling Skin : No Skin Lesions, No rash Neuro : No Weakness, No Numbness, No Dizziness, positive Headache All other systems reviewed and are negative [facility] Past Medical History Attestation statement: The following information was validated with the patient. Source: old records reviewed Medical History Diabetes mellitus Physical exam Urge urinary incontinence Shoulder pain Obese Mild depression Knee osteoarthritis AMBRIZ (nonalcoholic steatohepatitis) Pure hypercholesterolemia Surgical History H/O arthroscopy of left knee History of hemorrhoidectomy History of arthroscopy of right knee History of cholecystectomy History of section Family History Family History Father Lung cancer Mother No problems noted. Social History Social History Household Members: Spouse Housing: House Do you presently have visiting nurse or other home services: No Alcohol intake: never Patient Tobacco Use Status: Never used Tobacco Smoked in Last 30 Days: No e-Cigarette/Vaping Use: Never Used Second Hand Smoke Exposure: No Use of substances other than those prescribed or required for medical reasons: No Advance Directives: No Advance Directives Information Provided: Yes Do you have a plan to hurt others: No Plan service: No Current occupational status: retired Sexual orientation: Straight/Heterosexual Gender identity: Female Cognitive needs: No Hearing needs: No Vision needs: Yes (reading glasses) Physical Exam Vital Signs: Vital Signs: Last Vital Signs Temp 98.4 F 04/22/25 14:28 Pulse 66 04/22/25 14:28 Resp 14 04/22/25 14:28 BP 139/52 L 04/22/25 14:28 Pulse Ox 98 04/22/25 14:28 O2 Del Method Room Air 04/22/25 14:28 BMI result Body Mass Index 33.3 Appearance: Alert. Oriented X3. No acute distress. Eyes: Pupils equal, round and reactive to light. ENT: Pharynx normal. clear runny nose Neck: Normal inspection. Neck supple. CVS: Normal heart rate and rhythm. Pulses normal. Respiratory: No respiratory distress. Breath sounds normal. Abdomen: Soft and nontender. Skin: Skin warm and dry. Normal skin color. Normal skin turgor. Extremities: No lower extremity edema. Neuro: Oriented X 3. No motor deficit. No sensory deficit. CN2-12 intact Medical Decision Making Medical Decision Making MDM Narrative: 75 yo female with PMH of HLD, HTN, DM, AMBRIZ, arthritis, DM on oral medications but poorly controlled and last hemoglobin A1c was 10 she is here with c/o URI symptoms she denies CP/SOB to me she states she has a dry cough and runny nose. She wants to be tested for covid. She is eating and drinking well. She did have some loose stool. She denies fever. Overall she looks well. Differential Diagnosis Differential Diagnoses: The differential diagnosis associated with the presentation includes URI, non compliance with DM regimen Admission/Observation Consideration of admission/observation: Escalation of care including admission/observation considered no hypoxia, repeat trop negative Lab Data [facility] Lab Attestation statement: I reviewed the patient's lab results. repeat trop flat 04/22/25 12:51 04/22/25 12:51 Labs: Lab Results 04/22/25 04/22/25 04/22/25 Range/Units 12:28 12:50 12:51 WBC 5.7 (4.8-10.8) X10*3/uL RBC 4.37 (4.20-5.50) X10*6/uL Hgb 12.1 (12.0-16.0) g/dl Hct 36.0 L (37.0-47.0) % MCV 82.4 (80.0-98.0) fL MCH 27.7 (27.0-33.0) pg MCHC 33.6 (31.0-35.0) g/dl RDW 12.4 (11.0-16.0) % Plt Count 197 (160-400) X10*3/uL MPV 10.5 (9.4-12.3) fL Immature Gran % (Auto) 0.2 (0.0-0.4) % Neut % (Auto) 43.8 L (45-73) % Lymph % (Auto) 44.6 H (20-40) % [place] % (Auto) 9.3 (2-11) % Eos % (Auto) 1.6 (0-4) % Baso % (Auto) 0.5 (0-2) % Lymph # (Auto) 2.5 (1.2-4.9) X10*3/uL [place] # (Auto) 0.5 (0.1-1.2) X10*3/uL Eos # (Auto) 0.1 (0.0-0.4) X10*3/uL Baso # (Auto) 0.0 (0.0-0.2) X10*3/uL Abs Immat Gran (auto) 0.01 (0.00-0.03) X10*3/uL Absolute Neuts (auto) 2.5 (2.0-8.3) x10*3/uL Absolute Nucleated RBC 0.000 (0.0-0.012) X10*3/uL Nucleated RBC % (auto) 0.0 (0.0-0.2) /100WBC Sodium 139 (135-145) mmol/L Potassium 3.8 (3.3-5.1) mmol/L Chloride 106 (96-108) mmol/L Carbon Dioxide 25 (22-29) mmol/L Anion Gap 12 (12-20) BUN 16 (9-16) mg/dL Creatinine 0.75 (0.5-1.4) mg/dL Estim Creat Clear Calc 66.6 Estimated GFR > 60 POC Glucose 292 H (60-115) mg/dL Random Glucose 329 H (60-115) mg/dL Calcium 9.0 D (8.4-10.2) mg/dL Troponin I High Sens 20.4 H (<3.5-17.0) ng/L B-Natriuretic Peptide 12 (<100) pg/mL COVID-19 (ZAHEER) Positive A (Negative) COVID-19 Clin Com See Note Influenza Type A (PEDRO LUIS) Negative (Negative) Influenza Type B (PEDRO LUIS) Negative (Negative) Influenza A & B Note See Note 04/22/25 Range/Units 13:59 WBC (4.8-10.8) X10*3/uL RBC (4.20-5.50) X10*6/uL Hgb (12.0-16.0) g/dl Hct (37.0-47.0) % MCV (80.0-98.0) fL MCH (27.0-33.0) pg MCHC (31.0-35.0) g/dl RDW (11.0-16.0) % Plt Count (160-400) X10*3/uL MPV (9.4-12.3) fL Immature Gran % (Auto) (0.0-0.4) % Neut % (Auto) (45-73) % Lymph % (Auto) (20-40) % [place] % (Auto) (2-11) % Eos % (Auto) (0-4) % Baso % (Auto) (0-2) % Lymph # (Auto) (1.2-4.9) X10*3/uL [place] # (Auto) (0.1-1.2) X10*3/uL Eos # (Auto) (0.0-0.4) X10*3/uL Baso # (Auto) (0.0-0.2) X10*3/uL Abs Immat Gran (auto) (0.00-0.03) X10*3/uL Absolute Neuts (auto) (2.0-8.3) x10*3/uL Absolute Nucleated RBC (0.0-0.012) X10*3/uL Nucleated RBC % (auto) (0.0-0.2) /100WBC Sodium (135-145) mmol/L Potassium (3.3-5.1) mmol/L Chloride (96-108) mmol/L Carbon Dioxide (22-29) mmol/L Anion Gap (12-20) BUN (9-16) mg/dL Creatinine (0.5-1.4) mg/dL Estim Creat Clear Calc Estimated GFR POC Glucose (60-115) mg/dL Random Glucose (60-115) mg/dL Calcium (8.4-10.2) mg/dL Troponin I High Sens 17.8 H (<3.5-17.0) ng/L B-Natriuretic Peptide (<100) pg/mL COVID-19 (ZAHEER) (Negative) COVID-19 Clin Com Influenza Type A (PEDRO LUIS) (Negative) Influenza Type B (PEDRO LUIS) (Negative) Influenza A & B Note Independent Interpretation I performed an independent interpretation of an: EKG and Plain X-Ray (normal ) Interpretation: Rate: 66 Rhythm: NSR Priddy: left Normal P waves. Normal JIN. Normal QRS complex. ST T wave : no CARSON, nonspecific ST T wave changes qTC: 442 prior studies: no acute ischemia The study has been interpreted contemporaneously by me. . Radiology Impression Discussion of test interpretation with radiology: I have reviewed the radiologist's reading. Independent Historian Clinical information obtained from an independent historian. History obtained from or confirmed by: EMS External Record Review External record reviewed: Outpatient record and Prior outpatient labs Prescription Management I considered prescription management with: Other Discharge Plan Discharge Clinical Impression: COVID-19 Patient Disposition: Home, Self-Care Instructions: COVID-19 and Chronic Health Conditions (ED) Additional Instructions: labs reassuring chest xray normal you have covid you need to monitor your symptoms, return for worsening pain, trouble breathing, unable to walk, or any other concerns you should wear a mask for 7 days would avoid day programs for one week Prescriptions: No Action (DME) Ultra-Light Rollator Misc See Rx Instructions .Route Qty: 1 0RF Rx Instructions: As directed (DME) adult diapers pull-ups medium See Rx Instructions .Route .MEDSUPPLY Qty: 240 11RF Rx Instructions: As directed (DME) FreeStyle Lite Strips Strip See Rx Instructions .Route Qty: 100 3RF Rx Instructions: Use 1 test strip once a day (DME) blood-glucose meter [FreeStyle Lite Meter] Kit See Rx Instructions .Route Qty: 1 0RF Rx Instructions: As directed Jardiance 10 mg tablet 10 mg PO DAILY 90 Days Qty: 90 1RF ezetimibe 10 mg tablet 10 mg PO DAILY 90 Days Qty: 90 1RF (DME) lancets [FreeStyle Lancets] 28 gauge misc See Rx Instructions .Route Qty: 100 3RF Rx Instructions: Use 1 lancet once a day losartan 25 mg tablet 25 mg PO DAILY 90 Days Qty: 90 1RF metformin 1,000 mg tablet 1,000 mg PO BID 90 Days Qty: 180 1RF pioglitazone 30 mg tablet 30 mg PO DAILY 90 Days Qty: 90 1RF rosuvastatin 40 mg tablet 40 mg PO DAILY 90 Days Qty: 90 1RF (DME) underpads [Certainty Underpads] 30 X 36 pad See Rx Instructions .Route Qty: 48 11RF Rx Instructions: As directed Print Language: Colombian
[2025-04-22 13:01] LABS: Glucose, Whole Blood 292 mg/dL (60-115)
[2025-04-22 13:11] LABS: Anion Gap 12 (12-20); Blood Urea Nitrogen 16 mg/dL (9-16); Calcium 9.0 mg/dL (8.4-10.2); Carbon Dioxide 25 mmol/L (22-29); Chloride 106 mmol/L (96-108); Creatinine Clr Calc Pharmacy 66.6; Estimated Glomerular Filt Rate > 60; Potassium 3.8 mmol/L (3.3-5.1); Sodium 139 mmol/L (135-145)
[2025-04-22 13:15] LABS: COVID-19 Test Positive (Negative); IDNOW Serial# 55D5AD1C
[2025-04-22 13:19] LABS: B Type Natriuretic Peptide 12 pg/mL (<100)
[2025-04-22 13:21] LABS: Troponin-I High Sensitivity 20.4 ng/L (<3.5-17.0)
[2025-04-22 13:26] LABS: IDNOW Serial# 58CA691E; Influenza B2 Negative (Negative)
[2025-04-22 14:26] LABS: Troponin-I High Sensitivity 17.8 ng/L (<3.5-17.0)
[2025-04-22 14:28] VITALS: BP 139/52; PULSE 66; RESP 14; TEMP 36.9; O2SAT 98
[2025-04-22 15:11] VITALS: BP 139/52; PULSE 66; RESP 14; TEMP 36.9; O2SAT 98
--- OUTSIDE RECORDS SUMMARY | 2025-04-22 17:26 | XMS_ITS | Continuity of Care Document ---
Author Name [facility], Medical Address [address] [place] [address] Organization Unknown Address [address] [place] [address] Medications No known medications Problems No known problems
--- OUTSIDE RECORDS SUMMARY | 2025-04-22 17:26 | XMS_ITS | Patient Health Record ---
Author Organization [facility] Address [address] [place] [address] Care Team Providers Care Car Sales Consultant Name Role Phone June Lagos Primary Care Provider Adalberto Nguyễn Jr Unavailable Allergies Allergen (clinical drug ingredient) Drug/Non Drug [...] Problem Status W/U Status Risk Notes Problem [id number] Colon cancer screening (Z12.11) Active confirmed Plan Of Treatment Future Test Test Name Order Date COLONOSCOPY 03/23/2017 Insurance Providers Payer Name Payer Address Payer Phone Subscriber Number Group Number Insured Name Patient Relationship to Insured Coverage Start Date Coverage End Date [facility] [address] [place] [address] [id number] JOSELINE TASHIA Self - patient is the insured MEDICAID OF [employer] [address] [place] [phone] [id number] TASHIA TREVIZO Self - patient is the insured Medical (General) History Medical History History ICD Code Arthritis both knees Denies CO,DM,CVA,Lung disease,renal dise ase
== END 2025-04-22 15:12 | disposition home or self-care (01) ==
PROVIDERS: Emergency Provider Emergency Medicine; PCP Internal Medicine
DX: U07.1 COVID-19 (principal); R07.9 Chest pain, unspecified; R05.9 Cough, unspecified; I10 Essential (primary) hypertension; E11.9 Type 2 diabetes mellitus without complications; Z79.899 Other long term (current) drug therapy
CPT/HCPCS: 36415; 71046; 80048; 82947; 83880; 84484; 85025; 87502; 87635; 93005; 99283; 99285

== ENCOUNTER → 2025-04-22 12:31 | Outpatient (BNV) | payer OTHER, SELFPAY | PROVIDERS: Emergency Provider Emergency Medicine; PCP Internal Medicine; Visit Provider Internal Medicine | DX: R07.9 Chest pain, unspecified (principal) | CPT/HCPCS: 93010 ==

== ENCOUNTER → 2025-04-22 13:01 | Outpatient (BNV) | payer MEDICARE, MEDICAID, SELFPAY | PROVIDERS: Emergency Provider Emergency Medicine; PCP Internal Medicine; Visit Provider Radiology Diagnostic Radiology | DX: R07.9 Chest pain, unspecified (principal); R05.9 Cough, unspecified | CPT/HCPCS: 71046 ==

== ENCOUNTER 2025-06-18 15:18 | Outpatient (REF) | payer OTHER, SELFPAY | END 2025-06-18 15:19 | disposition home or self-care (01) | LOC: HO.HOSX 15:18 | PROVIDERS: Visit Provider Physician Assistant | DX: Z13.89 Encounter for screening for other disorder (principal) ==

== ENCOUNTER 2025-06-19 07:42 | Outpatient (AMB) | payer MEDICARE, MEDICAID, SELFPAY ==
--- OUTSIDE RECORDS SUMMARY | 2025-06-19 07:45 | XMS_ITS | Patient Health Record ---
Author Organization [facility] Address [address] [place] [address] Care Team Providers Care Platform Material Handler Manager Name Role Phone June Lagos Primary Care [...] GM As directed Orally Over the specified time.; Duration: 1 day(s) Active Social History Tobacco Use: [...] Problem Status W/U Status Risk Notes Problem Colon cancer screening ([id number]) Colon cancer screening (Z12.11) Active confirmed Plan Of Treatment Future Test Test Name Order Date COLONOSCOPY 03/23/2017 Insurance Providers Payer Name Payer Address Payer Phone Subscriber Number Group Number Insured Name Patient Relationship to Insured Coverage Start Date Coverage End Date [facility] [address] [place] [address] [id number] TASHIA TREVIZO Self - patient is the insured [facility] [facility] [address] [place] [address] [id number] TASHIA TREVIZO Self - patient is the insured Medical (General) History Medical History History ICD Code Arthritis both knees Denies AL,DM,CVA,Lung disease,renal dise ase
--- NOTE | 2025-06-19 08:28 | A.OFFVIS_ITS ---
Vital Signs 06/19/25 08:33 Height 5 ft 2 in Weight 182 lb BMI 33.3 Intake Visit Reasons: OV- B/L knee pain, last seen 12/30/21 TM Intake Note: Claudia is a 75 year old female who presents today as a new problem for her bilateral knee pain. Patient was last seen in office on 12/30/21 with TM at their visit she was given an injection. At today's visit she states injections helped a lot, stating her pain started again about a month ago. She states cold weather makes her pain worse. She is requesting to repeat injection. Allergies lisinopril (LISINOPRIL) Allergy (Intermediate, Verified 06/19/25 08:42) SWELLING morphine (Morphine) Allergy (Mild, Verified 06/19/25 08:42) pruritus amitriptyline Adverse Reaction (Intermediate, Verified 06/19/25 08:42) dizziness celecoxib (From Celebrex) Adverse Reaction (Intermediate, Verified 06/19/25 08:42) Dizziness codeine (Tylenol-Codeine) Adverse Reaction (Intermediate, Verified 06/19/25 08:42) dizziness ibuprofen (IBUPROFEN) Adverse Reaction (Intermediate, Verified 06/19/25 08:42) DIZZY oxycodone (Percocet) Adverse Reaction (Intermediate, Verified 06/19/25 08:42) stomach upset, headaches tramadol (TRAMADOL) Adverse Reaction (Intermediate, Verified 06/19/25 08:42) DIZZY, dizziness Medication List - Last Reconciled 06/19/25 by Babar Salazar PA-C [adult diapers pull-ups As directed] blood sugar diagnostic (FreeStyle Lite Strips) Use 1 test strip once a day blood-glucose meter (FreeStyle Lite Meter kit) As directed empagliflozin (Jardiance) 10 mg PO DAILY 90 days ezetimibe 10 mg PO DAILY 90 days lancets (FreeStyle Lancets) Use 1 lancet once a day losartan 25 mg PO DAILY 90 days metformin 1,000 mg PO BID 90 days pioglitazone 30 mg PO DAILY 90 days rosuvastatin 40 mg PO DAILY 90 days underpads (Certainty Underpads) As directed walker (Ultra-Light Rollator misc) As directed HPI HPI OV- B/L knee pain, last seen 12/30/21 TM: Details: 75-year-old female presents to the office today for bilateral knee pain. I last saw her in December of 2021 where she had both knees injected. She states the injections lasted well over a year and have allowed her to perform activities with minimal discomfort. Recently she has developed worsening pain in both knees which are worse with stairs and prolonged standing and walking long distances. [facility] Medical History Diabetes mellitus Physical exam Urge urinary incontinence Shoulder pain Obese Mild depression Knee osteoarthritis AMBRIZ (nonalcoholic steatohepatitis) Pure hypercholesterolemia Surgical History H/O arthroscopy of left knee History of hemorrhoidectomy History of arthroscopy of right knee History of cholecystectomy History of section Family History Father Lung cancer Mother No problems noted. Social History Household Members: Spouse Housing: House Do you presently have visiting nurse or other home services: No Alcohol intake: never Patient Tobacco Use Status: Never used Tobacco e-Cigarette/Vaping Use: Never Used Second Hand Smoke Exposure: No service: No Current occupational status: retired Sexual orientation: Straight/Heterosexual Gender identity: Female Cognitive needs: No Hearing needs: No Vision needs: Yes (reading glasses) Review of Systems Const All systems reviewed & are unremarkable except as noted in HPI and below Physical Exam Vital Signs: BMI result Body Mass Index 33.3 Const General: cooperative and no acute distress Orientation/consciousness: patient oriented x3 Resp Effort & Inspection: normal respiratory effort and able to speak in complete sentences Cardio Peripheral pulses: Peripheral pulses 2+ throughout Neuro General: patient oriented x3 Extrem Other: Bilat knee: skin intact. No erythema or joint effusion. Full ROM with crepitus. Calf supple non tender Office Procedures AMB Joint Injection/Aspiration Joint Injection/Aspiration Primary Site: Right Knee Secondary Site: Left Knee Prep: site was prepped using aseptic technique, ethochloride spray was applied and injection warnings given Injected: 40 mg of, Decadron, with 3 mL of, 1% plain Lidocaine, 0.25% Bupivacaine and in the joint Approach Used: anterolateral Procedure: The patient tolerated the procedure well and there was some relief with the local anesthesia Coding 10667 - Glenohumeral/Tronchanteric Bursa/Intraarticular Procedure code (CPT) selection complete Results Reviewed Results Reviewed: X-rays of both knees obtained in the office today and reviewed by me show severe degenerative changes along the medial joint space with varus deformity. Assessment & Plan Assessment & Plan (1) Osteoarthritis of knees, bilateral: Code(s): M17.0 - Bilateral primary osteoarthritis of knee Category: Medical Plan: We discussed options today, which include steroid injection. The patient did consent to move forward with the injection, which was tolerated well.? I recommended rest, ice and elevation and OTC antiinflammatories prn for discomfort. If symptoms persist over the next 6-8 weeks, they will contact our office, otherwise, prn We also discussed their diabetes and the effect the steroid can have on thier blood glucose levels; therefore, they will continue to monitor these very closely over the next 72 hours Orders: Orders XR Knee Austin 3V Today M25.561 - Pain in right knee, M25.562 - Pain in left knee Coding Level of Care Code Est Pt Level 3 (37028) Complex EM visit Add On G2211 Diagnoses Osteoarthritis of knees, bilateral M17.0 CPT Codes Coding - Joint 7: 15003 - Glenohumeral/Tronchanteric Bursa/Intraarticular ([id number])
[2025-06-19 08:33] VITALS: BMI 33.3
== END 2025-06-19 09:39 | disposition home or self-care (01) ==
LOC: HO.HOS 07:43
PROVIDERS: PCP Internal Medicine; Visit Provider Physician Assistant
DX: M17.0 Bilateral primary osteoarthritis of knee (principal)
CPT/HCPCS: 20610; 99213

== ENCOUNTER 2025-06-19 07:42 | Outpatient (REF) | payer MEDICARE, MEDICAID, SELFPAY ==
--- NOTE | ~2025-06-19 | XR_ITS ---
EXAMINATION: XR KNEE BILATERAL CLINICAL INFORMATION: pain COMPARISON: December 24, 2021 TECHNIQUE: AP bilateral standing view of the knees was obtained. Lateral and sunrise views both knees. FINDINGS: Joint space narrowing involving medial lateral compartments as well as the patellofemoral compartment with associated sclerosis along the articular surfaces and marginal osteophyte formation. There is loss of the joint space at the medial compartments of both knees. No acute fracture or dislocation. There is a small volume suprapatellar bursa joint effusion on the left knee. Osteopenia versus osteoporosis. No lytic or blastic lesions. There is exostosis at the quadriceps tendon insertion, bilaterally. XR/XR Knee Austin 3V IMPRESSION: Tricompartmental osteoarthrosis/osteoarthritis involving mostly the medial compartments, moderate to severe. Small volume joint effusion, suprapatellar bursa left knee. Osteopenia versus osteoporosis. Overall similar since prior exam. Electronically signed by: Ramses Hardy MD 06/19/2025 08:40 AM SULMA
== END 2025-06-19 07:43 | disposition home or self-care (01) ==
LOC: HO.HOSX 07:42
PROVIDERS: PCP Internal Medicine; Visit Provider Physician Assistant
DX: M17.0 Bilateral primary osteoarthritis of knee (principal)
CPT/HCPCS: 20610; 73562; 99212; J0665; J1100; J2003

== ENCOUNTER → 2025-06-19 08:24 | Outpatient (BNV) | payer MEDICARE, MEDICAID, SELFPAY | PROVIDERS: PCP Internal Medicine; Visit Provider Radiology Diagnostic Radiology | DX: M17.0 Bilateral primary osteoarthritis of knee (principal); M25.461 Effusion, right knee; M25.462 Effusion, left knee | CPT/HCPCS: 73562 ==